=== PATIENT | female | born 1960 | race Caucasian/White ===

== ENCOUNTER 2016-11-05 08:02 | Day surgery (SDC) | payer SELFPAY ==
[~2016-11-05] VITALS: Ht 162.6 cm; Wt 73.5 kg
[2016-11-05] VITALS (13 sets, daily range): BP systolic 112–146; BP diastolic 62–107
[~2016-11-05 08:02] MED LIST: ACID MED; ACYC200C PO; ACYCLOVIR 200 MG PO; ACYSUS PO; ASP81TEC PO; ATOR20TA66 PO; ATOR80TA PO; CALC-760 PO; CALC-787 PO; CALC-794 PO; CANA100T PO; CLOP75TA PO; CLOP75TA28 PO; CLPD75T PO; CYCL-97 PO; DEXL60CA5 PO; DULO60CA6 PO; GBPN600T PO; GLIM4TAB PO; HYDR-3454 PO; HYDR1TAB PO; LEVO125T6 PO; LVT.1T PO; MAGN400C PO; MAGN400T6 PO; MELO-198 PO; METF-380 PO; MULT-963 PO; NITR100C3 PO; OMEG-109 PO; OMEP20CA12 PO; OMG1KC PO; PIOG30TA38 PO; POTA10TA36 PO; POTA99TA7 PO; QNPR20T PO; SITA1TAB6 PO; VARE1TAB17 PO; [UNRECOGNIZED DRUG - OTHER] PO
[2016-11-05] MEDS ORDERED: NS IV 1000 ML 1,000 ML ONE (08:03)
[2016-11-05] MEDS ORDERED: LIDOCAINE 1% INJ 20 ML (XYLOCAINE) VIAL ONE (08:03)
[2016-11-05] MEDS ORDERED: HEParin (CATH LAB) 2,000 ML IV ONE (08:03)
--- OUTSIDE RECORDS SUMMARY | 2016-11-05 08:05 | XMS REPORT ---
Author Author NADYA DOUGHERTY [facility] Address [address] [place] [address] Care Team Providers Care Format Proofreader Name Role Phone NADYA DOUGHERTY Unavailable PROBLEMS Type Condition ICD9-CM Code AQH43-GT Code Onset Dates Condition Status SNOMED Code Problem Pain in joint, ankle and foot 719.47 Active 025275979 Problem Need for prophylactic vaccination and inoculation, Influenza V04.81 Active 052527320 Problem Unspecified hypertrophic and atrophic condition of skin 701.9 Active 607114447 Problem Depressive disorder, not elsewhere classified 311 Active 41399036 Problem Personal history of tobacco use, presenting hazards to health V15.82 Active 7710647131841 Problem Pain in joint, pelvic region and thigh 719.45 Active 765261826 Problem Neoplasm of uncertain behavior, site unspecified 238.9 Active 785824123 Problem Esophageal reflux 530.81 Active 413753394 Problem Hallux valgus (acquired) 735.0 Active 65050583 Problem Type 2 diabetes mellitus with other diabetic neurological complication E11.49 Active 357302045 Problem Cough 786.2 Active 41173003 Problem Neuritis due to diabetes mellitus E11.41 Active 570821999 Problem Unspecified disorders of bursae and tendons in shoulder region 726.10 Active 52449785 Problem Hyperlipidemia, unspecified hyperlipidemia E78.5 Active 79897891 Problem Type 2 diabetes mellitus with complication E11.8 Active 77010243 Problem Postoperative hypothyroidism E89.0 Active 86682007 Problem Type I diabetes mellitus with peripheral circulatory disorder E10.51 Active 69646614 Problem DM neuro manif type II E11.49 Active 17507565 Problem ZOSTAVAX DX V05.8 Active 20266485 Problem Nontoxic uninodular goiter 241.0 Active 396212236 Problem Coronary atherosclerosis of unspecified type of vessel, [place] or graft 414.00 Active 00748432 Problem 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 881396071 Problem Diabetes E11.9 Active 43445077 Problem 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 Active 8829538 Problem Cervicalgia M54.2 Active 53265437 Problem Retinopathy H35.00 Active 748120987 Problem Lesion of ulnar nerve 354.2 Active 335513142 Problem Lesion of plantar nerve 355.6 Active 385295598 Problem 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 Active 06544024 Problem Nontoxic multinodular goiter 241.1 Active 57593442 Problem Pain in soft tissues of limb 729.5 Active 30027745 Problem Atherosclerosis of [place] arteries of the extremities, unspecified 440.20 Active 620574670360640 Problem Nausea with vomiting 787.01 Active 15398718 Problem Unspecified hereditary and idiopathic peripheral neuropathy 356.9 Active 546918737 Problem Arthralgia of temporomandibular joint 524.62 Active 02598480 Problem Diabetes 250.00 Active 54985855 Problem Postsurgical hypothyroidism 244.0 Active 72456820 Problem 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 Active 324245501 Problem Chronic cholecystitis 575.11 Active 25560887 Problem History of stress test Z92.89 Active 829522150 ALLERGIES Unknown Allergies SOCIAL HISTORY No smoking Hx information available PLAN OF CARE VITAL SIGNS MEDICATIONS Medication Instructions Dosage Frequency Start Date End Date Duration Status Actos 30 MG Orally Once a day 1 tablet 24h Oct, Active Invokana 100 MG Orally Once a day 1 tablet 24h December, 90 days Active RESULTS No Results PROCEDURES No Known procedures IMMUNIZATIONS No Known Immunizations
[2016-11-05] MEDS ORDERED: NS IV 1000 ML 1,000 ML IV SCH (08:30)
[2016-11-05 08:43] LABS: MEAN PLATELET VOLUME 8.6 FL (7.4-10.4); RED BLOOD COUNT 4.08 10^6/uL (4.35-5.85); RED CELL DISTRIBUTION WIDTH 14.8 % (10.0-14.5); WHITE BLOOD COUNT 9.6 10^3/uL (4.3-11.0)
[2016-11-05 08:44] LABS: BILIRUBIN,URINE NEGATIVE (NEGATIVE); KETONES,URINE NEGATIVE (NEGATIVE); LEUKOCYTE ESTERASE ,URINE 2+ (NEGATIVE); NITRITE,URINE POSITIVE (NEGATIVE); PH,URINE 6.5 (5-9); PROTEIN,URINE 2+ (NEGATIVE); UROBILINOGEN,URINE NORMAL (NORMAL)
[2016-11-05 08:51] LABS: PROTHROMBIN TIME PATIENT 12.6 SEC (12.2-14.7)
[2016-11-05 09:00] LABS: SQUAMOUS EPITHELIAL CELL,UR 0-2 /HPF; WBC,URINE 25-50 /HPF
[2016-11-05] MEDS ORDERED: MIDAZOLAM 5 MG/5 ML (VERSED) VIAL ONE (09:01)
[2016-11-05] MEDS ORDERED: fentaNYL INJECTION 100 MCG/2 ML AMP ONE (09:01)
[2016-11-05 09:02] LABS: ALBUMIN 4.1 G/DL (3.2-4.5); BILIRUBIN,TOTAL 0.3 MG/DL (0.1-1.0); CALCIUM 9.6 MG/DL (8.5-10.1); CREATININE SERUM 1.01 MG/DL (0.60-1.30); TOTAL PROTEIN 7.8 G/DL (6.4-8.2)
[2016-11-05] MEDS ORDERED: TICA90TA PO (09:18)
[2016-11-05] MEDS ORDERED: METF500T4 PO (09:18)
[2016-11-05] MEDS ORDERED: CETI10TA17 PO (09:18)
--- NOTE | 2016-11-05 09:22 | Diagnostic Imaging Report ---
EXAMINATION: Portable upright radiograph of the chest. INDICATION: Peripheral arterial disease. FINDINGS: The heart size is normal. The lungs are hyperinflated. No focal consolidation. No effusion nor pneumothorax. The mediastinum and zeke appear unremarkable. IMPRESSION: Hyperinflated clear lungs. Dictated by: Dictated on workstation # [id number]
[2016-11-05] MEDS ORDERED: NITROGLYCERIN DRIP 25 MG/D5W 250 ML IV ONE (09:27)
[2016-11-05] MEDS ORDERED: HEParin 1000 UNIT/ML (10ML VIAL) FOR BOLUS ONE (09:27)
--- NOTE | 2016-11-05 09:42 | Cardiac Procedure Note-CS/ASA ---
Pre-Procedure Note Pre-Op Procedure Note H&P Reviewed The H&P was reviewed, patient examined and no changes noted. Date H&P Reviewed: Nov 05, 2016 Time H&P Reviewed: 09:42 Conscious Sedation Pre-Proced Time Reviewed: 09:42 ASA Class: 3 Airway Mallampati Classification: ([place] appropriate class) I. II. III, IV Lungs Heart ASA score ASA 1: a normal healthy patient ASA 2: a patient with a mild systemic disease (mid diabetes, controlled hypertension, obesity x ASA 3: a patient with a severe systemic disease that limits activity (angina , COPD, prior Myocardial infarction) ASA 4: a patient with an incapacitating disease that is a constant threat to life (CHF, renal failure) ASA 5: a moribund patient not expected to survive 24 hrs. (ruptured aneurysm) ASA 6: a declared brain patient whose organs are being harvested. For emergent operations, add the letter E after the classification Grade 3 Sedation Plan: Analgesia, Amnesia, Plan communicated to team members, Discussed options with patient/fam, Discussed risks with patient/fam Note The patient is an appropriate candidate to undergo the planned procedure, sedation, and anesthesia. The patient immediately re-assessed prior to indication. JESSIE ESPINAL MD Nov 05, 2016 09:42
[2016-11-05] MEDS ORDERED: TICAGRELOR 90 MG TABLET (BRILINTA) PO ONE (10:58)
[2016-11-05] MEDS ORDERED: ASPIRIN 325 MG (5 GR) TABLET ONE (10:58)
[2016-11-05] MEDS ORDERED: PATIENT MAY USE OWN MEDS, ALL PO SCH (11:15)
[2016-11-05] MEDS: NS IV 1000 ML 1,000 ML IV SCH (11:30)
[2016-11-05] MEDS ORDERED: PANTOPRAZOLE 20 MG TABLET (PROTONIX) PO SCH (18:00)
[2016-11-05] MEDS ORDERED: ACYCLOVIR 200 MG CAP (ZOVIRAX) PO SCH (18:00)
[2016-11-05] MEDS: GLIMEPIRIDE 4 MG (AMARYL) TAB PO SCH (19:19)
[2016-11-05] MEDS: MAGNESIUM OXIDE (MAG-OX)400 MG TAB PO SCH (19:19)
[2016-11-05] MEDS: POTASSIUM 99 MG TAB PO SCH (19:20)
[2016-11-05] MEDS: GABAPENTIN 600 MG (NEURONTIN) TAB PO SCH ×2 (19:23→21:11)
[2016-11-05] MEDS: ACYCLOVIR 200 MG CAP (ZOVIRAX) PO SCH (19:23)
[2016-11-05] MEDS ORDERED: LORATADINE (CLARITIN) 10 MG TAB PO SCH (21:00)
[2016-11-05] MEDS ORDERED: GABAPENTIN 600 MG (NEURONTIN) TAB PO SCH (21:00)
[2016-11-05] MEDS ORDERED: ATORVASTATIN 20 MG (LIPITOR) TABLET PO SCH (21:00)
[2016-11-05] MEDS: TICAGRELOR 90 MG TABLET (BRILINTA) PO SCH (21:09)
[2016-11-05] MEDS: ceTIRizine 10 MG (ZyrTEC) TAB NON-FORMULARY PO SCH (21:09)
[2016-11-05] MEDS: DULOXETINE 60 MG CAPSULE PO SCH (21:10)
[2016-11-05] MEDS: OMEPRAZOLE 20 MG (PriLOSEC) CAP NON-FORMULARY PO SCH (21:10)
[2016-11-05] MEDS: ATORVASTATIN 20 MG (LIPITOR) TABLET PO SCH (21:12)
[2016-11-06] VITALS: BP 118/71
[2016-11-06] MEDS: NS IV 1000 ML 1,000 ML IV SCH ×5 (00:34→16:57)
[2016-11-06 04:00] VITALS: BP 108/86
[2016-11-06 04:26] LABS: MEAN PLATELET VOLUME 8.8 FL (7.4-10.4); RED BLOOD COUNT 3.88 10^6/uL (4.35-5.85); RED CELL DISTRIBUTION WIDTH 14.9 % (10.0-14.5); WHITE BLOOD COUNT 11.3 10^3/uL (4.3-11.0)
[2016-11-06 04:47] LABS: ANION GAP 11 MMOL/L (5-14); BLOOD UREA NITROGEN 25 MG/DL (7-18); BUN/CREATININE RATIO 27; CALCIUM 9.2 MG/DL (8.5-10.1); CARBON DIOXIDE 20 MMOL/L (21-32); CHLORIDE 108 MMOL/L (98-107); CREATININE SERUM 0.93 MG/DL (0.60-1.30); GFR ESTIMATED > 60; GLUCOSE 164 MG/DL (70-105); POTASSIUM 4.1 MMOL/L (3.6-5.0); SODIUM 139 MMOL/L (135-145)
[2016-11-06] MEDS: LEVOTHYROXINE 125 MCG (LEVOTHROID) TABLET PO SCH (06:40)
[2016-11-06] MEDS: GLIMEPIRIDE 4 MG (AMARYL) TAB PO SCH ×2 (06:40→18:19)
[2016-11-06] MEDS: OMEPRAZOLE 20 MG (PriLOSEC) CAP NON-FORMULARY PO SCH ×2 (06:41→18:21)
[2016-11-06] MEDS: PIOGLITAZONE 30MG (ACTOS) TAB PO SCH (06:42)
[2016-11-06] MEDS: POTASSIUM 99 MG TAB PO SCH ×2 (06:42→18:18)
[2016-11-06] MEDS: GABAPENTIN 600 MG (NEURONTIN) TAB PO SCH ×3 (06:43→21:01)
[2016-11-06] MEDS: ASPIRIN E.C. 81 MG (ECOTRIN) TAB PO SCH (08:02)
[2016-11-06] MEDS: TICAGRELOR 90 MG TABLET (BRILINTA) PO SCH ×2 (08:02→21:01)
--- NOTE | 2016-11-06 08:03 | Cardiology Progress Note ---
Subjective Subjective/Events-last exam patient is feeling well, no complaint. Review of Systems General: No Chills, No Night Sweats, No Fatigue, No Malaise, No Appetite, No Other HEENT: No Head Aches, No Visual Changes, No Eye Pain, No Ear Pain, No Dysphasia , No Sinus Congestion, No Post Nasal Drip, No Sore Throat, No Other Pulmonary: No Dyspnea, No Cough, No Pleuritic Chest Pain, No Other Cardiovascular: No: Chest Pain, Edema, Lt Headedness, Orthopnea, Other, Palpitations, Paroxysmal Noc. Dyspnea Objective-Cardiology Exam Last Set of Vital Signs Vital Signs 11/06/16 04:00 Temp 97.2 Pulse 101 B/P 108/86 Pulse Ox 94 O2 Delivery Room Air Capillary Refill : Less Than 3 Seconds I&O Bad tableGeneral: Alert, Oriented X3, Cooperative HEENT: Atraumatic, PERRLA Neck: Supple, No JVD, No Thyromegaly Lungs: Clear to Auscultation, Normal Air Movement Heart: Regular Rate, Normal S1, Normal S2, No Murmurs Abdomen: Normal Bowel Sounds, Soft, No Tenderness, No Hepatosplenomegaly, No Masses Extremities: No Clubbing, No Cyanosis, No Edema, Normal Pulses, No Tenderness/ Swelling Skin: No Rashes, No Breakdown, No Significant Lesion Neuro: Normal Gait, Normal Speech, Strength at 5/5 X4 Ext, Normal Tone, Sensation Intact Psych/Mental Status: Mental Status NL, Mood NL Results Lab Laboratory Tests 11/05/16 08:36 11/06/16 03:52 A/P-Cardiology Admission Diagnosis Peripheral arterial disease Hypertension Hyperlipidemia Tobaccoism Assessment/Plan Extensive peripheral arterial disease status post balloon angioplasty and stent to the left SFA, planning for intervention on the right. Coronary artery disease, clinically stable Hypertension, controlled Hyperlipidemia, controlled Tobaccoism educated on smoking cessatio Diabetes mellitus, controlled Clinical Quality Measures DVT/VTE Risk/Contraindication: Risk Factor Score Per Nursin RFS Level Per Nursing on Admit: 4+=Very High JESSIE ESPINAL MD Nov 06, 2016 08:03
[2016-11-06] MEDS: FISH OIL 1200 MG CAPSULE PO SCH (08:04)
--- NOTE | 2016-11-06 08:04 | Cardiac Procedure Note-CS/ASA ---
Pre-Procedure Note Pre-Op Procedure Note H&P Reviewed The H&P was reviewed, patient examined and no changes noted. Date H&P Reviewed: Nov 06, 2016 Time H&P Reviewed: 08:04 Conscious Sedation Pre-Proced Time Reviewed: 08:04 ASA Class: 3 Airway Mallampati Classification: ([place] appropriate class) I. II. III, IV Lungs Heart ASA score ASA 1: a normal healthy patient ASA 2: a patient with a mild systemic disease (mid diabetes, controlled hypertension, obesity x ASA 3: a patient with a severe systemic disease that limits activity (angina , COPD, prior Myocardial infarction) ASA 4: a patient with an incapacitating disease that is a constant threat to life (CHF, renal failure) ASA 5: a moribund patient not expected to survive 24 hrs. (ruptured aneurysm) ASA 6: a declared brain patient whose organs are being harvested. For emergent operations, add the letter E after the classification Grade 3 Sedation Plan: Analgesia, Amnesia, Plan communicated to team members, Discussed options with patient/fam, Discussed risks with patient/fam Note The patient is an appropriate candidate to undergo the planned procedure, sedation, and anesthesia. The patient immediately re-assessed prior to indication. JESSIE ESPINAL MD Nov 06, 2016 08:04
[2016-11-06] MEDS: INVOKANA 100 MG TAB PO SCH (08:05)
[2016-11-06] MEDS: QUINAPRIL 20 MG (ACCUPRIL) TAB PO SCH (08:05)
[2016-11-06 08:13] VITALS: BP 123/70
--- NOTE | 2016-11-06 10:59 | PROCEDURE REPORT ---
PROCEDURE PHYSICIAN: JESSIE ESPINAL PERIPHERAL ANGIOGRAM WITH BILATERAL RUNOFF DATE OF PROCEDURE: 11/05/2016 REFERRING PHYSICIAN: [facility]. BRIEF HISTORY: Mrs. Odonnell is a 56-year-old lady with peripheral arterial disease, coronary artery disease. She is still an active smoker, had worsening of her leg pain and abnormal SERGIO. She had an interventions done in April 2016. PROCEDURE NOTE: After explaining the procedure to the patient, all pros and cons were explained. All questions were answered. The patient signed a consent, then she was placed on the cardiac catheterization laboratory. The right groin was prepped in a sterile fashion. Local anesthesia applied to the right groin. 6-Argentine sheath was placed in the right femoral artery. Runoff of the right lower extremity was done, then a pigtail catheter was advanced to the abdominal aorta. Abdominal aortogram was done. I crossed over using the pigtail with a Storq wire, then exchanged the pigtail into a straight catheter placed in the common iliac artery and runoff of the left lower extremity was done. Then I proceeded with advancement of the wire and placement of the straight catheter down to the popliteal artery. Angiogram of the left lower extremity was done. Then, I evaluated the trifurcation, then I did another view with evaluation using DSA to the calf area and foot area. At that time I reconnected the pressure to the straight catheter, flushed the catheter and evaluate the pressure gradient and there was about 40 mmHg gradient between the popliteal artery and the common femoral artery. There was significant step-off at the proximal SFA and mid and distal SFA. I reintroduced the Storq wire. It dilated the distal portion with a drug coated balloon Lutonix 5.0 x 150 mm. I used the same balloon to dilate the proximal portion and then I used a second Lutonix 6.0 x 150 mm to the proximal SFA. Angiogram showed excellent results. Proximal to that area there was an area of dissection with sluggish flow, dilated with Ashby balloon 6.0 x 80 mm then deployment of a Supera stent 5.5 x 60 mm with excellent results. Post dilated with a 5.0 Lutonix balloon. Angiogram showed excellent results with excellent flow down to the foot. No residual stenosis was noted. The sheath was exchanged into short 6-Argentine sheath. Mynx device deployed. Hemostasis achieved. No complication noted. FINDINGS: 1. Right lower extremity: The patient has two Supera stents 5.5, which were patent. Proximal to the stent there is an area of severe stenosis about 80 to 90% stenosis. 2. Abdominal aortogram: Abdominal aortogram showed mild atherosclerotic disease, nonobstructive disease at the bifurcation. 3. Left lower extremity: The left lower extremity runoff showed multiple segments of severe stenosis with significant gradient during pullback pressure by catheter. Successful drug coated balloon using in the popliteal artery and distal SFA Lutonix 5.0 x 150 mm and the proximal and mid SFA using Lutonix 6.0 x 150 mm with excellent results. At the proximal portion of the SFA there was a small dissection with 70% stenosis. Successful deployment of Supera stent 5.5 x 60 mm with excellent results. No residual stenosis. DISCUSSION AND RECOMMENDATION: The patient was bolused with aspirin and Brilinta. I will continue monitoring her and planning to intervene on the right lower extremity tomorrow. I did not want to discharge her and bring her back due to the fact that she uses metformin and require holding the metformin for 2 days prior and 2 days after the procedure in addition to the readmission labs and work-up. Job ID: [id number] Dictated Date: 11/05/2016 11:16:40 Boiler Operator Date: 11/06/2016 10:46:36 / amita
[2016-11-06 12:00] VITALS: BP 102/56
[2016-11-06] MEDS ORDERED: MIDAZOLAM 5 MG/5 ML (VERSED) VIAL ONE (14:35)
[2016-11-06] MEDS ORDERED: NS IV 1000 ML 1,000 ML ONE (14:35)
[2016-11-06] MEDS ORDERED: fentaNYL INJECTION 100 MCG/2 ML AMP ONE (14:35)
[2016-11-06] MEDS ORDERED: HEParin 1000 UNIT/ML (10ML VIAL) FOR BOLUS ONE (14:35)
[2016-11-06] MEDS ORDERED: NITROGLYCERIN DRIP 25 MG/D5W 250 ML IV ONE (14:35)
[2016-11-06] MEDS ORDERED: HEParin (CATH LAB) 2,000 ML IV ONE (14:35)
[2016-11-06] MEDS ORDERED: LIDOCAINE 1% INJ 20 ML (XYLOCAINE) VIAL ONE (14:35)
[2016-11-06 16:00] VITALS: BP 111/56
[2016-11-06] MEDS ORDERED: PATIENT MAY USE OWN MEDS, ALL PO SCH (16:00)
[2016-11-06] MEDS: MAGNESIUM OXIDE (MAG-OX)400 MG TAB PO SCH (18:20)
[2016-11-06] MEDS: ACYCLOVIR 200 MG CAP (ZOVIRAX) PO SCH (18:21)
[2016-11-06 20:00] VITALS: BP 93/73
[2016-11-06] MEDS: ceTIRizine 10 MG (ZyrTEC) TAB NON-FORMULARY PO SCH (21:00)
[2016-11-06] MEDS: ATORVASTATIN 20 MG (LIPITOR) TABLET PO SCH (21:01)
[2016-11-06] MEDS: DULOXETINE 60 MG CAPSULE PO SCH (21:02)
[2016-11-07] VITALS: BP 125/69
[2016-11-07] MEDS: NS IV 1000 ML 1,000 ML IV SCH (01:57)
[2016-11-07 03:58] LABS: RED BLOOD COUNT 3.72 10^6/uL (4.35-5.85); RED CELL DISTRIBUTION WIDTH 15.1 % (10.0-14.5); WHITE BLOOD COUNT 9.7 10^3/uL (4.3-11.0)
[2016-11-07 04:00] VITALS: BP 116/62
[2016-11-07 04:07] LABS: ANION GAP 11 MMOL/L (5-14); BLOOD UREA NITROGEN 18 MG/DL (7-18); CARBON DIOXIDE 18 MMOL/L (21-32); CHLORIDE 109 MMOL/L (98-107); CREATININE SERUM 0.86 MG/DL (0.60-1.30); POTASSIUM 4.2 MMOL/L (3.6-5.0); SODIUM 138 MMOL/L (135-145)
[2016-11-07 04:08] LABS: BUN/CREATININE RATIO 21; CALCIUM 9.1 MG/DL (8.5-10.1); GFR ESTIMATED > 60; GLUCOSE 179 MG/DL (70-105)
[2016-11-07] MEDS: LEVOTHYROXINE 125 MCG (LEVOTHROID) TABLET PO SCH (05:39)
[2016-11-07] MEDS: OMEPRAZOLE 20 MG (PriLOSEC) CAP NON-FORMULARY PO SCH (06:40)
[2016-11-07] MEDS: POTASSIUM 99 MG TAB PO SCH (07:47)
[2016-11-07] MEDS: FISH OIL 1200 MG CAPSULE PO SCH (07:47)
[2016-11-07] MEDS: GLIMEPIRIDE 4 MG (AMARYL) TAB PO SCH (07:47)
[2016-11-07] MEDS: PIOGLITAZONE 30MG (ACTOS) TAB PO SCH (07:48)
[2016-11-07] MEDS: GABAPENTIN 600 MG (NEURONTIN) TAB PO SCH (07:49)
--- NOTE | 2016-11-07 08:03 | Cardiology Discharge Summary ---
Diagnosis/Chief Complaint Date of Admission November 05, 2016 Date of Discharge November 07, 2016 Admission Diagnosis Peripheral arterial disease Hypertension Hyperlipidemia Tobaccoism Discharge Diagnosis peripheral arterial disease Hypertension Hyperlipidemia Diabetes mellitus Tobaccoism Chief Complaint/HPI Chief Complaint/HPI 56-year-old lady with extensive peripheral arterial disease, has been having cramps and pain, underwent competent intervention to the right SFA in April 2016, having more symptoms, SERGIO was abnormal bilaterally. I proceeded with angiogram and complex intervention to the left lower extremity using the right groin access. Excellent results. She was monitored overnight and then I brought her back and evaluated the right leg using the left groin access and patient had drug-coated balloon angioplasty then a stent deployment due to dissection. Excellent results. This morning she is feeling well, groins are healing well. Pedal pulses palpable bilaterally. Educated in length about smoking cessation Discharge Summary Hospital Course Hospital Course Extensive peripheral arterial disease status post balloon angioplasty and stent to the left SFA, then angioplasty and stent to the right SFA with excellent results. Coronary artery disease, clinically stable Hypertension, controlled Hyperlipidemia, controlled Tobaccoism educated on smoking cessation Diabetes mellitus, controlled, planning for discharge today. Patient was educated in length about condition, educated on smoking cessation. We will discharge her today Labs Laboratory Tests 11/05/16 08:36: Blood Urea Nitrogen 29H, Glucose Level 255H, Red Blood Count 4.08L, Red Cell Distribution Width 14.8H, Urine Bacteria FEWH, Urine Glucose (UA) 4+H, Urine Leukocyte Esterase 2+H, Urine Nitrite POSITIVEH, Urine Protein 2+H, Urine RBC ( Auto) 2+H, Urine Specific [place] 1.015L, Urine WBC 25-50H 11/06/16 03:52: Blood Urea Nitrogen 25H, Glucose Level 164H, Red Blood Count 3.88L, Red Cell Distribution Width 14.9H, Carbon Dioxide Level 20L, Chloride Level 108H, White Blood Count 11.3H 11/07/16 03:15: Glucose Level 179H, Red Blood Count 3.72L, Red Cell Distribution Width 15.1H, Carbon Dioxide Level 18L, Chloride Level 109H, Hematocrit 34L, Hemoglobin 11.4L Procedures None. Discharge Physical Examination Allergies: Coded Allergies: lovastatin (Unverified Allergy, Unknown, 09/03/11) Vitals & I&Os Vital Signs Date Time Temp Pulse Resp B/P Pulse Ox O2 Delivery O2 Flow Rate FiO2 11/07/16 07:00 84 11/07/16 04:00 98.2 18 116/62 94 Room Air General Appearance: Alert, Oriented X3, Cooperative, No Acute Distress HEENT: Atraumatic, PERRLA Respiratory: Clear to Auscultation, Normal Air Movement Cardiovascular: Regular Rate, Normal S1, Normal S2, No Murmurs Abdominal: Normal Bowel Sounds, Soft, No Tenderness, No Hepatosplenomegaly, No Masses Extremities: No Clubbing, No Cyanosis, No Edema, Normal Pulses, No Tenderness/ Swelling Skin: No Rashes, No Breakdown, No Significant Lesion Neuro: Normal Gait, Normal Speech, Strength at 5/5 X4 Ext, Normal Tone, Sensation Intact, Cranial Nerves 3-12 NL, Reflexes 2+ Psych/Mental Status: Mental Status NL, Mood NL Discharge Home Medications Reviewed and agree with Discharge Medication list on patient's Discharge Instruction sheet Instructions to Patient/Family Please see electonic discharge instructions given to patient. Clinical Quality Measures DVT/VTE Risk/Contraindication: Risk Factor Score Per Nursin RFS Level Per Nursing on Admit: 4+=Very High JESSIE ESPINAL MD Nov 07, 2016 08:03
--- NOTE | 2016-11-07 08:04 | Discharge Inst-Post CATH ---
Discharge Inst-CATH Post Cardiac Cath D/C Inst Follow Up/Plan Hold metformin for [address] Vallejo's office in 2-4 weeks CARDIAC CATH DISCHARGE INSTRUCTIONS *Hold Metformin for 48 hours post heart cath. ACTIVITY * Go Home directly and rest. * Limit activity of the leg (or wrist if it was used) for 7 days including aerobics, swimming, jogging, bicycling, etc. * Restrict stair-climbing for 7 days if possible, if not, climb up with your non -cath leg, then bring together on the same step. * Avoid lifting, pushing, pulling or excessive movement of the affected extremity for 7 days. * Customary sexual activity may be resumed after 2 days-use caution not to use a position that strains or causes pain to the affected extremity. * No driving for 24 hours. * NO SMOKING. * Avoid straining for bowel movements for 7 days. * Gentle walking on level ground is allowed. * Returning to work will depend on the type of procedure and the results. Your doctor will discuss this with you. CALL YOUR DOCTOR FOR ANY OF THE FOLLOWING: *If bleeding from the puncture site occurs- Apply gentle pressure to site with clean cloth and call your doctor or EMS. * If a knot or lump forms under the skin, increases in size, or causes pain. * If bruising appears to be worsening or moving further down your leg instead of disappearing. * Temperature above 101 F. CARE OF YOUR GROIN INCISION; * Bruising or purple discoloration of the skin near the puncture site is common. * You may shower only, no bathtub bathing for 5 days. Be careful to avoid slipping as your leg may feel stiff. * If a closure device was used on your femoral artery, please see the attached guide regarding care of the device and your leg. * REMOVE the dressing from your groin the next day after your procedure in the shower. CARE OF YOUR WRIST INCISION; * Bruising or purple discoloration of the skin near the puncture site is common. * You may shower. * DO NOT submerge wrist. * Remove dressing in 24 hours. JESSIE VALLEJO MD Nov 07, 2016 08:04
[2016-11-07 08:07] VITALS: BP 124/60
[2016-11-07] MEDS: TICAGRELOR 90 MG TABLET (BRILINTA) PO SCH (09:30)
[2016-11-07] MEDS: INVOKANA 100 MG TAB PO SCH (09:31)
[2016-11-07] MEDS: QUINAPRIL 20 MG (ACCUPRIL) TAB PO SCH (09:31)
[2016-11-07] MEDS: ASPIRIN E.C. 81 MG (ECOTRIN) TAB PO SCH (09:31)
--- NOTE | 2016-11-07 10:02 | PROCEDURE REPORT ---
PROCEDURE PHYSICIAN: JESSIE ESPINAL PERIPHERAL ANGIOGRAM DATE OF PROCEDURE: 11/06/2016 BRIEF HISTORY: Mrs. Odonnell underwent complex intervention yesterday for the left lower extremity. She was noted to have severe stenosis in the right lower extremity. I decided to stage her due to the fact that she will need different access. PROCEDURE NOTE: After explaining the procedure to the patient she was brought to the cardiac catheterization laboratory. Left groin was prepped. Swedish sheath was placed in the left femoral artery. A crossover catheter was used and advanced a Storq wire then a long 6-Swedish sheath was placed, advanced to the right femoral artery. Angiogram was done. Then I used V 18 wire, advanced distally, then proceeded with a Lutonix 5 x 100 mm for severe stenosis in the proximal SFA. Then there was in-stent restenosis. I ballooned the in-stent restenosis and angiogram showed some dissection in the proximal SFA limiting with questionable flow limitation. I decided to proceed with another Supera stent deployment using Supera 5.5 x 100 to the proximal SFA. The 5.0 balloon was reintroduced and a balloon overlap area in the proximal area of the stent. Angiogram showed excellent results with good flow down to the foot. Then I exchanged the sheath into a short 6-Swedish sheath. Pigtail catheter advanced. Abdominal aorta: Abdominal aortogram was done and showed no complication. Then runoff to the left lower extremity also was done through the short 6-Swedish sheath, which showed patent stent with good flow. CONCLUSION: 1. A patent stent in the left lower extremity with small vessel disease. 2. Severe in-stent restenosis in the right lower extremity. Successful Lutonix drug coated balloon deployment and then the deployment of Supera stent in the proximal SFA 5.5 x 100 mm overlapping with the old stent with excellent results with excellent flow distally. DISCUSSION AND RECOMMENDATION: I will continue maximizing medical therapy. Job ID: [id number] Dictated Date: 11/06/2016 16:08:43 Psychiatry Resident Date: 11/07/2016 09:51:47 / amita
[2016-11-07 10:05] VITALS: BP 124/60
== END 2016-11-07 10:05 | disposition home or self-care (01) ==
LOC: CATH 08:02 → ICU 11:20 → CATH 11-07 10:05
PROVIDERS: ATTEND Internal Medicine Cardiovascular Disease
DX: I70.203 Unspecified atherosclerosis of native arteries of extremities, bilateral legs (principal); T82.856A Stenosis of peripheral vascular stent, initial encounter; I10 Essential (primary) hypertension; E78.5 Hyperlipidemia, unspecified; E11.9 Type 2 diabetes mellitus without complications; I25.10 Atherosclerotic heart disease of native coronary artery without angina pectoris; Z95.5 Presence of coronary angioplasty implant and graft; E89.0 Postprocedural hypothyroidism; K21.9 Gastro-esophageal reflux disease without esophagitis; Z72.0 Tobacco use; Z79.84 Long term (current) use of oral hypoglycemic drugs; Z79.899 Other long term (current) drug therapy; Z95.820 Peripheral vascular angioplasty status with implants and grafts
CPT/HCPCS: 36247; 36415; 37226; 71010; 75625; 75716; 75774; 80048; 80053; 80061; 81000; 85027; 85347; 85610; 85730; 87081; 87088; 93005

== ENCOUNTER 2017-04-02 09:57 | Outpatient (RCR) | payer OTHER ==
[~2017-04-02 09:57] MED LIST changes: +CETI10TA17 PO; +METF500T4 PO; +TICA90TA PO
== END 2017-04-02 10:33 | disposition home or self-care (01) ==
PROVIDERS: ATTEND Nurse Practitioner Community Health
DX: M54.2 Cervicalgia (principal)

== ENCOUNTER 2017-05-06 20:43 | Emergency (ER) | payer SELFPAY ==
[~2017-05-06] VITALS: Ht 162.6 cm; Wt 73.5 kg
--- OUTSIDE RECORDS SUMMARY | 2017-05-06 20:49 | XMS REPORT ---
Author Author EMANI MARIA [facility] eClinical[employer] Address Unknown Phone Unavailable Care Team Providers Care Staining Machine Operator Name Role Phone EMANI MARIA CP Unavailable Allergies No Known Allergies Problems Problem Type Condition Code Onset Dates Condition Status Problem Need for prophylactic vaccination and inoculation, Influenza V04.81 Active Problem 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 Active Problem Depressive disorder, not elsewhere classified 311 Active Problem Pain in joint, ankle and foot 719.47 Active Problem Unspecified hypertrophic and atrophic condition of skin 701.9 Active Problem Personal history of tobacco use, presenting hazards to health V15.82 Active Problem Pain in joint, pelvic region and thigh 719.45 Active Problem Neoplasm of uncertain behavior, site unspecified 238.9 Active Problem Esophageal reflux 530.81 Active Problem 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 Active Problem Hallux valgus (acquired) 735.0 Active Problem Type 2 diabetes mellitus with other diabetic neurological complication E11.49 Active Problem Cough 786.2 Active Problem Neuritis due to diabetes mellitus E11.41 Active Problem Postoperative hypothyroidism E89.0 Active Problem Hyperlipidemia, unspecified hyperlipidemia E78.5 Active Problem DM neuro manif type II E11.49 Active Problem Cervicalgia M54.2 Active Problem Nontoxic uninodular goiter 241.0 Active Problem 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 Assessment Type I diabetes mellitus with peripheral circulatory disorder E10.51 Active Problem Type I diabetes mellitus with peripheral circulatory disorder E10.51 Active Problem Unspecified disorders of bursae and tendons in shoulder region 726.10 Active Assessment Type 2 diabetes mellitus with other diabetic neurological complication E11.49 Active Problem 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 Active Problem Type 2 diabetes mellitus with complication E11.8 Active Problem Retinopathy H35.00 Active Problem Diabetes E11.9 Active Problem Nausea with vomiting 787.01 Active Problem Unspecified hereditary and idiopathic peripheral neuropathy 356.9 Active Problem Lesion of ulnar nerve 354.2 Active Problem Lesion of plantar nerve 355.6 Active Problem Postsurgical hypothyroidism 244.0 Active Problem ZOSTAVAX DX V05.8 Active Problem Pain in soft tissues of limb 729.5 Active Problem Atherosclerosis of [place] arteries of the extremities, unspecified 440.20 Active Problem Coronary atherosclerosis of unspecified type of vessel, [place] or graft 414.00 Active Problem History of stress test Z92.89 Active Problem Arthralgia of temporomandibular joint 524.62 Active Problem Diabetes 250.00 Active Problem Nontoxic multinodular goiter 241.1 Active Problem Chronic cholecystitis 575.11 Active Medications Medication Code System Code Instructions Start Date End Date Status Dosage Hydrochlorothiazide [facility] [address]-20 Jun 27, 2016 not defined Procedures Procedure Coding System Code Date Office Visit, Est Pt., Level 3 CPT-4 64405 Jun 27, 2016 DEBRIDE NAIL, 6 OR MORE CPT-4 06496 Jun 27, 2016 Results Name Result Date Reference Range Unit Abnormality Flag DEBRIDE NAIL >6 Summary Purpose eClinicalWorks Submission
--- OUTSIDE RECORDS SUMMARY | 2017-05-06 20:49 | XMS REPORT ---
Author Author EMANI MARIA [facility] eClinicalWorks Address Unknown Phone Unavailable Care Team Providers Care Coater Brake Linings Name Role Phone EMANI MARIA CP Unavailable Allergies No Known Allergies Problems Problem Type Condition Code Onset Dates Condition Status Problem Lesion of ulnar nerve 354.2 Active Problem Nausea with vomiting 787.01 Active Problem Need for prophylactic vaccination and inoculation, Influenza V04.81 Active Problem 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 Active Problem Pain in joint, ankle and foot 719.47 Active Problem Depressive disorder, not elsewhere classified 311 Active Problem Unspecified hypertrophic and atrophic condition of skin 701.9 Active Problem Personal history of tobacco use, presenting hazards to health V15.82 Active Problem Pain in joint, pelvic region and thigh 719.45 Active Problem Diabetes 250.00 Active Problem Neoplasm of uncertain behavior, site unspecified 238.9 Active Problem 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 Active Problem Esophageal reflux 530.81 Active Problem Type 2 diabetes mellitus with other diabetic neurological complication E11.49 Active Problem Hyperlipidemia, unspecified hyperlipidemia E78.5 Active Problem Neuritis due to diabetes mellitus E11.41 Active Problem Cervicalgia M54.2 Active Problem Retinopathy H35.00 Active Problem Unspecified disorders of bursae and tendons in shoulder region 726.10 Active Problem Cough 786.2 Active Assessment DM neuro manif type II E11.49 Active Problem DM neuro manif type II E11.49 Active Problem Hallux valgus (acquired) 735.0 Active Problem Type 2 diabetes mellitus with complication E11.8 Active Problem Postoperative hypothyroidism E89.0 Active Problem Diabetes E11.9 Active Problem 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 Active Problem Postsurgical hypothyroidism 244.0 Active Problem ZOSTAVAX DX V05.8 Active Problem Pain in soft tissues of limb 729.5 Active Problem Atherosclerosis of [place] arteries of the extremities, unspecified 440.20 Active Problem Coronary atherosclerosis of unspecified type of vessel, [place] or graft 414.00 Active Problem 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 Problem Arthralgia of temporomandibular joint 524.62 Active Problem Nontoxic uninodular goiter 241.0 Active Assessment Onychomycosis B35.1 Active Problem Nontoxic multinodular goiter 241.1 Active Assessment Hammer toe, unspecified laterality M20.40 Active Problem Chronic cholecystitis 575.11 Active Problem Unspecified hereditary and idiopathic peripheral neuropathy 356.9 Active Problem Lesion of plantar nerve 355.6 Active Medications No Known Medications Procedures Procedure Coding System Code Date Office Visit, Est Pt., Level 3 CPT-4 33061 Mar 28, 2016 DEBRIDE NAIL, 6 OR MORE CPT-4 24672 Mar 28, 2016 Vital Signs Date/Time: Mar 28, 2016 Blood Pressure Diastolic 56 mmHg Blood Pressure Systolic 112 mmHg Height 64 in Results No Known Results Summary Purpose eClinicalWorks Submission
--- OUTSIDE RECORDS SUMMARY | 2017-05-06 20:49 | XMS REPORT ---
Author Author NADYA DOUGHERTY [facility] Address [address] [place] [address] Care Team Providers Care Social Contact Worker Name Role Phone NADYA DOUGHERTY Unavailable PROBLEMS Type Condition ICD9-CM Code [id number] Code Onset Dates Condition Status SNOMED Code Problem Pain in joint, ankle and foot 719.47 Active 846439586 Problem Need for prophylactic vaccination and inoculation, Influenza V04.81 Active 508902203 Problem Unspecified hypertrophic and atrophic condition of skin 701.9 Active 224340499 Problem Depressive disorder, not elsewhere classified 311 Active 08686910 Problem Personal history of tobacco use, presenting hazards to health V15.82 Active 0494404830209 Problem Pain in joint, pelvic region and thigh 719.45 Active 754914291 Problem Neoplasm of uncertain behavior, site unspecified 238.9 Active 629892205 Problem Esophageal reflux 530.81 Active 664205439 Problem Hallux valgus (acquired) 735.0 Active 42594082 Problem Type 2 diabetes mellitus with other diabetic neurological complication E11.49 Active 871522177 Problem Cough 786.2 Active 38926284 Problem Neuritis due to diabetes mellitus E11.41 Active 812297548 Problem Unspecified disorders of bursae and tendons in shoulder region 726.10 Active 78253912 Problem Hyperlipidemia, unspecified hyperlipidemia E78.5 Active 57175199 Problem Type 2 diabetes mellitus with complication E11.8 Active 94731973 Problem Postoperative hypothyroidism E89.0 Active 19162165 Problem Type I diabetes mellitus with peripheral circulatory disorder E10.51 Active 79927557 Problem DM neuro manif type II E11.49 Active 83861077 Problem ZOSTAVAX DX V05.8 Active 76877685 Problem Nontoxic uninodular goiter 241.0 Active 927750099 Problem Coronary atherosclerosis of unspecified type of vessel, [place] or graft 414.00 Active 80557643 Problem 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 452187980 Problem Diabetes E11.9 Active 40097709 Problem 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 Active 5404006 Problem Cervicalgia M54.2 Active 65570686 Problem Retinopathy H35.00 Active 770072870 Problem Lesion of ulnar nerve 354.2 Active 436220161 Problem Lesion of plantar nerve 355.6 Active 690406707 Problem 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 Active 58886466 Problem Nontoxic multinodular goiter 241.1 Active 50085065 Problem Pain in soft tissues of limb 729.5 Active 67995327 Problem Atherosclerosis of [place] arteries of the extremities, unspecified 440.20 Active 988092353714029 Problem Nausea with vomiting 787.01 Active 72485882 Problem Unspecified hereditary and idiopathic peripheral neuropathy 356.9 Active 708243693 Problem Arthralgia of temporomandibular joint 524.62 Active 62997967 Problem Diabetes 250.00 Active 25922726 Problem Postsurgical hypothyroidism 244.0 Active 42699804 Problem 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
--- OUTSIDE RECORDS SUMMARY | 2017-05-06 20:49 | XMS REPORT ---
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 Active Problem Need for prophylactic vaccination and inoculation, Influenza V04.81 Active Problem Pain in joint, ankle and foot 719.47 Active Problem Depressive disorder, not elsewhere classified 311 Active Problem Lesion of plantar nerve 355.6 Active Problem Unspecified hypertrophic and atrophic condition of skin 701.9 Active Problem Nontoxic multinodular goiter 241.1 Active Problem Personal history of tobacco use, presenting hazards to health V15.82 Active Problem Chronic cholecystitis 575.11 Active Problem 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 Active Problem Diabetes 250.00 Active Problem 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 Active Problem Type 2 diabetes mellitus with complication E11.8 Active Problem Esophageal reflux 530.81 Active Problem Neoplasm of uncertain behavior, site unspecified 238.9 Active Problem Diabetes E11.9 Active Problem Pain in joint, pelvic region and thigh 719.45 Active Problem Neuritis due to diabetes mellitus E11.41 Active Problem Type 2 diabetes mellitus with other diabetic neurological complication E11.49 Active Problem Postoperative hypothyroidism E89.0 Active Problem Hyperlipidemia, unspecified hyperlipidemia E78.5 Active Problem Unspecified disorders of bursae and tendons in shoulder region 726.10 Active Problem Coronary atherosclerosis of unspecified type of vessel, [place] or graft 414.00 Active Problem 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 Problem Hallux valgus (acquired) 735.0 Active Problem Cough 786.2 Active Problem Atherosclerosis of [place] arteries of the extremities, unspecified 440.20 Active Problem Unspecified hereditary and idiopathic peripheral neuropathy 356.9 Active Problem Nontoxic uninodular goiter 241.0 Active Problem ZOSTAVAX DX V05.8 Active Medications Medication Code System Code Instructions Start Date End Date Status Dosage Trulicity [facility] [address]-08 0.75 MG/0.5ML Subcutaneous once a week Aug 15, 2015 0.5 ml Xigduo XR [facility] [address]-71 5-1000 MG Orally 2 times a day Jul 23, 2015 1 tablet Results No Known Results Summary Purpose eClinicalWorks Submission
--- OUTSIDE RECORDS SUMMARY | 2017-05-06 20:49 | XMS REPORT ---
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 Active 017277513 Problem Type I diabetes mellitus with peripheral circulatory disorder E10.51 Active 22970449 Problem Cervicalgia M54.2 Active 38499089 Problem Vaginal burning N94.9 Active 638144947 Problem Dysuria R30.0 Active 47743805 Problem Type 2 diabetes mellitus with other diabetic neurological complication E11.49 Active 695572591 Problem Hyperlipidemia, unspecified hyperlipidemia E78.5 Active 97231959 Problem History of stress test Z92.89 Active 279079385 Problem Postoperative hypothyroidism E89.0 Active 70094486 Problem 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
--- OUTSIDE RECORDS SUMMARY | 2017-05-06 20:50 | XMS REPORT ---
Author Author NADYA DOUGHERTY Organization eClinicalWorks Address Unknown Phone Unavailable Care Team Providers Care Wick Tender Name Role Phone NADYA DOUGHERTY CP Unavailable Allergies No Known Allergies Problems Problem Type Condition ICD-9 Code Onset Dates Condition Status Problem Coronary atherosclerosis of unspecified type of vessel, [place] or graft 414.00 Active Problem Arthralgia of temporomandibular joint 524.62 Active Problem Hallux valgus (acquired) 735.0 Active Problem Postsurgical hypothyroidism 244.0 Active Problem Cough 786.2 Active Problem Pain in soft tissues of limb 729.5 Active Problem Unspecified disorders of bursae and tendons in shoulder region 726.10 Active Problem Nontoxic uninodular goiter 241.0 Active Problem 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 Problem Chronic cholecystitis 575.11 Active Problem Nontoxic multinodular goiter 241.1 Active Problem 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 Active Problem Lesion of ulnar nerve 354.2 Active Problem Diabetes 250.00 Active Problem Nausea with vomiting 787.01 Active Problem Atherosclerosis of [place] arteries of the extremities, unspecified 440.20 Active Problem ZOSTAVAX DX V05.8 Active Problem Lesion of plantar nerve 355.6 Active Problem Unspecified hereditary and idiopathic peripheral neuropathy 356.9 Active Problem Depressive disorder, not elsewhere classified 311 Active Problem Unspecified hypertrophic and atrophic condition of skin 701.9 Active Problem Need for prophylactic vaccination and inoculation, Influenza V04.81 Active Problem Pain in joint, ankle and foot 719.47 Active Problem Neoplasm of uncertain behavior, site unspecified 238.9 Active Problem Esophageal reflux 530.81 Active Problem Personal history of tobacco use, presenting hazards to health V15.82 Active Problem Pain in joint, pelvic region and thigh 719.45 Active Medications Medication Code System Code Instructions Start Date End Date Status Dosage Test strips NDC 0 1 Apr 20, 2015 as directed Results No Known Results Summary Purpose eClinicalWorks Submission
--- OUTSIDE RECORDS SUMMARY | 2017-05-06 20:50 | XMS REPORT ---
Author Author NADYA DOUGHERTY Organization eClinicalWorks Address Unknown Phone Unavailable Care Team Providers Care Photo Manager Name Role Phone NADYA DOUGHERTY CP Unavailable Allergies No Known Allergies Problems Problem Type Condition Code Onset Dates Condition Status Problem Nausea with vomiting 787.01 Active Problem Pain in soft tissues of limb 729.5 Active Problem 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 Active Problem Lesion of ulnar nerve 354.2 Active Problem Need for prophylactic vaccination and inoculation, Influenza V04.81 Active Problem Pain in joint, ankle and foot 719.47 Active Problem Depressive disorder, not elsewhere classified 311 Active Problem Unspecified hypertrophic and atrophic condition of skin 701.9 Active Problem Personal history of tobacco use, presenting hazards to health V15.82 Active Problem Chronic cholecystitis 575.11 Active Problem Pain in joint, pelvic region and thigh 719.45 Active Problem Diabetes 250.00 Active Problem Neoplasm of uncertain behavior, site unspecified 238.9 Active Problem 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 Active Problem Neuritis due to diabetes mellitus E11.41 Active Problem Type 2 diabetes mellitus with other diabetic neurological complication E11.49 Active Problem Retinopathy H35.00 Active Problem Diabetes E11.9 Active Problem Cough 786.2 Active Problem Hallux valgus (acquired) 735.0 Active Problem Cervicalgia M54.2 Active Problem Esophageal reflux 530.81 Active Problem Postoperative hypothyroidism E89.0 Active Problem Hyperlipidemia, unspecified hyperlipidemia E78.5 Active Problem 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 Active Problem Type 2 diabetes mellitus with complication E11.8 Active Problem Arthralgia of temporomandibular joint 524.62 Active Problem Nontoxic uninodular goiter 241.0 Active Problem Postsurgical hypothyroidism 244.0 Active Problem ZOSTAVAX DX V05.8 Active Assessment Type 2 diabetes mellitus with other diabetic neurological complication E11.49 Active Problem Unspecified disorders of bursae and tendons in shoulder region 726.10 Active Problem Coronary atherosclerosis of unspecified type of vessel, [place] or graft 414.00 Active Problem 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
--- OUTSIDE RECORDS SUMMARY | 2017-05-06 20:50 | XMS REPORT ---
Author Author NADYA DOUGHERTY [facility] Address [address] [place] [address] Care Team Providers Care Bilingual Operator Name Role Phone NADYA DOUGHERTY Unavailable PROBLEMS Type Condition ICD9-CM Code FNH20-EV Code Onset Dates Condition Status SNOMED Code Problem Pain in joint, ankle and foot 719.47 Active 001954314 Problem Need for prophylactic vaccination and inoculation, Influenza V04.81 Active 153883164 Problem Unspecified hypertrophic and atrophic condition of skin 701.9 Active 383094511 Problem Depressive disorder, not elsewhere classified 311 Active 98211798 Problem Personal history of tobacco use, presenting hazards to health V15.82 Active 6064247076450 Problem Pain in joint, pelvic region and thigh 719.45 Active 684265965 Problem Neoplasm of uncertain behavior, site unspecified 238.9 Active 033807227 Problem Esophageal reflux 530.81 Active 926259623 Problem Hallux valgus (acquired) 735.0 Active 39273804 Problem Type 2 diabetes mellitus with other diabetic neurological complication E11.49 Active 381294270 Problem Cough 786.2 Active 50123214 Problem Neuritis due to diabetes mellitus E11.41 Active 503949222 Problem Unspecified disorders of bursae and tendons in shoulder region 726.10 Active 58052861 Problem Hyperlipidemia, unspecified hyperlipidemia E78.5 Active 31668173 Problem Type 2 diabetes mellitus with complication E11.8 Active 62134589 Problem Postoperative hypothyroidism E89.0 Active 45606492 Problem Type I diabetes mellitus with peripheral circulatory disorder E10.51 Active 24508441 Problem DM neuro manif type II E11.49 Active 27067625 Problem ZOSTAVAX DX V05.8 Active 39403084 Problem Nontoxic uninodular goiter 241.0 Active 520587998 Problem Coronary atherosclerosis of unspecified type of vessel, [place] or graft 414.00 Active 20267875 Problem 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 176335960 Assessment 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 Jun, Active 763943345 Problem Diabetes E11.9 Active 12034132 Assessment Tobacco abuse Z72.0 Jun, Active 337730819 Problem 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 Active 2614675 Assessment Pain of left foot M79.672 Jun, Active 07318265 Problem Cervicalgia M54.2 Active 80070701 Assessment Pain in right foot M79.671 Jun, Active 31888777 Problem Retinopathy H35.00 Active 564578087 Problem Lesion of ulnar nerve 354.2 Active 836428978 Problem Lesion of plantar nerve 355.6 Active 679456832 Problem 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 Active 84174443 Problem Nontoxic multinodular goiter 241.1 Active 36232333 Problem Pain in soft tissues of limb 729.5 Active 20199114 Problem Atherosclerosis of [place] arteries of the extremities, unspecified 440.20 Active 461903468011512 Problem Nausea with vomiting 787.01 Active 06872936 Problem Unspecified hereditary and idiopathic peripheral neuropathy 356.9 Active 536663048 Problem Arthralgia of temporomandibular joint 524.62 Active 80586836 Problem Diabetes 250.00 Active 21481923 Problem Postsurgical hypothyroidism 244.0 Active 72646173 Problem 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 Unknown Non Drug Allergy Jun, Unknown SOCIAL HISTORY No smoking Hx information available PLAN OF CARE VITAL SIGNS Height 64 in 2016-07-21 Weight 174.3 lbs 2016-07-21 Heart Rate 88 bpm 2016-07-21 Respiratory Rate 16 2016-07-21 BMI 29.92 kg/m2 2016-07-21 Blood pressure systolic 128 mmHg 2016-07-21 Blood pressure diastolic 64 mmHg 2016-07-21 MEDICATIONS Medication Instructions Dosage Frequency Start Date End Date Duration Status Lipitor 20 mg take 1 tablet by Oral route 1 time per day per Dr [place] Active Angelia Contour Test ... In Vitro 2 times a day test blood sugar 12h Active Fish Oil 500 mg 2 Tablet by Oral route 1 time per day Active Potassium 99 MG Orally three times a day with meals 2 tablet Active Neurontin 600 MG 1-2 tablet by Oral route 3 times per day Take 1 tab in AM , 1 tab in afternoon, and 2 tabs at HS. Active Plavix 75 MG Orally Once a day 1 tablet 24h Active Chantix Starting Month P[place]o 0.5 MG X 11 & 1 MG X 42 as directed Jun, Active Acyclovir 200 MG TAKE ONE CAPSULE BY MOUTH DAILY 90 Active Magnesium 400 MG Orally Twice a day 1 capsule with a meal 12h Active Invokana 100 MG Orally Once a day 1 tablet 24h 30 day(s) Active Actos 30 MG Orally Once a day 1 tablet 24h Active Cymbalta 60 MG TAKE ONE TABLET BY MOUTH DAILY 90 Active Omeprazole 20 MG TAKE ONE CAPSULE BY MOUTH TWICE DAILY BEFORE A MEAL 30 Active Lancet Devices Lancets test blood sugar 12h 30 days Active Quinapril HCl 20 MG TAKE ONE TABLET BY MOUTH DAILY 90 Active MetFORMIN HCl ER 500 MG Orally 2 times a day 2 tablet with evening meal 12h 30 Active Levothyroxine Sodium 125 MCG TAKE ONE TABLET BY MOUTH ONCE DAILY (WILL NEED LABS BEFORE FURTHER REFILLS) 90 Active Glimepiride 4 MG Orally 2 times a day 1 tablets 12h 30 Active RESULTS Name Result Date Reference Range A1C (IN HOUSE) 2016-07-21 A1C IN HOUSE 7.3 4.3 - 5.6 % Previous A1c 7.9 Lot 0642 Exp date TSH W/ FREE T4 2016-07-21 TSH 1.210 0.450-4.500 T4,Free(Direct) 1.65 0.82-1.77 PROCEDURES Procedure Date Ordered Related Diagnosis Body Site GLYCATED HEMOGLOBIN TEST Jul 21, 2016 ASSAY THYROID STIM HORMONE Jul 21, 2016 Office Visit, Est Pt., Level 3 Jul 21, 2016 ASSAY OF FREE THYROXINE Jul 21, 2016 VENIPUNCT, ROUTINE* Jul 21, 2016 IMMUNIZATIONS No Known Immunizations
--- OUTSIDE RECORDS SUMMARY | 2017-05-06 20:51 | XMS REPORT ---
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
--- OUTSIDE RECORDS SUMMARY | 2017-05-06 20:51 | XMS REPORT ---
Author Author EMANI MARIA [facility] eClinicalWorks Address Unknown Phone Unavailable Care Team Providers Care Mobile Heavy Equipment Mechanic Name Role Phone EMANI MARIA CP Unavailable Allergies No Known Allergies Problems Problem Type Condition Code Onset Dates Condition Status Assessment 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 Active Assessment Onychomycosis B35.1 Active Problem Coronary atherosclerosis of unspecified type of vessel, [place] or graft 414.00 Active Problem Arthralgia of temporomandibular joint 524.62 Active Problem Postsurgical hypothyroidism 244.0 Active Problem Cough 786.2 Active Problem Pain in soft tissues of limb 729.5 Active Problem Unspecified disorders of bursae and tendons in shoulder region 726.10 Active Problem Nausea with vomiting 787.01 Active Problem 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 Problem ZOSTAVAX DX V05.8 Active Problem Nontoxic uninodular goiter 241.0 Active Problem Diabetes 250.00 Active Problem Chronic cholecystitis 575.11 Active Problem Need for prophylactic vaccination and inoculation, Influenza V04.81 Active Problem 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 Active Problem 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 Active Problem Lesion of ulnar nerve 354.2 Active Problem Unspecified hereditary and idiopathic peripheral neuropathy 356.9 Active Problem Atherosclerosis of [place] arteries of the extremities, unspecified 440.20 Active Problem Nontoxic multinodular goiter 241.1 Active Problem Lesion of plantar nerve 355.6 Active Problem Unspecified hypertrophic and atrophic condition of skin 701.9 Active Problem Personal history of tobacco use, presenting hazards to health V15.82 Active Problem Pain in joint, ankle and foot 719.47 Active Problem Depressive disorder, not elsewhere classified 311 Active Problem Esophageal reflux 530.81 Active Problem Hallux valgus (acquired) 735.0 Active Problem Pain in joint, pelvic region and thigh 719.45 Active Problem Neoplasm of uncertain behavior, site unspecified 238.9 Active Medications No Known Medications Procedures Procedure Coding System Code Date Office Visit, Est Pt., Level 3 CPT-4 57180 Jun 01, 2015 DEBRIDE NAIL, 1-5 CPT-4 48574 Jun 01, 2015 Vital Signs Date/Time: Jun 01, 2015 Blood Pressure Diastolic 64 mmHg Blood Pressure Systolic 112 mmHg Height 64 in Results Name Result Date Reference Range Unit Abnormality Flag DEBRIDE NAIL 1-5 Summary Purpose eClinicalWorks Submission
--- OUTSIDE RECORDS SUMMARY | 2017-05-06 20:51 | XMS REPORT ---
Author Author NADYA DOUGHERTY Organization eClinicalWorks Address Unknown Phone Unavailable Care Team Providers Care Commercial Installer Name Role Phone NADYA DOUGHERTY CP Unavailable Allergies No Known Allergies Problems Problem Type Condition Code Onset Dates Condition Status Problem Coronary atherosclerosis of unspecified type of vessel, [place] or graft 414.00 Active Problem Postsurgical hypothyroidism 244.0 Active Problem Arthralgia of temporomandibular joint 524.62 Active Problem Pain in soft tissues of limb 729.5 Active Problem Nausea with vomiting 787.01 Active Problem Lesion of ulnar nerve 354.2 Active Problem 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 Active Problem Need for prophylactic vaccination and inoculation, Influenza V04.81 Active Problem Atherosclerosis of [place] arteries of the extremities, unspecified 440.20 Active Problem Pain in joint, ankle and foot 719.47 Active Problem Unspecified hereditary and idiopathic peripheral neuropathy 356.9 Active Problem Depressive disorder, not elsewhere classified 311 Active Problem Lesion of plantar nerve 355.6 Active Problem Chronic cholecystitis 575.11 Active Problem Nontoxic multinodular goiter 241.1 Active Problem 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 Active Problem Type 2 diabetes mellitus with complication E11.8 Active Problem Pain in joint, pelvic region and thigh 719.45 Active Problem Personal history of tobacco use, presenting hazards to health V15.82 Active Problem Diabetes E11.9 Active Problem Unspecified hypertrophic and atrophic condition of skin 701.9 Active Problem 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 Active Problem Diabetes 250.00 Active Problem Postoperative hypothyroidism E89.0 Active Problem Hyperlipidemia, unspecified hyperlipidemia E78.5 Active Problem Hallux valgus (acquired) 735.0 Active Problem Cough 786.2 Active Problem Neoplasm of uncertain behavior, site unspecified 238.9 Active Problem Esophageal reflux 530.81 Active Problem Nontoxic uninodular goiter 241.0 Active Problem ZOSTAVAX DX V05.8 Active Problem Unspecified disorders of bursae and tendons in shoulder region 726.10 Active Problem 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
--- OUTSIDE RECORDS SUMMARY | 2017-05-06 20:51 | XMS REPORT ---
Author Author NADYA DOUGHERTY Organization eClinicalWorks Address Unknown Phone Unavailable Care Team Providers Care Logging Rafter Laborer Name Role Phone NADYA DOUGHERTY CP Unavailable Allergies No Known Allergies Problems Problem Type Condition ICD-9 Code Onset Dates Condition Status Problem Coronary atherosclerosis of unspecified type of vessel, [place] or graft 414.00 Active Problem Arthralgia of [...] with vomiting 787.01 Active Problem Atherosclerosis of [place] arteries of the extremities, unspecified 440.20 Active [...] Instructions Start Date End Date Status Dosage Actos [facility] [address]-01 30 MG Orally Once a day Apr 10, 2015 1 tablet Results No Known Results Summary Purpose eClinicalWorks Submission
--- OUTSIDE RECORDS SUMMARY | 2017-05-06 20:51 | XMS REPORT ---
Author Author NADYA DOUGHERTY Organization eClinicalWorks Address Unknown Phone Unavailable Care Team Providers Care Insurance Healthcare Representative Name Role Phone NADYA DOUGHERTY CP Unavailable Allergies, Adverse Reactions, Alerts Substance Reaction Event Type N.K.D.A. 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 Active Problem Need for prophylactic vaccination and inoculation, Influenza V04.81 Active Problem Atherosclerosis of [place] arteries of the extremities, unspecified 440.20 Active [...] use, presenting hazards to health V15.82 Active Assessment Alopecia L65.9 Active Problem Diabetes E11.9 Active Problem Unspecified hypertrophic and atrophic condition of skin 701.9 Active Problem 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 Active Problem Diabetes 250.00 Active Problem Postoperative hypothyroidism E89.0 Active Problem Hyperlipidemia, unspecified hyperlipidemia E78.5 Active Assessment Hyperlipidemia, unspecified hyperlipidemia E78.5 Active Problem Hallux valgus (acquired) 735.0 Active Assessment Encounter for immunization Z23 Active Problem Cough 786.2 Active Assessment Type 2 diabetes mellitus with complication E11.8 Active Problem Neoplasm of uncertain behavior, site unspecified 238.9 Active Assessment Postoperative hypothyroidism E89.0 Active Problem Esophageal reflux 530.81 Active Assessment Beau's lines L60.4 Active Problem Nontoxic uninodular goiter 241.0 Active Assessment Arthralgia of right hip M25.551 Active Problem ZOSTAVAX DX V05.8 Active Problem Unspecified disorders of bursae and tendons in shoulder region 726.10 Active Problem 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 Medications Medication Code System Code Instructions Start Date End Date Status Dosage Test strips [facility] 0 1 Contour Apr 20, 2015 as directed Lipitor [facility] [address]-50 20 mg Sep 11, 2014 take 1 tablet by Oral route 1 time per day per Dr Vallejo Omeprazole [facility] 15886106677 20 MG TAKE ONE CAPSULE BY MOUTH TWICE DAILY BEFORE A MEAL Levothyroxine Sodium [facility] 80359468573 125 MCG TAKE ONE TABLET BY MOUTH ONCE DAILY (WILL NEED LABS BEFORE FURTHER REFILLS) Cymbalta [facility] 89297723381 60 MG TAKE ONE TABLET BY MOUTH DAILY Quinapril HCl [facility] 54346778626 20 MG TAKE ONE TABLET BY MOUTH DAILY Neurontin [facility] [address]-92 600 mg 1 TAB orally 3 times a day November 01, 2014 1-2 tablet by Oral route 3 times per day Take 1 tab in AM, 1 tab in afternoon, and 2 tabs at HS. Fish Oil [facility] [address]-66 500 mg Sep 11, 2014 2 Tablet by Oral route 1 time per day Meloxicam [facility] 01841770287 7.5 MG TAKE ONE TABLET BY MOUTH TWICE DAILY Acyclovir [facility] 31735940308 200 MG TAKE ONE CAPSULE BY MOUTH DAILY Magnesium [facility] 96693-[address]51 400 MG Orally Twice a day 1 capsule with a meal Xigduo XR [facility] [address]-44 5-1000 MG Orally 2 times a day Jul 23, 2015 1 tablet MetFORMIN HCl ER [facility] [address]-02 500 MG Orally 2 times a day March 08, 2015 2 tablet with evening meal Glimepiride [facility] [address]-23 4 MG Orally 2 times a day February 20, 2015 1 tablets Potassium [facility] [address]-09 99 MG Orally three times a day with meals 2 tablet Procedures Procedure Coding System Code Date MICROALBUMIN, SEMIQUANT CPT-4 28412 Jul 23, 2015 Office Visit, Est Pt., Level 3 CPT-4 51198 Jul 23, 2015 LIPID PANEL CPT-4 17305 Jul 23, 2015 ASSAY THYROID STIM HORMONE CPT-4 45858 Jul 23, 2015 GLYCATED HEMOGLOBIN TEST CPT-4 35208 Jul 23, 2015 SINGLE IMMUNIZATION ADMIN CPT-4 06070 Jul 23, 2015 PCV 13 CPT-4 93875 Jul 23, 2015 IMMUNIZATION ADMIN, EACH ADD (please include units) CPT-4 52339 Jul 23, 2015 ASSAY OF MAGNESIUM CPT-4 07054 Jul 23, 2015 COMPREHEN METABOLIC PANEL CPT-4 66894 Jul 23, 2015 FLUARIX QUAD (3 & UP)-MT DIGITAL MEDIA-2014 CPT-4 61350 Jul 23, 2015 VENIPUNCT, ROUTINE* CPT-4 49349 Jul 23, 2015 Vital Signs Date/Time: Jul 23, 2015 Temperature 98.0 F Weight 177 lbs Height 64 in BMI 30.38 Index Blood Pressure Diastolic 62 mmHg Blood Pressure Systolic 120 mmHg Cardiac Monitoring Heart Rate 78 bpm Results Name Result Date Reference Range Unit Abnormality Flag ROUTINE VENIPUNCTURE A1C (IN HOUSE) ----A1C IN HOUSE 7.1 20150723 4.30 - 5.6 % ----Previous A1c 9.3 [id number] ----Lot # [id number] ----Exp date 20150723 MICROALBUMIN, URINE (IN HOUSE) ----CRE 100mg/dL 20150723 ----ALB 80mg/L [id number] ----Control Normal [id number] ----Control Abnormal [id number] ----A:C (IN HOUSE) 30-300mg/g [id number] ----Clarity clear 20150723 ----Color yellow 20150723 ----Lot # [id number] ----Exp date [id number] ----MICROALBUMIN Abnormal 20150723 Immunizations Vaccine Administration Date PCV 13 Jul 23, 2015 FLUARIX QUAD (3 & UP)-GSK-2014Jul 23, 2015 Summary Purpose eClinicalWorks Submission
--- OUTSIDE RECORDS SUMMARY | 2017-05-06 20:51 | XMS REPORT ---
Author Author NADYA DOUGHERTY Organization eClinicalWorks Address Unknown Phone Unavailable Care Team Providers Care Well Tender Name Role Phone NADYA DOUGHERTY CP Unavailable Allergies, Adverse Reactions, Alerts Substance Reaction Event Type N.K.D.A. Info Not Available Non Drug Allergy Problems Problem Type Condition ICD-9 Code Onset Dates Condition Status Assessment Neuropathy 355.9 Active Assessment Snoring 786.09 Active Assessment Diabetes 250.00 Active Problem Coronary atherosclerosis of unspecified type of vessel, [place] or graft 414.00 Active Problem Arthralgia of [...] with vomiting 787.01 Active Problem Atherosclerosis of [place] arteries of the extremities, unspecified 440.20 Active [...] Start Date End Date Status Dosage Actos [facility] [address]-07 30 MG Orally Once a day #30 samples given Apr 10, 2015 1 tablet Cymbalta [facility] 90912711793 60 MG TAKE ONE TABLET BY MOUTH DAILY Potassium [facility] [address]-89 99 MG Orally three times a day with meals 2 tablet Fish Oil [facility] [address]-27 500 mg Sep 11, 2014 2 Tablet by Oral route 1 time per day Magnesium [facility] [address]23 400 MG Orally Twice a day 1 capsule with a meal Acyclovir [facility] 40247727376 200 MG TAKE ONE CAPSULE BY MOUTH DAILY Neurontin [facility] [address]-31 600 mg 1 TAB orally 3 times a day November 01, 2014 1-2 tablet by Oral route 3 times per day Take 1 tab in AM, 1 tab in afternoon, and 2 tabs at HS. Omeprazole [facility] [address]-05 20 mg Aug 28, 2014 take 1 capsule by Oral route before a meal 2 times per day levothyroxine [facility] 0 125 mcg Sep 18, 2014 1 tablet by Oral route 1 time per day Will need labs before further refills Lipitor [facility] [address]-46 20 mg Sep 11, 2014 take 1 tablet by Oral route 1 time per day per Dr Valljeo MetFORMIN HCl ER [facility] [address]-22 500 MG Orally 2 times a day March 08, 2015 2 tablet with evening meal Glimepiride [facility] [address]-80 4 MG Orally 2 times a day February 20, 2015 1 tablets Quinapril HCl [facility] 77366596278 20 MG TAKE ONE TABLET BY MOUTH DAILY Procedures Procedure Coding System Code Date Office Visit, Est Pt., Level 3 CPT-4 65880 Apr 10, 2015 GLYCATED HEMOGLOBIN TEST CPT-4 41257 Apr 10, 2015 Vital Signs Date/Time: Apr 10, 2015 Temperature 97.6 F Weight 164.3 lbs Height 64 in BMI 28.20 Index Blood Pressure Diastolic 58 mmHg Blood Pressure Systolic 106 mmHg Cardiac Monitoring Heart Rate 84 bpm Results Name Result Date Reference Range Unit Abnormality Flag A1C (IN HOUSE) Summary Purpose eClinicalWorks Submission
--- OUTSIDE RECORDS SUMMARY | 2017-05-06 20:52 | XMS REPORT ---
Author Author NADYA DOUGHERTY Organization eClinicalWorks Address Unknown Phone Unavailable Care Team Providers Care Teletypesetter Monitor Name Role Phone NADYA DOUGHERTY CP Unavailable Allergies No Known Allergies Problems Problem Type Condition ICD-9 Code Onset Dates Condition Status Problem Coronary atherosclerosis of unspecified type of vessel, [place] or graft 414.00 Active Problem Arthralgia of [...] with vomiting 787.01 Active Problem Atherosclerosis of [place] arteries of the extremities, unspecified 440.20 Active [...]
--- OUTSIDE RECORDS SUMMARY | 2017-05-06 20:52 | XMS REPORT ---
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 Problem Hallux valgus (acquired) 735.0 Active Problem Cough 786.2 Active Problem Atherosclerosis of [place] arteries of the extremities, unspecified 440.20 Active Problem Unspecified hereditary and idiopathic peripheral neuropathy 356.9 Active Problem Nontoxic uninodular goiter 241.0 Active Problem ZOSTAVAX DX V05.8 Active Medications Medication Code System Code Instructions Start Date End Date Status Dosage Trulicity [facility] [address]-24 0.75 MG/0.5ML Subcutaneous 6 sample pens given Aug 15, 2015 0.5 ml Meloxicam [facility] 94805170225 7.5 MG TAKE ONE TABLET BY MOUTH TWICE DAILY Lipitor [facility] [address]-13 20 mg Sep 11, 2014 take 1 tablet by Oral route 1 time per day per Dr Vallejo Omeprazole [facility] 82015701869 20 MG TAKE ONE CAPSULE BY MOUTH TWICE DAILY BEFORE A MEAL Fish Oil [facility] [address]-48 500 mg Sep 11, 2014 2 Tablet by Oral route 1 time per day Acyclovir [facility] 91053625082 200 MG TAKE ONE CAPSULE BY MOUTH DAILY Neurontin [facility] [address]-53 600 mg 1 TAB orally 3 times a day November 01, 2014 1-2 tablet by Oral route 3 times per day Take 1 tab in AM, 1 tab in afternoon, and 2 tabs at HS. Potassium [facility] [address]-40 99 MG Orally three times a day with meals 2 tablet Cymbalta [facility] 48018436549 60 MG TAKE ONE TABLET BY MOUTH DAILY Levothyroxine Sodium [facility] 05070736185 125 MCG TAKE ONE TABLET BY MOUTH ONCE DAILY (WILL NEED LABS BEFORE FURTHER REFILLS) Test strips [facility] 0 1 Contour Apr 20, 2015 as directed MetFORMIN HCl ER [facility] [address]-36 500 MG Orally 2 times a day March 08, 2015 2 tablet with evening meal Magnesium [facility] [address]774 400 MG Orally Twice a day 1 capsule with a meal Quinapril HCl [facility] 76041436241 20 MG TAKE ONE TABLET BY MOUTH DAILY Glimepiride [facility] [address]-29 4 MG Orally 2 times a day February 20, 2015 1 tablets Procedures Procedure Coding System Code Date Office Visit, Est Pt., Level 3 CPT-4 53787 Aug 15, 2015 Vital Signs Date/Time: Aug 15, 2015 Temperature 98.7 F Weight 178.4 lbs Height 64 in BMI 30.62 Index Blood Pressure Diastolic 56 mmHg Blood Pressure Systolic 112 mmHg Cardiac Monitoring Heart Rate 84 bpm Results No Known Results Summary Purpose eClinicalWorks Submission
--- OUTSIDE RECORDS SUMMARY | 2017-05-06 20:52 | XMS REPORT ---
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 Active 074994016 Problem Type I diabetes mellitus with peripheral circulatory disorder E10.51 Active 49557232 Problem Retinopathy H35.00 Active 673438439 Problem Vaginal burning N94.9 Active 456476997 Problem Dysuria R30.0 Active 99886990 Problem Type 2 diabetes mellitus with other diabetic neurological complication E11.49 Active 831899294 Problem Postoperative hypothyroidism E89.0 Active 95145305 Problem History of stress test Z92.89 Active 542362331 Problem Type 2 diabetes mellitus with complication E11.8 Active 34754408 Problem 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 Active 179674013 Problem Hyperlipidemia, unspecified hyperlipidemia E78.5 Active 04921206 ALLERGIES Substance Reaction Event Type Date Status N.K.D.A. Unknown Non Drug Allergy Aug, Unknown SOCIAL HISTORY No smoking Hx information available PLAN OF CARE Activity Details Follow Up prn Reason: VITAL SIGNS Height 64 in 2016-08-26 Weight 177.1 lbs 2016-08-26 Temperature 97.7 degrees Fahrenheit 2016-08-26 Heart Rate 84 bpm 2016-08-26 Respiratory Rate 18 2016-08-26 BMI 30.40 kg/m2 2016-08-26 Blood pressure systolic 130 mmHg 2016-08-26 Blood pressure diastolic 62 mmHg 2016-08-26 MEDICATIONS Medication Instructions Dosage Frequency Start Date End Date Duration Status Lancet Devices Lancets test blood sugar 12h 30 days Active Neurontin 600 MG 1 tab in AM, 1 tab in afternoon, and 2 tabs at HS. Active Potassium 99 MG Orally 2 times a day 2 tablet 12h Active Magnesium 400 MG Orally Twice a day 1 capsule with a meal 12h Active Actos 30 MG Orally Once a day 1 tablet 24h Active Acyclovir 200 MG TAKE ONE CAPSULE BY MOUTH DAILY 90 Active Cymbalta 60 MG TAKE ONE TABLET BY MOUTH DAILY 90 Active Lipitor 20 mg take 1 tablet by Oral route 1 time per day per Dr Vallejo Active MetFORMIN HCl ER 500 MG Orally 2 times a day 2 tablet with evening meal 12h 30 Active Angelia Contour Test ... In Vitro 2 times a day test blood sugar 12h Active Plavix 75 MG Orally Once a day 1 tablet 24h Active Omeprazole 20 MG TAKE ONE CAPSULE BY MOUTH TWICE DAILY BEFORE A MEAL 30 Active Fish Oil 500 mg 2 Tablet by Oral route 1 time per day Active Levothyroxine Sodium 125 MCG TAKE ONE TABLET BY MOUTH ONCE DAILY (WILL NEED LABS BEFORE FURTHER REFILLS) 90 Active Invokana 100 MG Orally Once a day 1 tablet 24h 30 day(s) Active Quinapril HCl 20 MG TAKE ONE TABLET BY MOUTH DAILY 90 Active Glimepiride 4 MG Orally 2 times a day 1 tablets 12h 30 Active RESULTS No Results PROCEDURES Procedure Date Ordered Related Diagnosis Body Site Office Visit, Est Pt., Level 3 Aug 26, 2016 FLUARIX QUAD P-FREE 3 AND UP .50 2015Aug 26, 2016 SINGLE IMMUNIZATION ADMIN Aug 26, 2016 IMMUNIZATIONS Vaccine Route Administration Date Status FLUARIX QUAD P-FREE 3 AND UP .50 2015 IM Intramuscular Aug 26, 2016 Administered
--- OUTSIDE RECORDS SUMMARY | 2017-05-06 20:52 | XMS REPORT ---
Author Author NADYA DOUGHERTY Organization [employer] Address Unknown Phone Unavailable Care Team Providers Care Die Set Up Worker Name Role Phone NADYA DOUGHERTY CP Unavailable [...] Coronary atherosclerosis of unspecified type of vessel, quinault or graft 414.00 Active Problem 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 Problem Lesion of plantar nerve 355.6 Active Problem Nontoxic multinodular goiter 241.1 Active Problem Atherosclerosis of quinault arteries of the extremities, unspecified 440.20 Active Problem Unspecified hereditary and idiopathic peripheral neuropathy 356.9 Active Medications Medication Code System Code Instructions Start Date End Date Status Dosage Lipitor [facility] [address]-20 20 mg Sep 11, 2014 take 1 tablet by Oral route 1 time per day per Dr Vallejo Fish Oil [facility] [address]-28 500 mg Sep 11, 2014 2 Tablet by Oral route 1 time per day Magnesium [facility] [address]93-[address]498 400 MG Orally Twice a day 1 capsule with a meal Acyclovir [facility] 74658504188 200 MG TAKE ONE CAPSULE BY MOUTH DAILY Actos [facility] [address]-35 30 MG Orally Once a day November 21, 2015 1 tablet Levothyroxine Sodium [facility] 11683211571 125 MCG TAKE ONE TABLET BY MOUTH ONCE DAILY (WILL NEED LABS BEFORE FURTHER REFILLS) Omeprazole [facility] 42601398812 20 MG TAKE ONE CAPSULE BY MOUTH TWICE DAILY BEFORE A MEAL Lancet Devices ND 0 Lancets 2 times a day November 20, 2015 test blood sugar Glimepiride [facility] 59818691648 4 MG Orally 2 times a day 1 tablets Invokana [facility] [address]-02 100 MG Orally Once a day December 26, 2015 1 tablet MetFORMIN HCl ER [facility] 47118282894 500 MG Orally 2 times a day 2 tablet with evening meal Quinapril HCl [facility] 89781586188 20 MG TAKE ONE TABLET BY MOUTH DAILY Cymbalta [facility] 58389384139 60 MG TAKE ONE TABLET BY MOUTH DAILY Meloxicam [facility] 88758067902 7.5 MG TAKE ONE TABLET BY MOUTH TWICE DAILY Potassium [facility] [address]-73 99 MG Orally three times a day with meals 2 tablet Angelia Contour Test ND 0 ... In Vitro 2 times a day November 30, 2015 test blood sugar Neurontin [facility] [address]-60 600 MG 1 TAB orally 3 times a day November 01, 2014 1-2 tablet by Oral route 3 times per day Take 1 tab in AM, 1 tab in afternoon, and 2 tabs at HS. Procedures Procedure Coding System Code Date MICROALBUMIN, SEMIQUANT CPT-4 83979 March 04, 2016 Office Visit, Est Pt., Level 3 CPT-4 01057 March 04, 2016 GLYCATED HEMOGLOBIN TEST CPT-4 72073 March 04, 2016 Vital Signs Date/Time: March 04, 2016 Cardiac Monitoring Heart Rate 76 bpm Weight 173.6 lbs Height 64 in BMI 29.80 Index Blood Pressure Diastolic 58 mmHg Blood Pressure Systolic 110 mmHg Results No Known Results Summary Purpose [employer] Submission
--- OUTSIDE RECORDS SUMMARY | 2017-05-06 20:52 | XMS REPORT ---
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 Active Problem Arthralgia of temporomandibular joint 524.62 Active Problem Pain in soft tissues of limb 729.5 Active Problem Nausea with vomiting 787.01 Active Problem Lesion of ulnar nerve 354.2 Active Problem 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
--- NOTE | 2017-05-06 20:53 | ED Lower Extremity ---
General Stated Complaint: RT FOOT INJ Source: patient Exam Limitations: no limitations History of Present Illness Time seen by provider: 20:51 Initial Comments To ER with reports of right foot pain after dropping a DVD player on the dorsum of the right first metatarsal distally about one hour prior to arrival. Onset: just prior to arrival Severity: moderate Pain/Injury Location: right foot Method of Injury: direct blow Modifying Factors: Worse With Movement Allergies and Home Medications Allergies Coded Allergies: lovastatin (Unverified Allergy, Unknown, 09/03/11) Home Medications Acyclovir 200 Mg Capsule, 200 MG PO DAILY@1800, (Reported) Atorvastatin Calcium 20 Mg Tablet, 20 MG PO HS, (Reported) Calcium Carb & Citrate/Vit D3 1 Each Tablet.er, 1 TAB PO DAILY@1800, (Reported) Canagliflozin 100 Mg Tablet, 100 MG PO DAILY, (Reported) Cetirizine HCl 10 Mg Tablet, 10 MG PO HS, (Reported) Duloxetine Hcl 60 Mg Capsule.dr, 60 MG PO HS, (Reported) Gabapentin 600 Mg Tab, 600 MG PO DAILY@0700,1800, (Reported) Gabapentin 600 Mg Tab, 1,200 MG PO HS, (Reported) TAKES 2 (600 MG) TABLETS Glimepiride 4 Mg Tablet, 4 MG PO DAILY@0700,1800, (Reported) Levothyroxine Sodium 125 Mcg Tablet, 125 MCG PO DAILY, (Reported) Magnesium Oxide 400 Mg Tablet, 400 MG PO DAILY@1800, (Reported) Multivitamin 1 Each Tablet, 1 TAB PO DAILY, (Reported) [place]-3 Fatty Acids/Fish Oil 1 Each Capsule, 1,200 MG PO DAILY, (Reported) Omeprazole 20 Mg Capsule.dr, 20 MG PO DAILY@0700,1800, (Reported) Pioglitazone HCl 30 Mg Tablet, 30 MG PO DAILY, (Reported) Potassium 99 Mg Tablet, 99 MG PO DAILY@0700,1800, (Reported) Quinapril Hcl 20 Mg Tab, 20 MG PO DAILY, (Reported) Ticagrelor 90 Mg Tablet, 90 MG PO BID, (Reported) Constitutional: see HPI EENTM: see HPI Respiratory: no symptoms reported Cardiovascular: no symptoms reported Genitourinary: no symptoms reported Musculoskeletal: see HPI Skin: no symptoms reported Psychiatric/Neurological: No Symptoms Reported Past Vbdzdlz-Zsypgw-Xpjrvz Hx Patient Social History Type Used: Cigarettes Recent Foreign Travel: No Contact w/Someone Who Travel: No Recent Hopitalizations: No Immunizations Up To Date Tetanus Booster (TDap): Less than 5yrs PED Vaccines UTD: Yes Date of Pneumonia Vaccine: May 01, 2015 Date of Influenza Vaccine: Sep 01, 2016 Seasonal Allergies Seasonal Allergies: Yes Surgeries History of Surgeries: Yes (thyroidectomy 09/30/12,GB out, heart stent) Surgeries: Appendectomy, Gallbladder Respiratory History of Respiratory Disorde: Yes (NEVER DIAGNOSED) Respiratory Disorders: Chronic Bronchitis, COPD Cardiovascular History of Cardiac Disorders: Yes Neurological History of Neurological Disord: Yes Reproductive System Hx Reproductive Disorders: Yes Sexually Transmitted Disease: Yes (UNSURE OF NAME/HERPES) HIV/AIDS: No Female Reproductive Disorders: Denies SURVEYING [employer] History: Menopausal Genitourinary History of Genitourinary Disor: No Gastrointestinal History of Gastrointestinal Di: Yes Gastrointestinal Disorders: Gastroesophageal Reflux, Chronic Constipation Musculoskeletal History of Musculoskeletal Dis: Yes (DDD IN NECK/APPIAH'S NEUROMA-RIGHT FOOT) Musculoskeletal Disorders: Degenerate Disk Disease, Arthritis Endocrine History of Endocrine Disorders: Yes (thyroidectomy) Endocrine Disorders: Diabetes, Non-Insulin dep HEENT History of HEENT Disorders: Yes HEENT Disorders: Cataract Loss of Vision: Denies Hearing Impairment: Denies Cancer History of Cancer: No Psychosocial History of Psychiatric Problem: Yes Behavioral Health Disorders: Depression Integumentary History of Skin or Integumenta: No Blood Transfusions History of Blood Disorders: No Adverse Reaction to a Blood Tr: No Family Medical History Family Medial History: Diabetes mellitus 19 MOTHER G8 BROTHER FH: lung cancer 19 MOTHER Hypertension G8 BROTHER Myocardial infarction 19 FATHER Physical Exam Vital Signs Capillary Refill : General Appearance: WD/WN, no apparent distress HEENT: PERRL/EOMI, normal ENT inspection Neck: non-tender, full range of motion Respiratory: normal breath sounds, no respiratory distress, no accessory muscle use Gastrointestinal: normal bowel sounds, non tender Hips: bilateral hip non-tender, bilateral hip normal inspection, bilateral hip normal range of motion Legs: bilateral leg non-tender, bilateral leg normal inspection, bilateral leg normal range of motion Knees: bilateral knee non-tender, bilateral knee normal inspection, bilateral knee normal range of motion Ankles: bilateral ankle non-tender, bilateral ankle normal inspection, bilateral ankle normal range of motion Feet: right foot pain, right foot other (no swelling or ecchymosis or erythema. There is a very superficial abrasion over the area of pain. This is over the dorsal aspect of the right first metatarsal distally.) Neurologic/Psychiatric: alert, normal mood/affect, oriented x 3 Skin: normal color, warm/dry Progress/Results/Core Measures Results/Orders My Orders Orders - BELEN RAYMOND APRN Foot, Right, 3 View (05/06/17 20:50) Departure Impression Impression: Primary Impression: Contusion Disposition: HOME, SELF-CARE Condition: Stable Departure-Patient Inst. Decision time for Depature: 20:52 Referrals: NICOLAS IRENE DO (PCP) Primary Care Physician NADYA DOUGHERTY (Family) Primary Care Physician Patient Instructions: Contusion (DC) Add. Discharge Instructions: 1. Ice to the foot 2. Tylenol and Motrin 3. Return to ER for any concerns BELEN RAYMOND APRN May 06, 2017 20:52
--- NOTE | 2017-05-06 21:19 | Diagnostic Imaging Report ---
INDICATION: Injury to right foot. AP, oblique, and lateral views of the right foot are obtained. FINDINGS: There is plantar calcaneal spurring. There is no acute fracture or acute bony abnormality. There are diffuse degenerative changes throughout the interphalangeal joints. There is degenerative change of the first MTP joint. Radiopaque density overlying the first toe on the frontal and oblique views is presumably due to the patient's overlying nail, correlate with physical exam. IMPRESSION: Degenerative findings. No definite fracture or acute bony abnormality. Radiopaque density overlying the first toe is probably related to the patient's toenail, correlate with clinical exam. Dictated by: Dictated on workstation # [id number]
[2017-05-06 21:26] VITALS: BP 113/70
== END 2017-05-06 21:26 | disposition home or self-care (01) ==
LOC: EDUNIT# 20:43 → ER 20:45
DX: S90.31XA Contusion of right foot, initial encounter (principal); J44.9 Chronic obstructive pulmonary disease, unspecified; K21.9 Gastro-esophageal reflux disease without esophagitis; E11.9 Type 2 diabetes mellitus without complications; Z82.49 Family history of ischemic heart disease and other diseases of the circulatory system; Z80.1 Family history of malignant neoplasm of trachea, bronchus and lung; Z87.19 Personal history of other diseases of the digestive system; Z79.84 Long term (current) use of oral hypoglycemic drugs; Z90.49 Acquired absence of other specified parts of digestive tract; Z95.5 Presence of coronary angioplasty implant and graft; W20.8XXA Other cause of strike by thrown, projected or falling object, initial encounter
CPT/HCPCS: 73630; 99283

== ENCOUNTER → 2017-11-02 | Outpatient (CLI) | payer OTHER ==
--- NOTE | 2017-11-03 14:24 | Diagnostic Imaging Report ---
EXAMINATION: Digital mammogram bilateral screening with CAD. INDICATION: Screening. COMPARISON: 06/13/2014 and 01/06/2011. PERSONAL HISTORY: At this time, there are no current complaints. FINDINGS: The fibroglandular tissue in both breasts is heterogeneously dense. This does limit the sensitivity of this exam. Overall, there does not appear to have been any significant change when compared to the prior study. No primary or secondary sign of malignancy is noted. IMPRESSION: 1. There is no evidence for malignancy. 2. The patient should have her annual bilateral screening mammogram on schedule in October 2018. ACR BI-RADS Category 1: Negative. Result letter will be mailed to the patient. Note: At least 10% of breast cancer is not imaged by mammography. Dictated by: Dictated on workstation # [id number]
== END ==
LOC: RAD 15:04
PROVIDERS: ATTEND Nurse Practitioner Community Health
DX: Z12.31 Encounter for screening mammogram for malignant neoplasm of breast (principal)
CPT/HCPCS: 77067

== ENCOUNTER → 2018-05-28 | Outpatient (CLI) | payer OTHER ==
[~2018-05-28] MED LIST changes: +METF-397 PO; -METF500T4 PO
== END ==
LOC: CARD 09:31
PROVIDERS: ATTEND Internal Medicine Cardiovascular Disease
DX: I25.10 Atherosclerotic heart disease of native coronary artery without angina pectoris (principal); E11.9 Type 2 diabetes mellitus without complications; I10 Essential (primary) hypertension; E78.2 Mixed hyperlipidemia; I34.0 Nonrheumatic mitral (valve) insufficiency; Z72.0 Tobacco use; Z86.39 Personal history of other endocrine, nutritional and metabolic disease
CPT/HCPCS: 93306

== ENCOUNTER → 2018-11-22 | Outpatient (CLI) | payer OTHER ==
[~2018-11-22] VITALS: Ht 162.6 cm; Wt 80.3 kg
[~2018-11-22] MED LIST changes: +ASPI-586 PO; +CATHETER FLUSH 10 ML SYR IV PRN; +LISI-556 PO; +METF-478 PO; +REGADENOSON 0.4 MG/5 ML SYR (LEXISCAN) IV ONE; +RIVA10TA PO
[2018-11-22 09:33] VITALS: BP 121/49
[2018-11-22 09:35] VITALS: BP 132/52
--- NOTE | 2018-11-22 14:48 | STRESS TEST ---
DATE OF SERVICE: 11/22/2018 LEXISCAN MYOVIEW STRESS TEST REPORT REFERRING PHYSICIAN: [facility]. Baseline heart rate is 76. Baseline blood pressure 118/60. Baseline EKG is sinus rhythm with no ischemic changes. In summary, the patient was injected with 10.78 mCi of technetium-99 Myoview and the resting images were obtained. Then, the patient received 0.4 mg of Lexiscan followed by 29.4 mCi of technetium-99 Myoview. Throughout the test, there were no EKG changes. The resting and stress images were reviewed and compared in the short axis, horizontal long axis, and vertical long axis views. Review of the images showed decreased uptake involving the mid to apical inferior wall and inferoseptum with no significant reversibility. SSS is 9, SDS 2, TID value 1.05. On the gated images, the left ventricle appeared to be in normal size with normal contractility. Calculated ejection fraction 69%. CONCLUSION: 1. The patient tolerated Lexiscan well. 2. Fixed defect involving the mid to apical inferior wall and inferoseptum with no significant ischemia or infarction. 3. Normal left ventricular size with normal contractility, inferior wall is enrique normally. Calculated ejection fraction 69%. Job ID: [id number] DocumentID: [id number] Dictated Date: 11/22/2018 12:13:53 Optical Model Maker And Tester Date: 11/22/2018 14:47:20 Dictated By: JESSIE ESPINAL MD
== END ==
LOC: CARD 07:46
PROVIDERS: ATTEND Internal Medicine Cardiovascular Disease
DX: I25.10 Atherosclerotic heart disease of native coronary artery without angina pectoris (principal); E11.9 Type 2 diabetes mellitus without complications; I10 Essential (primary) hypertension; K21.9 Gastro-esophageal reflux disease without esophagitis
CPT/HCPCS: 78452; 93017

== ENCOUNTER 2018-11-24 10:27 | Day surgery (SDC) | payer OTHER ==
[2018-11-24] VITALS (14 sets, daily range): BP systolic 76–127; BP diastolic 43–77
[~2018-11-24] VITALS: Ht 160 cm; Wt 78.1 kg
[~2018-11-24 10:27] MED LIST changes: -ASPI-586 PO; -CATHETER FLUSH 10 ML SYR IV PRN; -LISI-556 PO; -METF-478 PO; -REGADENOSON 0.4 MG/5 ML SYR (LEXISCAN) IV ONE; -RIVA10TA PO
[2018-11-24] MEDS ORDERED: LIDOCAINE 1% INJ 20 ML 20 ML VIAL ONE (10:41)
[2018-11-24] MEDS ORDERED: HEParin 1000 UNIT/ML (10ML VIAL) FOR BOLUS ONE (10:41)
[2018-11-24] MEDS ORDERED: NS IV 1000 ML 3,000 ML ONE (10:41)
[2018-11-24] MEDS: NS IV 1000 ML 1,000 ML IV SCH ×4 (10:50→23:31)
[2018-11-24 11:07] LABS: HEMOGLOBIN 13.2 G/DL (11.5-16.0); MEAN PLATELET VOLUME 8.6 FL (7.4-10.4); RED CELL DISTRIBUTION WIDTH 13.3 % (10.0-14.5); WHITE BLOOD COUNT 9.4 10^3/uL (4.3-11.0)
[2018-11-24 11:18] LABS: INR 0.9 (0.8-1.4); PROTHROMBIN TIME PATIENT 12.4 SEC (12.2-14.7)
[2018-11-24] MEDS ORDERED: LISI-556 PO (11:18)
[2018-11-24] MEDS ORDERED: ASPI-586 PO (11:18)
[2018-11-24] MEDS ORDERED: METF-478 PO (11:18)
--- NOTE | 2018-11-24 11:19 | NUR ---
PATIENT BROUGHT ALL HER MEDICATION BOTTLES IN. SHE STATED HOW SHE TOOK HER OTC AND WHEN SHE LAST TOOK ALL OF HER MEDICATIONS.
[2018-11-24 11:25] LABS: ALBUMIN 4.2 GM/DL (3.2-4.5); BILIRUBIN,TOTAL 0.2 MG/DL (0.1-1.0); CALCIUM 10.2 MG/DL (8.5-10.1); CREATININE SERUM 1.14 MG/DL (0.60-1.30); POTASSIUM 4.1 MMOL/L (3.6-5.0); TOTAL PROTEIN 7.7 GM/DL (6.4-8.2)
--- NOTE | 2018-11-24 11:33 | Diagnostic Imaging Report ---
INDICATION: Coronary artery disease and tobaccoism. TIME OF EXAM: 11:13 a.m. Comparison is made with prior chest from 11/05/2016. Heart size is normal. Lungs do appear to be hyperinflated consistent with COPD. No infiltrate, effusion or pneumothorax is detected. IMPRESSION: COPD. No acute cardiopulmonary process is detected. Dictated by: Dictated on workstation # [id number]
[2018-11-24 11:40] LABS: BILIRUBIN,URINE NEGATIVE (NEGATIVE); CLARITY,URINE SLIGHTLY CLOUDY; COLOR,URINE YELLOW; GLUCOSE, URINE (UA) 3+ (NEGATIVE); KETONES,URINE NEGATIVE (NEGATIVE); LEUKOCYTE ESTERASE ,URINE 2+ (NEGATIVE); NITRITE,URINE NEGATIVE (NEGATIVE); PH,URINE 5 (5-9); PROTEIN,URINE 2+ (NEGATIVE); UROBILINOGEN,URINE NORMAL (NORMAL)
--- NOTE | 2018-11-24 11:53 | Cardiac Procedure Note-CS/ASA ---
Pre-Procedure Note Pre-Op Procedure Note H&P Reviewed The H&P was reviewed, patient examined and no changes noted. Date H&P Reviewed: Nov 24, 2018 Time H&P Reviewed: 11:53 Conscious Sedation Pre-Proced Time 11:53 ASA Score 3 For ASA 3 and 4: Consider anesthesia and medical clearance. Also, for patients with a history of failed moderate sedation consider anesthesia. Airway Lungs Heart ASA score ASA 1: a normal healthy patient ASA 2: a patient with a mild systemic disease (mid diabetes, controlled hypertension, obesity x ASA 3: a patient with a severe systemic disease that limits activity (angina , COPD, prior Myocardial infarction) ASA 4: a patient with an incapacitating disease that is a constant threat to life (CHF, renal failure) ASA 5: a moribund patient not expected to survive 24 hrs. (ruptured aneurysm) ASA 6: a declared brain- patient whose organs are being harvested. For emergent operations, add the letter E after the classification Mallampati Classification Grade 3 Sedation Plan Analgesia, Amnesia, Plan communicated to team members, Discussed options with patient/fam, Discussed risks with patient/fam The patient is an appropriate candidate to undergo the planned procedure, sedation, and anesthesia. The patient immediately re-assessed prior to indication. JESSIE ESPINAL MD Nov 24, 2018 11:53
[2018-11-24] MEDS ORDERED: fentaNYL INJECTION 100 MCG/2 ML AMP ONE (11:58)
[2018-11-24] MEDS ORDERED: MIDAZOLAM 5 MG/5 ML (VERSED) VIAL ONE (11:58)
[2018-11-24 12:02] LABS: BACTERIA,URINE FEW /HPF
[2018-11-24] MEDS ORDERED: NITRO DRIP 25000 MCG/D5W 250 ML IV ONE (12:33)
[2018-11-24] MEDS ORDERED: ASPIRIN 325 MG (5 GR) TABLET ONE (13:25)
[2018-11-24] MEDS ORDERED: CLOPIDOGREL 300 MG (PLAVIX) TABLET PO ONE (13:25)
[2018-11-24] MEDS ORDERED: PATIENT MAY USE OWN MEDS, ALL PO SCH (13:30)
--- NOTE | 2018-11-24 13:31 | Peripheral Report ---
Peripheral Report Physician (s)/Radio Officer (s) Physician JESSIE ESPINAL MD Pre-Procedure Diagnosis Pre-Procedure Diagnosis: Peripheral arterial disease Post-Procedure Note Procedure Start Date: Nov 24, 2018 Name of Procedure: Abdominal aortogram Bilateral runoff Balloon angioplasty to the right SFA Findings/Procedure Note PROCEDURE NOTE: 58 years old lady with history of peripheral arterial disease, hypertension hyperlipidemia, had multiple interventions in the past, has been having increasing claudication, had an abnormal SERGIO, she was scheduled for peripheral angiogram with left groin access due to the significant deterioration of the right leg. After explaining the procedure to the patient, all pros and cons were explained , all questions were answered. The patient signed the consent and then she was placed on the cardiac catheterization laboratory. The patient was placed on the cardiac catheterization laboratory. Groin was prepped SL fashion local anesthesia was used. Sheath placed in the left femoral , runoff to the left lower extremity was done then removed catheter was used to cross over and torque wire was advanced then a straight catheter was placed in the right common femoral artery and angiogram was done to the right leg at that point patient was given 5000 units of heparin, the straight catheter was removed and 6 Swazi, 45 centimeter sheath was placed then I advanced the Storq wire across the total occlusion of the right SFA and advanced distally to the popliteal artery angiograms confirm the wire to be in a true lumen. I proceeded with balloon angioplasty using [place] 5200 with multiple inflation, significant improvement, there was one resistant lesion and I used [place] 5 x 120 mm , didn't angioplasty to the popliteal artery that has severe stenosis with significant improvement, at the overlap area in the mid SFA there was some residual stenosis and I did high pressure balloon angioplasty up to 30 ananth, results showed significant improvement still have some residual stenosis that does not respond fully to the high pressure. At the end of the procedure the sheath was exchanged again in 2 short 6 Swazi sheath and a pigtail catheter was advanced abdominal aortogram abdominal aortogram was done. Sheath was sutured in place FINDINGS: Abdominal aortogram showed hypertensive changes in the abdominal aorta, no dissection or aneurysm, origin of the renal arteries appeared normal, SMA and LITZY are normal, the aortic bifurcation and the iliac arteries are normal. Left lower extremity: Severe stenosis at the left SFA at multiple segment, there is a stent in the proximal portion. Right lower extremity: Total occlusion of the right SFA, successful balloon angioplasty using [place] 5205 time 120 with high pressure inflation up to 30 ananth for in-stent restenosis with improvement of the severe stenosis down to moderate. Did not resolve fully. There was a lesion in the popliteal artery that appeared severe stenosis and balloon angioplasty so significant improvement. CONCLUSIONS: 1. Total occlusion of the right SFA with convex intervention using balloon angioplasty with [place] 5200 and 5 x 120 with high pressure up to 30 ananth for in -stent restenosis. The distal portion of the artery/popliteal artery has severe stenosis with successful balloon angioplasty using local pressure. 2. Severe stenosis at multiple segment at the left SFA with old stent in the SFA. Will require intervention at a later point 3. Hypertensive changes in the abdominal aorta DISCUSSION AND RECOMMENDATIONS: Patient was continued on aspirin and I added Xarelto 2.5 mg twice daily. Educated on smoking cessation Anesthesia Type: Conscious Sedation Estimated blood loss (mL): 25 ml Contrast Amount: 55 ml Total Radiation Dose: 133 mGy Post-Procedure Diagnosis Post-operative diagnosis: Peripheral arterial disease Claudication Hypertension Hyperlipidemia JESSIE ESPINAL MD Nov 24, 2018 13:30
[2018-11-24] MEDS ORDERED: NON-FORMULARY MEDICATION 1 EA EA (Glimepiride 4 MG) PO SCH (18:00)
[2018-11-24] MEDS ORDERED: GABAPENTIN 600 MG (NEURONTIN) TAB PO SCH ×2 (18:00→21:00)
[2018-11-24] MEDS ORDERED: MAGNESIUM OXIDE (MAG-OX)400 MG TAB PO SCH (18:00)
[2018-11-24] MEDS ORDERED: OMEPRAZOLE 20 MG (PriLOSEC) CAP NON-FORMULARY PO SCH (18:00)
[2018-11-24] MEDS ORDERED: ACYCLOVIR 400 MG TABLET (ZOVIRAX) PO SCH (18:00)
[2018-11-24] MEDS ORDERED: ACYCLOVIR 200 MG PO SCH (18:00)
[2018-11-24] MEDS: PANTOPRAZOLE 20 MG TABLET (PROTONIX) PO SCH (18:15)
[2018-11-24] MEDS: GABAPENTIN 600 MG (NEURONTIN) TAB PO SCH (18:15)
[2018-11-24] MEDS: GLIMEPIRIDE 4 MG (AMARYL) TAB PO SCH (18:15)
[2018-11-24] MEDS ORDERED: ATORVASTATIN 20 MG (LIPITOR) TABLET PO SCH (21:00)
[2018-11-24] MEDS ORDERED: DULoxetine 30 MG (CYMBALTA) CAP PO SCH (21:00)
[2018-11-24] MEDS ORDERED: lisINopril 5 MG (PRINIVIL) TABLET PO SCH (21:00)
[2018-11-24] MEDS: RIVAROXABAN 2.5 MG TABLET (XARELTO) PO SCH (21:08)
[2018-11-25 03:05] VITALS: BP 114/81
[2018-11-25 04:06] LABS: HEMOGLOBIN 11.5 G/DL (11.5-16.0); MEAN PLATELET VOLUME 8.7 FL (7.4-10.4); RED CELL DISTRIBUTION WIDTH 13.1 % (10.0-14.5); WHITE BLOOD COUNT 7.9 10^3/uL (4.3-11.0)
[2018-11-25 04:35] LABS: BUN/CREATININE RATIO 27; CALCIUM 8.5 MG/DL (8.5-10.1); CARBON DIOXIDE 22 MMOL/L (21-32); CHLORIDE 111 MMOL/L (98-107); CREATININE SERUM 0.88 MG/DL (0.60-1.30); GFR ESTIMATED > 60; GLUCOSE 158 MG/DL (70-105); POTASSIUM 4.1 MMOL/L (3.6-5.0); SODIUM 140 MMOL/L (135-145)
[2018-11-25] MEDS: NS IV 1000 ML 1,000 ML IV SCH ×2 (06:05→09:37)
[2018-11-25] MEDS: PANTOPRAZOLE 20 MG TABLET (PROTONIX) PO SCH (06:05)
[2018-11-25] MEDS: GABAPENTIN 600 MG (NEURONTIN) TAB PO SCH (06:06)
[2018-11-25] MEDS: GLIMEPIRIDE 4 MG (AMARYL) TAB PO SCH (06:06)
[2018-11-25] MEDS ORDERED: OMEGA 3 (FISH OIL) 1000 MG CAP PO SCH (07:00)
[2018-11-25] MEDS ORDERED: PIOGLITAZONE 30MG (ACTOS) TAB PO SCH (07:00)
[2018-11-25] MEDS ORDERED: MULTIVIT W/MINERALS TAB (THERAGRAN M) PO SCH (07:00)
--- NOTE | 2018-11-25 07:33 | Cardiology Progress Note ---
Subjective Date Seen by Provider: Nov 25, 2018 Time Seen by Provider: 07:32 Subjective/Events-last exam patient is laying down in bed, feeling better, her leg is feeling better Review of Systems General: No Chills, No Night Sweats, No Fatigue, No Malaise, No Appetite, No Other HEENT: No Head Aches, No Visual Changes, No Eye Pain, No Ear Pain, No Dysphasia , No Sinus Congestion, No Post Nasal Drip, No Sore Throat, No Other Pulmonary: No Dyspnea, No Cough, No Pleuritic Chest Pain, No Other Cardiovascular: No: Chest Pain, Palpitations, Orthopnea, Paroxysmal Noc. Dyspnea, Edema, Lt Headedness, Other Objective-Cardiology Exam Last Set of Vital Signs Vital Signs 11/24/18 11/25/18 11/25/18 23:12 03:05 04:05 Temp 97.7 Pulse 70 Resp 18 B/P (MAP) 114/81 (92) Pulse Ox 95 O2 Delivery Room Air O2 Flow Rate 2.00 Capillary Refill : Less Than 3 Seconds I&O Intake and Output 11/25/18 00:00 Intake Total 1200 ml Output Total 700 ml Balance 500 ml Intake Oral 200 ml IV Total 1000 ml Output Urine Total 700 ml # Voids 1 General: Alert, Oriented X3, Cooperative HEENT: Atraumatic, PERRLA Neck: Supple, No JVD, No Thyromegaly Lungs: Clear to Auscultation, Normal Air Movement Heart: Regular Rate, Normal S1, Normal S2, No Murmurs Abdomen: Normal Bowel Sounds, Soft, No Tenderness, No Hepatosplenomegaly, No Masses Extremities: No Clubbing, No Cyanosis, No Edema, Normal Pulses, No Tenderness/ Swelling Skin: No Rashes, No Breakdown, No Significant Lesion Neuro: Normal Gait, Normal Speech, Strength at 5/5 X4 Ext, Normal Tone, Sensation Intact Psych/Mental Status: Mental Status NL, Mood NL Results Lab Laboratory Tests 11/24/18 11:00 11/25/18 03:55 A/P-Cardiology Admission Diagnosis Claudication Peripheral arterial disease Hypertension Hyperlipidemia Assessment/Plan Claudication, status post angiogram, results discussed below, planning to schedule intervention on the left lower extremity in 10 days 1. Total occlusion of the right SFA with convex intervention using balloon angioplasty with [place] 5200 and 5 x 120 with high pressure up to 30 ananth for in -stent restenosis. The distal portion of the artery/popliteal artery has severe stenosis with successful balloon angioplasty using local pressure. 2. Severe stenosis at multiple segment at the left SFA with old stent in the SFA. Will require intervention at a later point 3. Hypertensive changes in the abdominal aorta Peripheral arterial disease as described above Hypertension, restart home medication, monitor blood pressure Hyperlipidemia, Rizwan*Lipitor, monitor next Coronary artery dise Clinical Quality Measures DVT/VTE Risk/Contraindication: Risk Factor Score Per Nursin RFS Level Per Nursing on Admit: 2=Moderate JESSIE ESPINAL MD Nov 25, 2018 07:33
[2018-11-25] MEDS ORDERED: ATOR20TA66 PO (07:35)
[2018-11-25] MEDS ORDERED: RIVA10T PO (07:35)
--- NOTE | 2018-11-25 07:36 | Discharge Inst-Post CATH ---
Discharge Inst-CATH/EP Post Cardiac Cath/EP D/C Inst Follow Up/Plan Appointment with Dr. Vallejo's office next week Hold metformin for 48 hours Cut down lisinopril to half tablet daily CARDIAC CATH DISCHARGE INSTRUCTIONS *Hold Metformin for 48 hours post heart cath. ACTIVITY * Go Home directly and rest. * Limit activity of the leg (or wrist if it was used) for 7 days including aerobics, swimming, jogging, bicycling, etc. * Restrict stair-climbing for 7 days if possible, if not, climb up with your non -cath leg, then bring together on the same step. * Avoid lifting, pushing, pulling or excessive movement of the affected extremity for 7 days. * Customary sexual activity may be resumed after 2 days-use caution not to use a position that strains or causes pain to the affected extremity. * No driving for 24 hours. * NO SMOKING. * Avoid straining for bowel movements for 7 days. * Gentle walking on level ground is allowed. * Returning to work will depend on the type of procedure and the results. Your doctor will discuss this with you. CALL YOUR DOCTOR FOR ANY OF THE FOLLOWING: *If bleeding from the puncture site occurs- Apply gentle pressure to site with clean cloth and call your doctor or EMS. * If a knot or lump forms under the skin, increases in size, or causes pain. * If bruising appears to be worsening or moving further down your leg instead of disappearing. * Temperature above 101 F. CARE OF YOUR GROIN INCISION; * Bruising or purple discoloration of the skin near the puncture site is common. * You may shower only, no bathtub bathing for 5 days. Be careful to avoid slipping as your leg may feel stiff. * If a closure device was used on your femoral artery, please see the attached guide regarding care of the device and your leg. * Leave the dressing on, until removed by office staff. CARE OF YOUR WRIST INCISION; * Bruising or purple discoloration of the skin near the puncture site is common. * You may shower. * DO NOT submerge wrist. * Leave dressing on, until removed by office staff.. JESSIE VALLEJO MD Nov 25, 2018 07:36
[2018-11-25 08:00] VITALS: BP 111/46
[2018-11-25] MEDS: RIVAROXABAN 2.5 MG TABLET (XARELTO) PO SCH (08:42)
[2018-11-25] MEDS ORDERED: NON-FORMULARY MEDICATION 1 EA EA (Multivitamin (Multi-Vitamin Daily) 1 TAB) PO SCH (09:00)
[2018-11-25] MEDS ORDERED: NON-FORMULARY MEDICATION 1 EA EA (Omega-3 Fatty Acids/Fish Oil (Fish Oil 1,200 mg Softgel) PO SCH (09:00)
[2018-11-25] MEDS ORDERED: NON-FORMULARY MEDICATION 1 EA EA (Canagliflozin (Invokana) 100 MG) PO SCH (09:00)
[2018-11-25] MEDS ORDERED: PIOGLITAZONE HCL 30 MG PO SCH (09:00)
[2018-11-25] MEDS ORDERED: CLOPIDOGREL 75 MG (PLAVIX) TABLET PO SCH (09:00)
[2018-11-25] MEDS ORDERED: ASPIRIN E.C. 81 MG (ECOTRIN) TAB PO SCH (09:00)
[2018-11-25 10:44] VITALS: BP 111/46
== END 2018-11-25 10:40 | disposition home or self-care (01) ==
LOC: CATH 10:27 → ICU 13:42 → CATH 11-25 10:40
PROVIDERS: ATTEND Internal Medicine Cardiovascular Disease
DX: I73.9 Peripheral vascular disease, unspecified (principal); I10 Essential (primary) hypertension; E78.5 Hyperlipidemia, unspecified; I25.10 Atherosclerotic heart disease of native coronary artery without angina pectoris; E11.40 Type 2 diabetes mellitus with diabetic neuropathy, unspecified; K21.9 Gastro-esophageal reflux disease without esophagitis; J44.9 Chronic obstructive pulmonary disease, unspecified; E03.9 Hypothyroidism, unspecified; F17.210 Nicotine dependence, cigarettes, uncomplicated; I65.23 Occlusion and stenosis of bilateral carotid arteries
CPT/HCPCS: 36415; 71045; 75630; 80048; 80053; 80061; 81000; 85027; 85610; 85730; 87081; 87088; 93005

== ENCOUNTER 2018-12-15 08:02 | Day surgery (SDC) | payer OTHER ==
[~2018-12-15] VITALS: Ht 162.6 cm; Wt 80.3 kg
[2018-12-15] VITALS (18 sets, daily range): BP systolic 90–133; BP diastolic 44–71
[~2018-12-15 08:02] MED LIST changes: +ASPI-586 PO; +LISI-556 PO; +METF-478 PO; +RIVA10T PO
[2018-12-15] MEDS ORDERED: HEParin 1000 UNIT/ML (10ML VIAL) FOR BOLUS ONE (08:07)
[2018-12-15] MEDS ORDERED: LIDOCAINE 1% INJ 20 ML 20 ML VIAL ONE (08:07)
[2018-12-15] MEDS ORDERED: NS IV 1000 ML 3,000 ML ONE (08:07)
[2018-12-15 08:45] LABS: HEMOGLOBIN 12.7 G/DL (11.5-16.0); MEAN PLATELET VOLUME 8.4 FL (7.4-10.4); RED CELL DISTRIBUTION WIDTH 13.1 % (10.0-14.5); WHITE BLOOD COUNT 8.2 10^3/uL (4.3-11.0)
--- NOTE | 2018-12-15 08:45 | Diagnostic Imaging Report ---
INDICATION: Preop for peripheral angiography. TIME OF EXAM: 08:33 a.m. Correlation is made with prior study from 11/24/2018. The heart size is normal. The pulmonary vascularity is unremarkable. The lungs are clear. No infiltrate, effusion or pneumothorax is detected. IMPRESSION: No acute cardiopulmonary process is detected. Dictated by: Dictated on workstation # [id number]
[2018-12-15 08:55] LABS: INR 0.9 (0.8-1.4); PROTHROMBIN TIME PATIENT 12.3 SEC (12.2-14.7)
[2018-12-15 08:56] LABS: BILIRUBIN,URINE NEGATIVE (NEGATIVE); CLARITY,URINE CLEAR; COLOR,URINE YELLOW; GLUCOSE, URINE (UA) 4+ (NEGATIVE); KETONES,URINE NEGATIVE (NEGATIVE); LEUKOCYTE ESTERASE ,URINE NEGATIVE (NEGATIVE); NITRITE,URINE NEGATIVE (NEGATIVE); PH,URINE 7 (5-9); PROTEIN,URINE 1+ (NEGATIVE); UROBILINOGEN,URINE NORMAL (NORMAL)
[2018-12-15 09:02] LABS: BACTERIA,URINE NEGATIVE /HPF
[2018-12-15 09:02] LABS: ALANINE AMINOTRANSFERASE 17 U/L (0-55); ALBUMIN 4.1 GM/DL (3.2-4.5); ALKALINE PHOSPHATASE 79 U/L (40-136); BILIRUBIN,TOTAL 0.3 MG/DL (0.1-1.0); BUN/CREATININE RATIO 20; CALCIUM 9.8 MG/DL (8.5-10.1); CARBON DIOXIDE 26 MMOL/L (21-32); CHLORIDE 105 MMOL/L (98-107); CREATININE SERUM 0.92 MG/DL (0.60-1.30); GFR ESTIMATED > 60; GLUCOSE 218 MG/DL (70-105); POTASSIUM 4.3 MMOL/L (3.6-5.0); SODIUM 140 MMOL/L (135-145); TOTAL PROTEIN 7.4 GM/DL (6.4-8.2)
[2018-12-15] MEDS ORDERED: NS IV 1000 ML 1,000 ML IV SCH (09:15)
[2018-12-15] MEDS ORDERED: MULT-178 PO (09:17)
[2018-12-15] MEDS ORDERED: MAGN500C15 PO (09:17)
[2018-12-15] MEDS ORDERED: RIVA2.5T5 PO (09:29)
[2018-12-15] MEDS ORDERED: METF500T8 PO (09:29)
[2018-12-15] MEDS ORDERED: QUIN20TA16 PO (09:29)
[2018-12-15] MEDS ORDERED: DULO60CA58 PO (09:29)
[2018-12-15] MEDS ORDERED: GBPN600T PO ×2 (09:29)
[2018-12-15] MEDS ORDERED: LEVO125T6 PO (09:29)
[2018-12-15] MEDS ORDERED: ATOR20TA49 PO (09:29)
--- NOTE | 2018-12-15 09:30 | NUR ---
WENT OVER THE PATIENTS MEDICATION BOTTLES WITH HER AND SHE VERIFIED HOW SHE TAKES THEM. SHE TAKES THE FOLLOWING DIFFERENTLY THAN PRESCRIBED: 11-02-18 GABAPENTIN 600MG #120 1 AM, 1 AFTERNOON, 2 HS (TAKES 1 AM AND 2 HS ONLY) 11-01-18 OMEPRAZOLE 20MG BID #60 (TAKES HS ONLY) XARELTO 2.5MG BID SAMPLES CYMBALTA 60MG PALS ACYCLOVIR 200MG DAILY (REPOSITORY, BOTTLE SHE HAS IS FROM 08-12-18 BUT STATES SHE HAS A NEW BOTTLE AT HOME) SHE IS PAST DUE FOR REFILL ON: 11-01-18 METFORMIN ER 500MG 2 BID #120 (GOT A SUPPLY FROM A FRIEND SHE TAKES WELL) PATIENT TAKES QUINAPRIL 20MG DAILY SHE STATES SHE HAD BEEN TAKING IT AND THE LISINOPRIL 5MG DAILY TOGETHER FOR AWHILE, SHE DID NOT REALIZE DR. ESPINAL'S OFFICE DID NOT HAVE THE QUINAPRIL ON THEIR LIST. FOR THE PAST WEEK OR SO SHE HAS STOPPED TAKING THE LISINOPRIL SO I DID NOT INCLUDE IT ON THE MED REC AT THIS TIME. SHE HAS ONLY BEEN TAKING THE QUINAPRIL BUT INTENDS TO DISCUSS WITH DR. ESPINAL TODAY. OTC MEDS: FISH OIL DAILY MTC DAILY CALCIUM + D DAILY ASPIRIN 81MG DAILY POTASSIUM BID MAG 500MG DAILY
[2018-12-15] MEDS ORDERED: fentaNYL INJECTION 100 MCG/2 ML AMP ONE ×2 (10:33→11:54)
[2018-12-15] MEDS ORDERED: MIDAZOLAM 5 MG/5 ML (VERSED) VIAL ONE (10:33)
--- NOTE | 2018-12-15 11:09 | Cardiac Procedure Note-CS/ASA ---
Pre-Procedure Note Pre-Op Procedure Note H&P Reviewed The H&P was reviewed, patient examined and no changes noted. Date H&P Reviewed: Dec 15, 2018 Time H&P Reviewed: 11:08 Conscious Sedation Pre-Proced Time 11:08 ASA Score 3 For ASA 3 and 4: Consider anesthesia and medical clearance. Also, for patients with a history of failed moderate sedation consider anesthesia. Airway Lungs Heart ASA score ASA 1: a normal healthy patient ASA 2: a patient with a mild systemic disease (mid diabetes, controlled hypertension, obesity x ASA 3: a patient with a severe systemic disease that limits activity (angina , COPD, prior Myocardial infarction) ASA 4: a patient with an incapacitating disease that is a constant threat to life (CHF, renal failure) ASA 5: a moribund patient not expected to survive 24 hrs. (ruptured aneurysm) ASA 6: a declared brain- patient whose organs are being harvested. For emergent operations, add the letter E after the classification Mallampati Classification Grade 3 Sedation Plan Analgesia, Amnesia, Plan communicated to team members, Discussed options with patient/fam, Discussed risks with patient/fam The patient is an appropriate candidate to undergo the planned procedure, sedation, and anesthesia. The patient immediately re-assessed prior to indication. JESSIE ESPINAL MD Dec 15, 2018 11:09
[2018-12-15] MEDS ORDERED: NITRO DRIP 25000 MCG/D5W 250 ML IV ONE (11:40)
[2018-12-15] MEDS ORDERED: ASPIRIN 325 MG (5 GR) TABLET ONE (12:14)
--- NOTE | 2018-12-15 12:24 | Peripheral Report ---
Peripheral Report Physician (s)/Feed In Worker (s) Physician JESSIE ESPINAL MD Pre-Procedure Diagnosis Pre-Procedure Diagnosis: Peripheral arterial disease Post-Procedure Note Procedure Start Date: Dec 15, 2018 Name of Procedure: Bilateral lower extremity runoff Second order Stent to the left SFA Findings/Procedure Note PROCEDURE NOTE: 58 years old lady with extensive peripheral arterial disease multiple intervention the past, had intervention of the right SFA after total occlusion with multiple balloon, still had residual disease, she has significant disease in the left lower extremity which was scheduled to be staged and reevaluation of the right leg. After explaining the procedure to the patient, all pros and cons were explained , all questions were answered. The patient signed the consent and then she was placed on the cardiac catheterization laboratory. The patient was placed on the cardiac catheterization laboratory. Groin was prepped SL fashion local anesthesia was used. Sheath placed in the right femoral artery, runoff to the right leg was done then I was able to cross over an exchange of sheaths into 6 Syrian long sheath advanced to the left SFA, angiogram was done then I advanced a stork wire and proceeded with balloon and 2 + after giving bolus of heparin, I used [place] 5 x 100 with multiple inflation through followed the artery, there was a small dissection with significant disease at the distal SFA, I proceeded with deployment of self expanding stent Innova 5 x 80 postdilated with 120 balloon with excellent results. The sheath was exchanged into short 6 Syrian sheath then a pigtail catheter was advanced up the aorta and abdominal aortogram with runoff to both legs was done showing excellent results. At the end of the procedure sheath was removed and Mynx deployed FINDINGS: 1. Right lower extremity: patent stent through followed the right SFA down to the popliteal with mild to moderate in-stent restenosis, good flow down to the foot. 2. Left lower extremity: Patent stent in the proximal left SFA with severe disease at multiple segment at the mid and distal SFA successful balloon angioplasty using 5 time 100 with multiple inflation through followed the SFA down to the popliteal then deployment of a distal stent with a self-expanding Innova 5 x 80 with excellent results 3. Abdominal aortogram: Mild atherosclerotic disease, good flow down to the trifurcation both legs post intervention CONCLUSIONS: 1. Successful balloon and to plasty and stent deployment to the distal left SFA with self-expanding Innova 5 x 80 stent with good results 2. Patent stent in the right SFA extending from the proximal SFA to the popliteal artery with mild to moderate in-stent restenosis 3. Mild atherosclerotic disease in the abdominal aorta DISCUSSION AND RECOMMENDATIONS: Continue to maximize medical therapy Anesthesia Type: Conscious Sedation Estimated blood loss (mL): 30 ml Contrast Amount: 90 ml Total Radiation Dose: 296 mGy Post-Procedure Diagnosis Post-operative diagnosis: Peripheral arterial disease Hypertension Hyperlipidemia Claudication JESSIE ESPINAL MD Dec 15, 2018 12:24
[2018-12-15] MEDS ORDERED: PATIENT MAY USE OWN MEDS, ALL PO SCH (14:30)
[2018-12-15] MEDS ORDERED: GLIMEPIRIDE 4 MG (AMARYL) TAB PO SCH (17:30)
[2018-12-15] MEDS ORDERED: OMEPRAZOLE 20 MG (PriLOSEC) CAP NON-FORMULARY PO SCH (18:00)
[2018-12-15] MEDS ORDERED: PANTOPRAZOLE 20 MG TABLET (PROTONIX) PO SCH (18:00)
[2018-12-15] MEDS: NS IV 1000 ML 1,000 ML IV SCH (18:28)
[2018-12-15] MEDS ORDERED: ACYCLOVIR 200 MG PO SCH (21:00)
[2018-12-15] MEDS ORDERED: NON-FORMULARY MEDICATION 1 EA EA (Aspirin (Aspir 81) 81 MG) PO SCH (21:00)
[2018-12-15] MEDS ORDERED: NON-FORMULARY MEDICATION 1 EA EA (Glimepiride 4 MG) PO SCH (21:00)
[2018-12-15] MEDS ORDERED: GABAPENTIN 600 MG (NEURONTIN) TAB PO SCH (21:00)
[2018-12-15] MEDS ORDERED: ATORVASTATIN 20 MG (LIPITOR) TABLET PO SCH (21:00)
[2018-12-15] MEDS ORDERED: ASPIRIN E.C. 81 MG (ECOTRIN) TAB PO SCH (21:00)
[2018-12-15] MEDS ORDERED: CYMBALTA 60 MG PO SCH (21:00)
[2018-12-15] MEDS ORDERED: ACYCLOVIR 200 MG CAPSULE PO SCH (21:00)
[2018-12-15] MEDS ORDERED: NON-FORMULARY MEDICATION 1 EA EA (Potassium 99 MG) PO SCH (21:00)
[2018-12-15] MEDS ORDERED: NON-FORMULARY MEDICATION 1 EA EA (Atorvastatin Calcium (Lipitor) 20 MG) PO SCH (21:00)
[2018-12-15] MEDS ORDERED: NON-FORMULARY MEDICATION 1 EA EA (Rivaroxaban (Xarelto) 2.5 MG) PO SCH (21:00)
[2018-12-15] MEDS ORDERED: RIVAROXABAN 2.5 MG TABLET (XARELTO) PO SCH (21:00)
[2018-12-15] MEDS ORDERED: NON-FORMULARY MEDICATION 1 EA EA (Duloxetine HCl 60 MG) PO SCH (21:00)
[2018-12-16] VITALS: BP 101/57
[2018-12-16 03:52] LABS: HEMOGLOBIN 11.7 G/DL (11.5-16.0); MEAN PLATELET VOLUME 8.8 FL (7.4-10.4); RED CELL DISTRIBUTION WIDTH 13.3 % (10.0-14.5); WHITE BLOOD COUNT 10.1 10^3/uL (4.3-11.0)
[2018-12-16 04:00] VITALS: BP 113/66
[2018-12-16 04:15] LABS: BUN/CREATININE RATIO 20; CALCIUM 9.3 MG/DL (8.5-10.1); CARBON DIOXIDE 22 MMOL/L (21-32); CHLORIDE 107 MMOL/L (98-107); CREATININE SERUM 0.88 MG/DL (0.60-1.30); GFR ESTIMATED > 60; GLUCOSE 167 MG/DL (70-105); POTASSIUM 4.3 MMOL/L (3.6-5.0); SODIUM 138 MMOL/L (135-145)
[2018-12-16] MEDS: NS IV 1000 ML 1,000 ML IV SCH (05:47)
[2018-12-16] MEDS ORDERED: LEVOTHYROXINE 125 MCG (LEVOTHROID) TABLET PO SCH (06:30)
[2018-12-16] MEDS ORDERED: GLIMEPIRIDE 4 MG (AMARYL) TAB PO SCH (07:00)
[2018-12-16] MEDS ORDERED: PIOGLITAZONE 30MG (ACTOS) TAB PO SCH (07:00)
[2018-12-16] MEDS ORDERED: MULTIVIT W/MINERALS TAB (THERAGRAN M) PO SCH (07:00)
[2018-12-16] MEDS ORDERED: INVOKANA 100 MG PO SCH (07:00)
[2018-12-16] MEDS ORDERED: METF500T8 PO (07:13)
--- NOTE | 2018-12-16 07:14 | Discharge Inst-Post CATH ---
Discharge Inst-CATH/EP Post Cardiac Cath/EP D/C Inst Follow Up/Plan Hold metformin for [address] Vallejo's office in 2-4 weeks <b>CARDIAC CATH/EP PROCEDURE DISCHARGE INSTRUCTIONS</b> Cardiac Rehab Please be expecting a follow up call from Cardiac Rehab within in one week. ACTIVITY * Go Home directly and rest. * Limit activity of the leg (or wrist if it was used) for 7 days including aerobics, swimming, jogging, bicycling, etc. * Restrict stair-climbing for 7 days if possible, if not, climb up with your non -cath leg, then bring together on the same step. * Avoid lifting, pushing, pulling or excessive movement of the affected extremity for 7 days. * Customary sexual activity may be resumed after 2 days-use caution not to use a position that strains or causes pain to the affected extremity. * No driving for 24 hours. * NO SMOKING. * Avoid straining for bowel movements for 7 days. * Gentle walking on level ground is allowed. * Returning to work will depend on the type of procedure and the results. Your doctor will discuss this with you. CALL YOUR DOCTOR FOR ANY OF THE FOLLOWING: *If bleeding from the puncture site occurs- Apply gentle pressure to site with clean cloth and call your doctor or EMS. * If a knot or lump forms under the skin, increases in size, or causes pain. * If bruising appears to be worsening or moving further down your leg instead of disappearing. * Temperature above 101 F. CARE OF YOUR GROIN INCISION; * Bruising or purple discoloration of the skin near the puncture site is common. * You may shower only, no bathtub bathing for 5 days. Be careful to avoid slipping as your leg may feel stiff. * If a closure device was used on your femoral artery, please see the attached guide regarding care of the device and your leg. * Leave dressing on FOR 24 hours. CARE OF YOUR WRIST INCISION; * Bruising or purple discoloration of the skin near the puncture site is common. * You may shower. * DO NOT submerge wrist. * Leave dressing on FOR 24 hours. JESSIE VALLEJO MD Dec 16, 2018 07:14
--- NOTE | 2018-12-16 07:17 | Cardiology Progress Note ---
Subjective Date Seen by Provider: Dec 16, 2018 Time Seen by Provider: 07:16 Subjective/Events-last exam patient is laying down in bed, feeling better. No complaint. Palpable pulse, groin is healing well Review of Systems General: No Chills, No Night Sweats, No Fatigue, No Malaise, No Appetite, No Other HEENT: No Head Aches, No Visual Changes, No Eye Pain, No Ear Pain, No Dysphasia , No Sinus Congestion, No Post Nasal Drip, No Sore Throat, No Other Pulmonary: No Dyspnea, No Cough, No Pleuritic Chest Pain, No Other Cardiovascular: No: Chest Pain, Palpitations, Orthopnea, Paroxysmal Noc. Dyspnea, Edema, Lt Headedness, Other Objective-Cardiology Exam Last Set of Vital Signs Vital Signs 12/16/18 04:00 Temp 97.5 Pulse 75 Resp 20 B/P (MAP) 113/66 (82) Pulse Ox 93 O2 Delivery Nasal Cannula O2 Flow Rate 2.00 Capillary Refill : Less Than 3 Seconds General: Alert, Oriented X3, Cooperative HEENT: Atraumatic, PERRLA Neck: Supple, No JVD, No Thyromegaly Lungs: Clear to Auscultation, Normal Air Movement Heart: Regular Rate, Normal S1, Normal S2, No Murmurs Abdomen: Normal Bowel Sounds, Soft, No Tenderness, No Hepatosplenomegaly, No Masses Extremities: No Clubbing, No Cyanosis, No Edema, Normal Pulses, No Tenderness/ Swelling Skin: No Rashes, No Breakdown, No Significant Lesion Neuro: Normal Gait, Normal Speech, Strength at 5/5 X4 Ext, Normal Tone, Sensation Intact Psych/Mental Status: Mental Status NL, Mood NL Results Lab Laboratory Tests 12/15/18 08:39 12/16/18 03:30 A/P-Cardiology Admission Diagnosis Peripheral arterial disease Claudication Hypertension Hyperlipidemia Diabetes mellitus Assessment/Plan Peripheral arterial disease status post balloon angioplasty and stenting to the left SFA Claudication, reporting improvement Hypertension, continue current medication Hyperlipidemia, continue current medication Diabetes mellitus, hold metformin JESSIE ESPINAL MD Dec 16, 2018 07:17
[2018-12-16 08:00] VITALS: BP 123/57
[2018-12-16] MEDS ORDERED: MAGNESIUM OXIDE (MAG-OX)400 MG TAB PO SCH (08:00)
[2018-12-16] MEDS ORDERED: OMEGA PO SCH (09:00)
[2018-12-16] MEDS ORDERED: PIOGLITAZONE HCL 30 MG PO SCH (09:00)
[2018-12-16] MEDS ORDERED: QUINAPRIL 20 MG (ACCUPRIL) TAB PO SCH (09:00)
[2018-12-16] MEDS ORDERED: MULTIVITAMIN PO SCH (09:00)
[2018-12-16] MEDS ORDERED: GABAPENTIN 600 MG (NEURONTIN) TAB PO SCH (09:00)
[2018-12-16] MEDS ORDERED: NON-FORMULARY MEDICATION 1 EA EA (Magnesium Oxide (Magnesium) 500 MG) PO SCH (09:00)
[2018-12-16] MEDS ORDERED: QUINAPRIL HCL 20 MG PO SCH (09:00)
[2018-12-16] MEDS ORDERED: OMEPRAZOLE 20 MG (PriLOSEC) CAP NON-FORMULARY PO SCH (18:00)
== END 2018-12-16 09:30 | disposition home or self-care (01) ==
LOC: CATH 08:02 → ICU 12:31 → CATH 12-16 09:30
PROVIDERS: ATTEND Internal Medicine Cardiovascular Disease
DX: I70.203 Unspecified atherosclerosis of native arteries of extremities, bilateral legs (principal); I10 Essential (primary) hypertension; E78.2 Mixed hyperlipidemia; I25.10 Atherosclerotic heart disease of native coronary artery without angina pectoris; E11.40 Type 2 diabetes mellitus with diabetic neuropathy, unspecified; K21.9 Gastro-esophageal reflux disease without esophagitis; F17.210 Nicotine dependence, cigarettes, uncomplicated; Z79.899 Other long term (current) drug therapy; Z79.82 Long term (current) use of aspirin; J44.9 Chronic obstructive pulmonary disease, unspecified; I65.23 Occlusion and stenosis of bilateral carotid arteries; E89.0 Postprocedural hypothyroidism; M19.91 Primary osteoarthritis, unspecified site
CPT/HCPCS: 36246; 36415; 37226; 71045; 75716; 80048; 80053; 81000; 85027; 85610; 85730; 87081

== ENCOUNTER → 2020-04-11 | Day surgery (SDC) | payer SELFPAY ==
[~2020-04-11] MED LIST changes: +ASPIRIN 325 MG (5 GR) TABLET ONE; +ATOR20TA49 PO; +CLOPIDOGREL 300 MG (PLAVIX) TABLET PO ONE; +DULO60CA59 PO; -GLIM4TAB PO; +GLIM4TAB5 PO; +HEParin (CATH LAB) 2,000 ML IV ONE; +HEParin 1000 UNIT/ML (10ML VIAL) FOR BOLUS ONE; +LIDOCAINE 1% INJ 20 ML 20 ML VIAL ONE; -MAGN400T6 PO; +MAGN400T8 PO; +MAGN500C15 PO; +METF-865 PO; +MIDAZOLAM 5 MG/5 ML (VERSED) VIAL ONE; +MULT-178 PO; +NS IV 1000 ML 1,000 ML ONE; +OMEP20CA18 PO; +QUIN20TA16 PO; +RIVA2.5T5 PO; +fentaNYL INJECTION 100 MCG/2 ML AMP ONE
--- NOTE | 2020-04-11 20:49 | OPERATIVE REPORT ---
DATE OF SERVICE: PERIPHERAL ANGIOGRAM REPORT BRIEF HISTORY: The patient has extensive peripheral arterial disease, multiple interventions in the past, has been having severe claudication, had an abnormal SERGIO and she was scheduled for peripheral angiogram and possible angioplasty. PROCEDURE NOTE: After explaining the procedure in length to the patient, all pros and cons were explained, all benefits and risks were explained, the patient signed a consent, then she was placed on the cardiac catheterization laboratory. Left groin was prepped in a sterile fashion. A 5-[place] sheath was placed in the left groin with difficulty, I exchanged it into 6-[place] sheath, then proceed with runoff of the left leg using the sheath. Then I advanced the rim catheter and crossed over using a long Storq wire. Over the Storq wire, I advanced a straight catheter to the proximal right SFA and did runoff to the right leg. The patient has severe aortic stenosis. She was given 4000 units of heparin. The catheter was removed, and the sheath was removed and exchanged into a 6-[place] 45 cm sheath, advanced across from the left groin to the right SFA. I advanced the Storq wire again; then proceeded with balloon angioplasty for severe in-stent restenosis at the mid and proximal right SFA with excellent results. After that, the sheath and the balloon were removed, and I advanced a pigtail catheter to the abdominal aorta, did abdominal aortogram on 2 stages up in the upper abdominal aorta, then at the bifurcation. Then, the left sheath was exchanged into short 6-[place] sheath and then it was removed and a Mynx device was placed. FINDINGS: 1. Anatomy: Abdominal aortogram showed mild atherosclerotic plaque in the abdominal aorta. Normal right and left renal arteries, normal SMA and LITZY, mild disease at the bifurcation in the right common iliac nonobstructive disease. 2. Right lower extremity runoff: The patient has severe stenosis within the stent in the mid SFA and proximal SFA. The distal portion has excellent flow. Successful balloon angioplasty using [place] 5 x 120 with multiple inflations at 8 atmospheres and 9 atmospheres pressures showing excellent results. 3. Left lower extremity runoff was done through the sheath showing a severe stenosis at multiple segment at the proximal and mid left SFA, good runoff below the trifurcation. CONCLUSION: 1. Severe stenosis at the right SFA in the mid and proximal most successful balloon angioplasty using [place] 5 x 100 with excellent results. Good flow down to the foot. 2. Severe stenosis at the left SFA at multiple segment, which will be planned for intervention using right groin access. 3. Normal abdominal aorta and renal artery, mild disease at the bifurcation. DISCUSSION AND RECOMMENDATION: The patient has been maintained on Xarelto. She was started on aspirin and Plavix, which will be continued for now in addition to the Xarelto, hold metformin for 48 hours. Planning to bring the patient back for right groin access with intervention on the left SFA. The patient was educated in length about smoking cessation. PROCEDURE TYPE: 1. Abdominal aortogram. 2. Bilateral runoff. 3. Second order. 4. Balloon angioplasty to the right SFA. FINAL DIAGNOSES: 1. Claudication. 2. Peripheral arterial disease. 3. Hypertension. 4. Hyperlipidemia. 5. Diabetes mellitus. Job ID: [id number] DocumentID: [id number] Dictated Date: 04/11/2020 10:05:37 [employer]pper Date: 04/11/2020 10:56:49 Dictated By: JESSIE ESPINAL MD
[2020-04-12 07:54] LABS: POTASSIUM 4.3 MMOL/L (3.6-5.0)
[2020-04-12 07:55] LABS: ALBUMIN 4.2 GM/DL (3.2-4.5); BILIRUBIN,TOTAL 0.3 MG/DL (0.1-1.0); CALCIUM 9.8 MG/DL (8.5-10.1); CREATININE SERUM 1.06 MG/DL (0.60-1.30); TOTAL PROTEIN 7.7 GM/DL (6.4-8.2)
[2020-04-12 07:56] LABS: HEMOGLOBIN 13.2 G/DL (11.5-16.0); WHITE BLOOD COUNT 9.3 10^3/uL (4.3-11.0)
[2020-04-12 07:57] LABS: RED CELL DISTRIBUTION WIDTH 13.4 % (10.0-14.5)
[2020-04-12 07:58] LABS: MEAN PLATELET VOLUME 8.8 FL (7.4-10.4)
[2020-04-12 08:00] LABS: PROTHROMBIN TIME PATIENT 13.3 SEC (12.2-14.7)
--- NOTE | 2020-04-12 10:43 | Diagnostic Imaging Report ---
EXAMINATION: Portable chest on 04/11 at 7:39 AM. IMPRESSION: Preop for peripheral angiography. No prior studies are available for comparison. The heart size is normal. The pulmonary vascularity is unremarkable. The lungs are clear. No infiltrate, effusion or pneumothorax is detected. Impression: No acute cardiopulmonary process is detected. Dictated by: Dictated on workstation # [id number]
--- NOTE | 2020-04-12 14:22 | NUR ---
I INTERVIEWED THE PT IN [facility] (DURING [email or web address] DOWN TIME) I COULD NOT COMPLETE THE MED REC AT THIS TIME DUE TO PT BEING DISCHARGED BUT HERE ARE THE FILL DATES FOR MEDICATIONS SHE IS NOW TAKIN08-26-2019 ACYCLOVIR 200MG #180/180DS 11-30-2019 LEVOTHYROXINE 125MCG #180/180DS 01-02-2020 CYMBALTA 60MG #90/90DS 01-26-2020 LISINOPRIL 5MG #90/180DS 01-26-2020 GABAPENTIN 600MG #120/60DS 02-06-2020 ACTOS 30MG #90/90DS 02-06-2020 METFORMIN ER 500MG #360/90DS 04-04-2020 INVOKANA 100MG #60/30DS- PT ALSO HAD A BOTTLE DATED 02-29-2020 #60 AND BOTH BOTH HAD AT LEAST THE TABLETS STILL IN THEM. PT IS ADAMANT SHE DOESNT MISS A DOSE 03-06-2020 ATORVASTATIN 20MG #90/90DS 03-10-2020 OMEPRAZOLE 20MG #60/30DS 04-04-2020 GLIMEPIRIDE 4MG #60/30DS 04-04-2020 XARELTO 2.5MG #60/30DS GABAPENTIN 600MG HAS DIRECTIONS OF 1 TAB BID AND 2 HS HOWEVER PT IS TAKING 1 TAB BID INVOKANA 100MG HAS DIRECTIONS OF 1 TAB BID (THERE IS EVEN A STICKER FROM THE PHARMACY THAT TALKS ABOUT SPLITTING THE DOSE AND NOT TAKING AT THE SAME TIME) HOWEVER PT IS TAKES 2 TABS AM LISINOPRIL 5MG THE DIRECTIONS SHOW 1 TAB DAILY HOWEVER PT IS TAKING OF A 5MG (2.5MG) DAILY THERE WAS A MED LIST FROM THE DR'S OFFICE ON THE CHART BUT THERE WERE SOME MEDS THAT THE STRENGTH THAT IS LISTED IS DIFFERENT THEN WHAT THE PT IS TAKING NOW: ACTOS SHOWS 15MG ON THE MED LIST HOWEVER THE PT IS TAKING 30MG METFORMIN 1000MG IS SHOWN ON THE MED LIST HOWEVER PT IS NOW TAKING 500MG ER LEVOTHYROXINE 100MCG IS LISTED BUT THE PT IS NOW ON 125MCG OTC MEDS" MAGNESIUM POTASSIUM FISH OIL MTV CALCIUM W/ VIT D ASPIRIN 81 MUCINEX
== END | disposition home or self-care (01) ==
LOC: CATH 06:56
PROVIDERS: ATTEND Internal Medicine Cardiovascular Disease
DX: E11.51 Type 2 diabetes mellitus with diabetic peripheral angiopathy without gangrene (principal); I70.203 Unspecified atherosclerosis of native arteries of extremities, bilateral legs; Z79.84 Long term (current) use of oral hypoglycemic drugs; I10 Essential (primary) hypertension; E78.2 Mixed hyperlipidemia; I25.10 Atherosclerotic heart disease of native coronary artery without angina pectoris; E89.0 Postprocedural hypothyroidism; E11.40 Type 2 diabetes mellitus with diabetic neuropathy, unspecified; K21.9 Gastro-esophageal reflux disease without esophagitis; I65.23 Occlusion and stenosis of bilateral carotid arteries; F17.210 Nicotine dependence, cigarettes, uncomplicated; M19.91 Primary osteoarthritis, unspecified site; Z79.899 Other long term (current) drug therapy; Z79.890 Hormone replacement therapy; Z88.8 Allergy status to other drugs, medicaments and biological substances
CPT/HCPCS: 36246; 37224; 71045; 75625; 75716; 80053; 80061; 85027; 85610; 85730; 87081; C1725; C1760; C1887 ×2; C1894 ×2; 36415

== ENCOUNTER 2020-04-18 06:54 | Day surgery (SDC) | payer SELFPAY ==
[2020-04-18] VITALS (13 sets, daily range): BP systolic 94–125; BP diastolic 54–74
[~2020-04-18] VITALS: Ht 162 cm; Wt 77.0 kg
[~2020-04-18 06:54] MED LIST changes: -ASPIRIN 325 MG (5 GR) TABLET ONE; -CLOPIDOGREL 300 MG (PLAVIX) TABLET PO ONE; -HEParin (CATH LAB) 2,000 ML IV ONE; -HEParin 1000 UNIT/ML (10ML VIAL) FOR BOLUS ONE; -LIDOCAINE 1% INJ 20 ML 20 ML VIAL ONE; -MIDAZOLAM 5 MG/5 ML (VERSED) VIAL ONE; -NS IV 1000 ML 1,000 ML ONE; -fentaNYL INJECTION 100 MCG/2 ML AMP ONE
[2020-04-18] MEDS ORDERED: HEParin (CATH LAB) 2,000 ML IV ONE (07:00)
[2020-04-18] MEDS ORDERED: NS IV 1000 ML 1,000 ML ONE ×2 (07:00→09:48)
[2020-04-18] MEDS ORDERED: LIDOCAINE 1% INJ 20 ML 20 ML VIAL ONE (07:00)
[2020-04-18] MEDS ORDERED: NS IV 1000 ML 1,000 ML IV SCH ×2 (07:15→09:44)
[2020-04-18 07:36] LABS: BILIRUBIN,URINE NEGATIVE (NEGATIVE); CLARITY,URINE CLEAR; COLOR,URINE YELLOW; GLUCOSE, URINE (UA) 3+ (NEGATIVE); KETONES,URINE NEGATIVE (NEGATIVE); LEUKOCYTE ESTERASE ,URINE NEGATIVE (NEGATIVE); NITRITE,URINE NEGATIVE (NEGATIVE); PROTEIN,URINE NEGATIVE (NEGATIVE)
[2020-04-18 07:39] LABS: HEMOGLOBIN 13.1 G/DL (11.5-16.0); RED CELL DISTRIBUTION WIDTH 13.1 % (10.0-14.5); WHITE BLOOD COUNT 9.7 10^3/uL (4.3-11.0)
[2020-04-18 07:48] LABS: BACTERIA,URINE TRACE /HPF; RBC,URINE RARE /HPF; WBC,URINE 0-2 /HPF
[2020-04-18 07:51] LABS: INR 0.9 (0.8-1.4); PROTHROMBIN TIME PATIENT 12.4 SEC (12.2-14.7)
[2020-04-18 07:56] LABS: ALBUMIN 4.2 GM/DL (3.2-4.5); BILIRUBIN,TOTAL 0.3 MG/DL (0.1-1.0); CALCIUM 10.2 MG/DL (8.5-10.1); CREATININE SERUM 1.31 MG/DL (0.60-1.30); POTASSIUM 4.2 MMOL/L (3.6-5.0); TOTAL PROTEIN 7.6 GM/DL (6.4-8.2)
--- NOTE | 2020-04-18 07:56 | Diagnostic Imaging Report ---
INDICATION: Preop. Coronary artery disease. Upright chest shows normal heart size and vascularity. The lungs are clear. There is no effusion or pneumothorax. There is no bony abnormality. IMPRESSION: No acute abnormality is seen with no change from 04/11/2020. Dictated by: Dictated on workstation # [id number]
[2020-04-18] MEDS ORDERED: MIDAZOLAM 5 MG/5 ML (VERSED) VIAL ONE (07:59)
[2020-04-18] MEDS ORDERED: fentaNYL INJECTION 100 MCG/2 ML AMP ONE (08:00)
--- NOTE | 2020-04-18 08:07 | Cardiac Procedure Note-CS/ASA ---
Pre-Procedure Note Pre-Op Procedure Note H&P Reviewed The H&P was reviewed, patient examined and no changes noted. Date H&P Reviewed: Apr 18, 2020 Time H&P Reviewed: 08:06 Conscious Sedation Pre-Proced Time 08:06 ASA Score 3 For ASA 3 and 4: Consider anesthesia and medical clearance. Also, for patients with a history of failed moderate sedation consider anesthesia. Airway Lungs Heart ASA score ASA 1: a normal healthy patient ASA 2: a patient with a mild systemic disease (mid diabetes, controlled hypertension, obesity x ASA 3: a patient with a severe systemic disease that limits activity (angina, COPD, prior Myocardial infarction) ASA 4: a patient with an incapacitating disease that is a constant threat to life (CHF, renal failure) ASA 5: a moribund patient not expected to survive 24 hrs. (ruptured aneurysm) ASA 6: a declared brain- patient whose organs are being harvested. For emergent operations, add the letter E after the classification Mallampati Classification Grade 3 Sedation Plan Analgesia, Amnesia, Plan communicated to team members, Discussed options with patient/fam, Discussed risks with patient/fam The patient is an appropriate candidate to undergo the planned procedure, sedation, and anesthesia. The patient immediately re-assessed prior to indication. JESSIE ESPINAL MD Apr 18, 2020 08:07
[2020-04-18] MEDS ORDERED: HEParin 1000 UNIT/ML (10ML VIAL) FOR BOLUS ONE (08:17)
[2020-04-18] MEDS ORDERED: NITRO DRIP 25000 MCG/D5W 250 ML IV ONE (09:10)
[2020-04-18] MEDS ORDERED: CLOPIDOGREL 300 MG (PLAVIX) TABLET PO ONE (09:44)
[2020-04-18] MEDS ORDERED: PATIENT MAY USE OWN MEDS, ALL PO SCH (09:45)
--- NOTE | 2020-04-18 10:12 | Peripheral Report ---
Peripheral Report Physician (s)/Housefellow (s) Physician JESSIE ESPINAL MD Pre-Procedure Diagnosis Pre-Procedure Diagnosis: Peripheral arterial disease Post-Procedure Note Procedure Start Date: Apr 18, 2020 Name of Procedure: Abdominal aortogram Bilateral runoff Third order Additional imaging Balloon angioplasty and stenting to the left SFA Findings/Procedure Note PROCEDURE NOTE: 59-year-old lady with history of peripheral arterial disease, multiple interventions were done in the past, had intervention on the right leg done last week and noted to have severe stenosis on the left SFA and popliteal artery. Scheduled for peripheral intervention. Still having pain in her left leg, reporting improvement in the right leg. After explaining the procedure to the patient, all pros and cons were explained, all questions were answered. The patient signed the consent and then she was placed on the cardiac catheterization laboratory. The patient was placed on the cardiac catheterization laboratory. Groin was prepped SL fashion local anesthesia was used. Sheath placed in the right femoral artery, runoff to the right leg was done, patient was given 5000 unit heparin, REM catheter was advanced to the abdominal bifurcation and runoff to the left leg was done then I was able to advanced along zeina jones, unable to cross the total occlusion in the mid SFA, exchanged the catheter into a straight catheter advanced to the mid SFA and did angiogram at that point then removed the catheter and exchange the sheath into 6 Kinyarwanda 45 sheath, I used command 18 to cross the lesion pocket in the distal tibial peroneal trunk then proceeded with balloon angioplasty using [place] 18 6 x 1 50 with multiple inflation then I used 5 x 60 [place]o 18 and it inflation the popliteal artery then higher pressure inflation in the mid SFA. There was heavy calcification. She had severe stenosis in the proximal stent moderate stenosis in the distal stent. I proceeded with deployment of SUPERA 5.5 x 150 postdilated with 5.5 balloon in between the proximal and distal stent in the mid SFA with excellent results, angiogram showed excellent results with excellent flow distally. Slow flow at the distal tibial arteries. Then the sheath was exchanged into short 6 Kinyarwanda sheath, pigtail catheter was advanced to the abdominal aorta and abdominal aortogram was done. At the end of the procedure sheath was removed, closure device was used FINDINGS: Abdominal aortogram: Mild atherosclerotic plaque, normal renal artery, bifurcation is normal. Right lower extremity runoff, done through the sheath, mild disease in the mid SFA, excellent flow down to the trifurcation. Left lower extremity, multiple segment of severe stenosis in the mid and distal SFA and popliteal artery, successful balloon angioplasty to the popliteal artery using 5 x 60 [place], multiple balloon inflation in the mid SFA then deployment of SUPERA 5.5 x 150 in the mid SFA, no overlap with the old proximal and distal stents, postdilated with 5.5 balloon with excellent results. Below the trifurcation there is slow flow in the posterior tibial artery. CONCLUSIONS: 1. Severe stenosis in the left mid SFA with successful the placement of SUPERA 5.5 x 150 with excellent results, balloon angioplasty for an old superior a stent in the proximal and distal SFA, balloon angioplasty for the left popliteal artery 2. Patent stent in the right SFA with mild in-stent restenosis, good flow down to the trifurcation 3. Normal abdominal aorta, no dissection or complication noted, normal renal arteries DISCUSSION AND RECOMMENDATIONS: Patient was educated on compliance with medication, avoiding smoking. Anesthesia Type: Conscious Sedation Estimated blood loss (mL): 25 ml Contrast Amount: 59 ml Total Radiation Dose: 183 mGy Post-Procedure Diagnosis Post-operative diagnosis: Peripheral arterial disease Claudication Hypertension Hyperlipidemia Diabetes mellitus Tobaccoism JESSIE ESPINAL MD Apr 18, 2020 10:12
--- NOTE | 2020-04-18 10:13 | Discharge Inst-Post CATH ---
Discharge Inst-CATH/EP Problems Reviewed?: Yes Post Cardiac Cath/EP D/C Inst Follow Up/Plan Hold metformin for [address] ESPINAL's office in 2-4 weeks <b>CARDIAC CATH/EP PROCEDURE DISCHARGE INSTRUCTIONS</b> ACTIVITY * Go Home directly and rest. * Limit activity of the leg (or wrist if it was used) for 7 days including aerobics, swimming, jogging, bicycling, etc. * Restrict stair-climbing for 7 days if possible, if not, climb up with your non-cath leg, then bring together on the same step. * Avoid lifting, pushing, pulling or excessive movement of the affected extremity for 7 days. * Customary sexual activity may be resumed after 2 days-use caution not to use a position that strains or causes pain to the affected extremity. * No driving for 24 hours. * NO SMOKING. * Avoid straining for bowel movements for 7 days. * Gentle walking on level ground is allowed. * Returning to work will depend on the type of procedure and the results. Your doctor will discuss this with you. CALL YOUR DOCTOR FOR ANY OF THE FOLLOWING: *If bleeding from the puncture site occurs- Apply gentle pressure to site with clean cloth and call your doctor or EMS. * If a knot or lump forms under the skin, increases in size, or causes pain. * If bruising appears to be worsening or moving further down your leg instead of disappearing. * Temperature above 101 F. CARE OF YOUR GROIN INCISION; * Bruising or purple discoloration of the skin near the puncture site is common. * You may shower only, no bathtub bathing for 5 days. Be careful to avoid slipping as your leg may feel stiff. * If a closure device was used on your femoral artery, please see the attached guide regarding care of the device and your leg. * Leave dressing on FOR 24 hours. CARE OF YOUR WRIST INCISION; * Bruising or purple discoloration of the skin near the puncture site is common. * You may shower. * DO NOT submerge wrist. * Leave dressing on FOR 24 hours. JESSIE ESPINAL MD Apr 18, 2020 10:13 am
[2020-04-18] MEDS ORDERED: CLOP75TA28 PO (10:15)
[2020-04-18] MEDS ORDERED: METF-865 PO (10:15)
[2020-04-18] MEDS ORDERED: OMEPRAZOLE 20 MG (PriLOSEC) CAP NON-FORMULARY PO SCH (18:00)
[2020-04-18] MEDS ORDERED: NON-FORMULARY MEDICATION 1 EA EA (Rivaroxaban (Xarelto) 2.5 MG) PO SCH (21:00)
[2020-04-18] MEDS ORDERED: NON-FORMULARY MEDICATION 1 EA EA (Duloxetine HCl 60 MG) PO SCH (21:00)
[2020-04-18] MEDS ORDERED: GABAPENTIN 600 MG (NEURONTIN) TAB PO SCH (21:00)
[2020-04-18] MEDS ORDERED: NON-FORMULARY MEDICATION 1 EA EA (Potassium 99 MG) PO SCH (21:00)
[2020-04-18] MEDS ORDERED: GLIMEPIRIDE 4 MG (AMARYL) TAB PO SCH (21:00)
[2020-04-18] MEDS ORDERED: ACYCLOVIR 200 MG PO SCH (21:00)
[2020-04-19] MEDS ORDERED: PIOGLITAZONE 30MG (ACTOS) TAB PO SCH (09:00)
[2020-04-19] MEDS ORDERED: NON-FORMULARY MEDICATION 1 EA EA (Canagliflozin (Invokana) 100 MG) PO SCH (09:00)
[2020-04-19] MEDS ORDERED: NON-FORMULARY MEDICATION 1 EA EA (Omega-3 Fatty Acids/Fish Oil (Fish Oil 1,200 mg Softgel) PO SCH (09:00)
[2020-04-19] MEDS ORDERED: MULTIVITAMIN PO SCH (09:00)
[2020-04-19] MEDS ORDERED: CLOPIDOGREL 75 MG (PLAVIX) TABLET PO SCH (09:00)
[2020-04-19] MEDS ORDERED: QUINAPRIL 20 MG (ACCUPRIL) TAB PO SCH (09:00)
[2020-04-19] MEDS ORDERED: GABAPENTIN 600 MG (NEURONTIN) TAB PO SCH (09:00)
[2020-04-19] MEDS ORDERED: LEVOTHYROXINE 125 MCG (LEVOTHROID) TABLET PO SCH (09:00)
[2020-04-19] MEDS ORDERED: NON-FORMULARY MEDICATION 1 EA EA (Magnesium Oxide (Magnesium) 500 MG) PO SCH (09:00)
== END 2020-04-18 16:50 | disposition home or self-care (01) ==
LOC: CATH 06:54 → CSD 15:04 → CATH 16:50
PROVIDERS: ATTEND Internal Medicine Cardiovascular Disease
DX: I70.203 Unspecified atherosclerosis of native arteries of extremities, bilateral legs (principal); I10 Essential (primary) hypertension; E78.2 Mixed hyperlipidemia; F17.210 Nicotine dependence, cigarettes, uncomplicated; E11.51 Type 2 diabetes mellitus with diabetic peripheral angiopathy without gangrene; J44.9 Chronic obstructive pulmonary disease, unspecified; J21.0 Acute bronchiolitis due to respiratory syncytial virus; K21.9 Gastro-esophageal reflux disease without esophagitis; E11.40 Type 2 diabetes mellitus with diabetic neuropathy, unspecified; Z79.890 Hormone replacement therapy; Z79.84 Long term (current) use of oral hypoglycemic drugs; Z79.899 Other long term (current) drug therapy; Z79.82 Long term (current) use of aspirin; Z79.01 Long term (current) use of anticoagulants
CPT/HCPCS: 36247; 36248; 37226; 71045; 75625; 75716; 80053; 81000; 85027; 85610; 85730; 87081; C1725 ×3; C1760; C1769 ×2; C1876; C1887 ×2; C1894 ×2; 36415

== ENCOUNTER 2022-02-14 06:59 | Day surgery (SDC) | payer OTHER ==
[2022-02-14] VITALS (19 sets, daily range): BP systolic 86–142; BP diastolic 35–97
[~2022-02-14] VITALS: Ht 162.6 cm; Wt 76.5 kg
[~2022-02-14 06:59] MED LIST changes: +ACYC-108 PO; -ACYC200C PO; -LISI-556 PO; +LISI5TAB20 PO; -MAGN400T8 PO; +MGX400T PO; -QUIN20TA16 PO; +QUIN20TA36 PO
[2022-02-14] MEDS ORDERED: NS IV 1000 ML 1,000 ML IV SCH (07:15)
[2022-02-14] MEDS ORDERED: HEParin (CATH LAB) 2,000 ML IV ONE (07:21)
[2022-02-14] MEDS ORDERED: NS IV 1000 ML 1,000 ML ONE (07:21)
[2022-02-14] MEDS ORDERED: LIDOCAINE 1% INJ 20 ML VIAL ONE (07:21)
--- NOTE | 2022-02-14 07:38 | Diagnostic Imaging Report ---
Indication: Chest pain Portable chest 7:22 AM Heart and mediastinum are normal. Lungs are clear. There are no effusions or pneumothoraces. IMPRESSION: No acute abnormalities in the chest Dictated by: Dictated on workstation # [id number]
[2022-02-14 07:49] LABS: BILIRUBIN,URINE NEGATIVE (NEGATIVE); CLARITY,URINE CLEAR; COLOR,URINE YELLOW; GLUCOSE, URINE (UA) 3+ (NEGATIVE); KETONES,URINE NEGATIVE (NEGATIVE); LEUKOCYTE ESTERASE ,URINE NEGATIVE (NEGATIVE); NITRITE,URINE POSITIVE (NEGATIVE); PH,URINE 5.5 (5-9); PROTEIN,URINE NEGATIVE (NEGATIVE)
[2022-02-14 07:51] LABS: HEMATOCRIT 41 % (35-52); HEMOGLOBIN 13.8 g/dL (11.5-16.0); MEAN CORPUSCULAR HEMOGLOBIN 33 pg (25-34); MEAN CORPUSCULAR HGB CONC 34 g/dL (32-36); MEAN CORPUSCULAR VOLUME 96 fL (80-99); MEAN PLATELET VOLUME 8.8 fL (9.0-12.2); PLATELET COUNT 304 10^3/uL (130-400); WHITE BLOOD COUNT 8.4 10^3/uL (4.3-11.0)
[2022-02-14 07:58] LABS: RBC,URINE RARE /HPF
[2022-02-14 07:59] LABS: BACTERIA,URINE MODERATE /HPF
[2022-02-14 08:00] LABS: INR 0.9 (0.8-1.4); PROTHROMBIN TIME PATIENT 12.5 SEC (12.2-14.7)
[2022-02-14 08:04] LABS: CALCIUM 9.5 MG/DL (8.5-10.1)
[2022-02-14 08:06] LABS: TOTAL PROTEIN 7.5 GM/DL (6.4-8.2)
[2022-02-14 08:08] LABS: BILIRUBIN,TOTAL 0.4 MG/DL (0.1-1.0)
[2022-02-14] MEDS ORDERED: LISI5TAB20 PO (08:15)
[2022-02-14] MEDS ORDERED: LEVO112C4 PO (08:15)
[2022-02-14] MEDS ORDERED: MAGN200T8 PO (08:15)
[2022-02-14] MEDS ORDERED: CANA1TAB3 PO (08:15)
[2022-02-14] MEDS ORDERED: FERR-84 PO (08:15)
[2022-02-14] MEDS ORDERED: fentaNYL INJ 100 MCG/2 ML AMP ONE ×2 (09:02→14:30)
[2022-02-14] MEDS ORDERED: MIDAZOLAM 5 MG/5 ML (VERSED) VIAL ONE (09:02)
--- NOTE | 2022-02-14 09:23 | Conscious Sedation/ASA ---
Conscious Sedation Pre-Proced Time 09:23 ASA Score 3 For ASA 3 and 4: Consider anesthesia and medical clearance. Also, for patients with a history of failed moderate sedation consider anesthesia. Airway Lungs Heart ASA score ASA 1: a normal healthy patient ASA 2: a patient with a mild systemic disease (mid diabetes, controlled hypertension, obesity x ASA 3: a patient with a severe systemic disease that limits activity (angina, COPD, prior Myocardial infarction) ASA 4: a patient with an incapacitating disease that is a constant threat to life (CHF, renal failure) ASA 5: a moribund patient not expected to survive 24 hrs. (ruptured aneurysm) ASA 6: a declared brain- patient whose organs are being harvested. For emergent operations, add the letter E after the classification Mallampati Classification Grade 3 Sedation Plan Analgesia, Amnesia, Plan communicated to team members, Discussed options with patient/fam, Discussed risks with patient/fam The patient is an appropriate candidate to undergo the planned procedure, sedation, and anesthesia. The patient immediately re-assessed prior to indication. JESSIE ESPINAL MD Feb 14, 2022 09:23
[2022-02-14] MEDS ORDERED: HEParin 1000 UNIT/ML (10ML VIAL) FOR BOLUS ONE (09:50)
[2022-02-14] MEDS ORDERED: PATIENT MAY USE OWN MEDS, ALL PO SCH (10:15)
--- NOTE | 2022-02-14 10:17 | Peripheral Report ---
Peripheral Report Physician (s)/Merchandise Appraiser (s) Physician JESSIE ESPINAL MD Pre-Procedure Diagnosis Pre-Procedure Diagnosis: Peripheral arterial disease Post-Procedure Note Procedure Start Date: Feb 14, 2022 Name of Procedure: Bilateral lower extremities runoff Third order Additional imaging Angioplasty to the right SFA Findings/Procedure Note PROCEDURE NOTE: 61-year-old lady with extensive peripheral arterial disease, multiple interventions in the past, has been having increasing claudication, has an abnormal bilateral SERGIO, scheduled for peripheral angiogram with possible intervention After explaining the procedure to the patient, all pros and cons were explained, all questions were answered. The patient signed the consent and then she was placed on the cardiac catheterization laboratory. The patient was placed on the cardiac catheterization laboratory. Groin was prepped SL fashion local anesthesia was used. Sheath placed in the left femoral artery, runoff was done to the left leg then a rim catheter was advanced and crossed over Storq wire was advanced then a straight catheter was placed at the right common femoral artery and runoff to the right leg was done then the straight catheter was advanced over Storq wire down to the tibioperoneal trunk and DSA imaging was done to the trifurcation. Then the Storq wire was placed again and the straight catheter was removed and the sheath was removed and a long 6 Portuguese sheath was placed. Patient was given 5000 units of heparin Balloon angioplasty for severe in-stent restenosis in the proximal and mid right SFA was done using [place] 5 x 100 with excellent results. Sheath was exchanged again to short 6 Portuguese sheath and it was sutured in place FINDINGS: Right lower extremity, multiple stents in the SFA with severe in-stent restenosis in the proximal and mid right SFA, successful balloon angioplasty using [place] 5 x 100 with excellent results. Distally there is mild disease, moderate disease at the tibial peroneal trunk, small vessel disease below the trifurcation no significant obstructive disease Left lower extremity, multiple stents at the left SFA with moderate to severe stenosis within the stent. Slow flow distally CONCLUSIONS: 1. Severe in-stent restenosis in the right SFA successful balloon angioplasty using [place] 5 x 100 with excellent results 2. Mild to moderate disease in the right tibioperoneal trunk, slow flow distally, mild disease nonobstructive disease 3. Severe in-stent restenosis at the left SFA, it will be staged to be done later DISCUSSION AND RECOMMENDATIONS: Continue to maximize medical therapy and educated on smoking cessation Anesthesia Type: Conscious Sedation Estimated blood loss (mL): 25 ml Contrast Amount: 23 ml Total Radiation Dose: 95 mGy Post-Procedure Diagnosis Post-operative diagnosis: Claudication Peripheral arterial disease Hypertension Hyperlipidemia JESSIE ESPINAL MD Feb 14, 2022 10:17
[2022-02-14] MEDS ORDERED: ASPIRIN 325 MG (5 GR) TABLET ONE (10:19)
[2022-02-14] MEDS ORDERED: CLOPIDOGREL 300 MG (PLAVIX) TABLET PO ONE (10:19)
--- NOTE | 2022-02-14 12:10 | Tele-ICU Progress Note ---
Progress Note Video assessment done , Hemodynamically stable Available charting reviewed NO TELE-ICU CONSULT REQUESTED CONTINUE TO MONITOR PER USUAL TELE-ICU PROTOCOL No need for Tele-ICU interventions Plans as delineated by bedside physicians / consultants Focused Exam Height, Weight, BMI Height: 5'4.00" Weight: 177lbs. 0.0oz. 80.563560lg; 29.08 BMI Method:Stated NILSON HURTADO MD Feb 14, 2022 12:10
[2022-02-14] MEDS: NS IV 1000 ML 1,000 ML IV SCH ×3 (12:21→23:10)
[2022-02-14] MEDS ORDERED: ATROPINE INJECTION 1 MG/10 ML SYR (ABBOTT) ONE (14:30)
[2022-02-14] MEDS: GLIMEPIRIDE 4 MG (AMARYL) TAB PO SCH (17:42)
[2022-02-14] MEDS ORDERED: PANTOPRAZOLE 20 MG TABLET (PROTONIX) PO SCH (18:00)
[2022-02-14] MEDS ORDERED: OMEPRAZOLE 20 MG (PriLOSEC) CAP NON-FORMULARY PO SCH (18:00)
[2022-02-14] MEDS ORDERED: ACYCLOVIR 400 MG TABLET (ZOVIRAX) PO SCH (21:00)
[2022-02-14] MEDS ORDERED: ACYCLOVIR 200 MG PO SCH (21:00)
[2022-02-14] MEDS ORDERED: lisINopril 5 MG (PRINIVIL) TABLET PO SCH (21:00)
[2022-02-15] VITALS (9 sets, daily range): BP systolic 108–140; BP diastolic 44–69
[2022-02-15 06:27] LABS: HEMATOCRIT 38 % (35-52); HEMOGLOBIN 12.5 g/dL (11.5-16.0); MEAN CORPUSCULAR HEMOGLOBIN 33 pg (25-34); MEAN CORPUSCULAR HGB CONC 33 g/dL (32-36); MEAN CORPUSCULAR VOLUME 98 fL (80-99); MEAN PLATELET VOLUME 9.3 fL (9.0-12.2); PLATELET COUNT 267 10^3/uL (130-400); WHITE BLOOD COUNT 8.4 10^3/uL (4.3-11.0)
[2022-02-15] MEDS ORDERED: LEVOTHYROXINE 112 MCG (LEVOTHROID) TAB PO SCH (06:30)
[2022-02-15 06:49] LABS: POTASSIUM 3.7 MMOL/L (3.6-5.0)
[2022-02-15 06:50] LABS: CALCIUM 8.8 MG/DL (8.5-10.1)
[2022-02-15 06:54] LABS: CREATININE SERUM 0.79 MG/DL (0.60-1.30)
[2022-02-15] MEDS ORDERED: MULTIVIT W/MINERALS TAB (THERAGRAN M) PO SCH (07:00)
[2022-02-15] MEDS ORDERED: MAGNESIUM OXIDE (MAG-OX)400 MG TAB PO SCH (08:00)
[2022-02-15] MEDS ORDERED: fentaNYL INJ 100 MCG/2 ML AMP ONE ×2 (08:21→09:50)
[2022-02-15] MEDS ORDERED: NS IV 1000 ML 1,000 ML ONE (08:22)
[2022-02-15] MEDS ORDERED: HEParin (CATH LAB) 2,000 ML IV ONE (08:22)
[2022-02-15] MEDS ORDERED: LIDOCAINE 1% INJ 20 ML VIAL ONE ×2 (08:22→09:49)
[2022-02-15] MEDS ORDERED: MIDAZOLAM 5 MG/5 ML (VERSED) VIAL ONE (08:22)
[2022-02-15] MEDS ORDERED: NITRO DRIP 25000 MCG/D5W 0 ML IV ONE (08:31)
--- NOTE | 2022-02-15 08:39 | Conscious Sedation/ASA ---
Conscious Sedation Pre-Proced Time 08:39 ASA Score 3 For ASA 3 and 4: Consider anesthesia and medical clearance. Also, for patients with a history of failed moderate sedation consider anesthesia. Airway Lungs Heart ASA score ASA 1: a normal healthy patient ASA 2: a patient with a mild systemic disease (mid diabetes, controlled hypertension, obesity x ASA 3: a patient with a severe systemic disease that limits activity (angina, COPD, prior Myocardial infarction) ASA 4: a patient with an incapacitating disease that is a constant threat to life (CHF, renal failure) ASA 5: a moribund patient not expected to survive 24 hrs. (ruptured aneurysm) ASA 6: a declared brain- patient whose organs are being harvested. For emergent operations, add the letter E after the classification Mallampati Classification Grade 3 Sedation Plan Analgesia, Amnesia, Plan communicated to team members, Discussed options with patient/fam, Discussed risks with patient/fam The patient is an appropriate candidate to undergo the planned procedure, sedation, and anesthesia. The patient immediately re-assessed prior to indication. JESSIE ESPINAL MD Feb 15, 2022 08:39
[2022-02-15] MEDS ORDERED: OMEGA 3 (FISH OIL) 1000 MG CAP PO SCH (09:00)
[2022-02-15] MEDS ORDERED: GABAPENTIN 600 MG (NEURONTIN) TAB PO SCH (09:00)
[2022-02-15] MEDS ORDERED: MULTIVITAMIN PO SCH (09:00)
[2022-02-15] MEDS ORDERED: CLOPIDOGREL 75 MG (PLAVIX) TABLET PO SCH (09:00)
[2022-02-15] MEDS ORDERED: NON-FORMULARY MEDICATION 1 EA EA (Omega-3 Fatty Acids/Fish Oil (Fish Oil 1,200 mg Softgel) PO SCH (09:00)
[2022-02-15] MEDS ORDERED: ASPIRIN E.C. 81 MG (ECOTRIN) TAB PO SCH (09:00)
[2022-02-15] MEDS ORDERED: PIOGLITAZONE 30MG (ACTOS) TAB PO SCH (09:00)
[2022-02-15] MEDS ORDERED: FERROUS SULF 325 MG (IRON) TAB PO SCH (09:00)
[2022-02-15] MEDS ORDERED: NON-FORMULARY MEDICATION 1 EA EA (Levothyroxine Sodium (Levothyroxine) 112 MCG) PO SCH (09:00)
[2022-02-15] MEDS ORDERED: MAGNESIUM OXIDE 250 MG PO SCH (09:00)
[2022-02-15] MEDS ORDERED: MIDAZOLAM 2 MG/2 ML (VERSED) VIAL ONE (09:51)
[2022-02-15] MEDS ORDERED: HEParin 1000 UNIT/ML (10ML VIAL) FOR BOLUS ONE (10:04)
--- NOTE | 2022-02-15 10:25 | Discharge Inst-Post CATH ---
Discharge Inst-CATH/EP Problems Reviewed?: Yes Post Cardiac Cath/EP D/C Inst Follow Up/Plan Appointment with Dr. Vallejo's office in 2 to 4 weeks <b>CARDIAC CATH/EP PROCEDURE DISCHARGE INSTRUCTIONS</b> ACTIVITY * Go Home directly and rest. * Limit activity of the leg (or wrist if it was used) for 7 days including aer obics, swimming, jogging, bicycling, etc. * Restrict stair-climbing for 7 days if possible, if not, climb up with your non-cath leg, then bring together on the same step. * Avoid lifting, pushing, pulling or excessive movement of the affected extremi ty for 7 days. * Customary sexual activity may be resumed after 2 days-use caution not to use a position that strains or causes pain to the affected extremity. * No driving for 24 hours. * NO SMOKING. * Avoid straining for bowel movements for 7 days. * Gentle walking on level ground is allowed. * Returning to work will depend on the type of procedure and the results. Your doctor will discuss this with you. CALL YOUR DOCTOR FOR ANY OF THE FOLLOWING: *If bleeding from the puncture site occurs- Apply gentle pressure to site with clean cloth and call your doctor or EMS. * If a knot or lump forms under the skin, increases in size, or causes pain. * If bruising appears to be worsening or moving further down your leg instead of disappearing. * Temperature above 101 F. CARE OF YOUR GROIN INCISION; * Bruising or purple discoloration of the skin near the puncture site is common. * You may shower only, no bathtub bathing for 5 days. Be careful to avoid slipping as your leg may feel stiff. * If a closure device was used on your femoral artery, please see the attached guide regarding care of the device and your leg. * Leave dressing on FOR 24 hours. CARE OF YOUR WRIST INCISION; * Bruising or purple discoloration of the skin near the puncture site is common. * You may shower. * DO NOT submerge wrist. * Leave dressing on FOR 24 hours. JESSIE VALLEJO MD Feb 15, 2022 10:25
--- NOTE | 2022-02-15 10:29 | Peripheral Report ---
Peripheral Report Physician (s)/Operator Vacuum (s) Physician JESSIE ESPINAL MD Pre-Procedure Diagnosis Pre-Procedure Diagnosis: Peripheral arterial disease Post-Procedure Note Procedure Start Date: Feb 15, 2022 Name of Procedure: Abdominal aortogram Balloon angioplasty to the left SFA Findings/Procedure Note PROCEDURE NOTE: 61-year-old lady with peripheral arterial disease, underwent percutaneous intervention to the right lower extremity on February 14, 2022. She was scheduled for percutaneous intervention. After explaining the procedure to the patient, all pros and cons were explained, all questions were answered. The patient signed the consent and then she was placed on the cardiac catheterization laboratory. The patient was placed on the cardiac catheterization laboratory. Groin was prepped SL fashion local anesthesia was used. Sheath placed in the right femoral artery, rim catheter was used to cross over. A long straight sheath was placed then Storq wire was advanced and parked in the distal popliteal artery. Patient received 3000 units of heparin, I used [place] 5 x 150 with multiple inflation, angiogram showed excellent results. At the end of the procedure I proceeded with placement of a pigtail catheter in the abdominal aorta and performed abdominal aortogram evaluate the abdominal aorta and the aortic bifurcation. Sheath was exchanged to a short 6 Czech sheath then it was removed and closure device deployed FINDINGS: Abdominal aortogram showed mild atherosclerotic plaques in the abdominal aorta, normal renal arteries bilaterally, normal SMA and LITZY, aortic bifurcation and common iliac artery with mild disease. Left lower extremity: Patient had multiple stents in the left SFA, multiple area of moderate to severe stenosis, successful balloon angioplasty using [place] 5 x 150 with excellent results good flow down to the foot. CONCLUSIONS: 1. Moderate to severe in-stent restenosis in the left lower extremity, successful balloon angioplasty with [place] 5 x 150 with excellent results 2. Mild atherosclerotic plaques in the abdominal aorta, no dissection or aneurysm, normal renal arteries and aortic bifurcation and common iliac arteries DISCUSSION AND RECOMMENDATIONS: Continue to maximize medical therapy. Educated on smoking cessation Anesthesia Type: Conscious Sedation Estimated blood loss (mL): 15 ml Contrast Amount: 45 ml Total Radiation Dose: 230 mGy Post-Procedure Diagnosis Post-operative diagnosis: Claudication Peripheral arterial disease Hypertension Hyperlipidemia JESSIE ESPINAL MD Feb 15, 2022 10:29
[2022-02-15] MEDS ORDERED: NS IV 1000 ML 1,000 ML IV SCH (10:30)
[2022-02-15] MEDS ORDERED: PATIENT MAY USE OWN MEDS, ALL PO SCH (10:30)
--- NOTE | 2022-02-15 10:31 | Cardiology Progress Note ---
Subjective Date Seen by Provider: Feb 15, 2022 Time Seen by Provider: 10:29 Subjective/Events-last exam Patient was seen at bedside, laying down comfortably, denied any chest pain Review of Systems General: No Chills, No Night Sweats, No Fatigue, No Malaise, No Appetite, No Other HEENT: No Head Aches, No Visual Changes, No Eye Pain, No Ear Pain, No Dysphasia, No Sinus Congestion, No Post Nasal Drip, No Sore Throat, No Other Pulmonary: No Dyspnea, No Cough, No Pleuritic Chest Pain, No Other Cardiovascular: No: Chest Pain, Palpitations, Orthopnea, Paroxysmal Noc. Dyspnea, Edema, Lt Headedness, Other Objective-Cardiology Exam Last Set of Vital Signs Vital Signs 02/14/22 02/15/22 12:00 09:00 Temp 36.0 Pulse 70 Resp 18 B/P (MAP) 133/69 (90) Pulse Ox 97 O2 Delivery Room Air I&O Intake and Output 02/15/22 00:00 Intake Total 570 ml Output Total 650 ml Balance -80 ml Intake Oral 570 ml Output Urine Total 650 ml Daily Weight Change No General: Alert, Oriented X3, Cooperative HEENT: Atraumatic, PERRLA Neck: Supple, No JVD, No Thyromegaly Lungs: Clear to Auscultation, Normal Air Movement Heart: Regular Rate, Normal S1, Normal S2, No Murmurs Abdomen: Normal Bowel Sounds, Soft, No Tenderness, No Hepatosplenomegaly, No Masses Extremities: No Clubbing, No Cyanosis, No Edema, Normal Pulses, No Tenderness /Swelling Skin: No Rashes, No Breakdown, No Significant Lesion Neuro: Normal Gait, Normal Speech, Strength at 5/5 X4 Ext, Normal Tone, Sensation Intact Psych/Mental Status: Mental Status NL, Mood NL Results Lab Laboratory Tests 02/15/22 05:18 A/P-Cardiology Admission Diagnosis Claudication Peripheral arterial disease Hypertension Hyperlipidemia Tobaccoism Assessment/Plan Claudication, bilateral peripheral arterial disease February 14, 2022 successful balloon angioplasty for in-stent restenosis in the right SFA February 15, 2022 successful balloon angioplasty to the in-stent restenosis in the left SFA Patient is recovering well and doing well. Planning to discharge today Hypertension, continue on home medication Hyperlipidemia, continue to monitor lipid lipids Tobaccoism educated on smoking cessation JESSIE ESPINAL MD Feb 15, 2022 10:31
[2022-02-15] MEDS: GLIMEPIRIDE 4 MG (AMARYL) TAB PO SCH (11:15)
== END 2022-02-15 16:20 | disposition home or self-care (01) ==
LOC: CATH 06:59 → ICU 10:39 → CATH 02-15 16:20
PROVIDERS: ATTEND Internal Medicine Cardiovascular Disease
DX: I70.213 Atherosclerosis of native arteries of extremities with intermittent claudication, bilateral legs (principal); I10 Essential (primary) hypertension; E78.5 Hyperlipidemia, unspecified; E66.9 Obesity, unspecified; F17.210 Nicotine dependence, cigarettes, uncomplicated; I25.10 Atherosclerotic heart disease of native coronary artery without angina pectoris; I65.23 Occlusion and stenosis of bilateral carotid arteries; E03.9 Hypothyroidism, unspecified; K21.9 Gastro-esophageal reflux disease without esophagitis; M19.90 Unspecified osteoarthritis, unspecified site; J44.9 Chronic obstructive pulmonary disease, unspecified; E78.2 Mixed hyperlipidemia; Z68.28 Body mass index [BMI] 28.0-28.9, adult; Z79.82 Long term (current) use of aspirin; Z79.890 Hormone replacement therapy; Z79.899 Other long term (current) drug therapy
CPT/HCPCS: 36247; 36248; 37224 ×2; 71045; 75625; 75716; 80048; 80053; 80061; 81000; 82947; 85027 ×2; 85347; 85610; 85730; 87077; 87081; 87088; 87186; 93005; C1725 ×2; C1769 ×2; C1887 ×5; C1894 ×3; 36415

== ENCOUNTER → 2022-02-20 | Outpatient (CLI) | payer OTHER ==
[~2022-02-20] MED LIST changes: +CANA1TAB3 PO; +FERR-84 PO; +LEVO112C4 PO; +MAGN200T8 PO
== END ==
LOC: CARD 09:16
PROVIDERS: ATTEND Physician Assistant
DX: I10 Essential (primary) hypertension (principal)
CPT/HCPCS: 93306

== ENCOUNTER → 2022-03-31 | Outpatient (CLI) | payer OTHER ==
[~2022-03-31] VITALS: Ht 162 cm; Wt 77.0 kg
[~2022-03-31] MED LIST changes: +CATHETER FLUSH 10 ML SYR IVP PRN; +REGADENOSON 0.4 MG/5 ML SYR (LEXISCAN) IV ONE
[2022-03-31 08:48] VITALS: BP 105/57
--- NOTE | 2022-04-01 08:51 | Cardiology Stress Test Report ---
Stress Test Report Date of Procedure/Referring: Date of Procedure: Mar 31, 2022 PCP Marisela Gutiérrez DO Admitting Physician Admitting Physician: Attending Physician: Julisa Spears Indications: CAD Baseline Heart Rate: 71 Baseline Blood Pressure: Blood Pressure Systolic: 105 Blood Pressure Diastolic: 57 Baseline Vitals Vital Signs Date Time Temp Pulse Resp B/P (MAP) Pulse Ox O2 Delivery O2 Flow Rate FiO2 03/31/22 08:48 67 105/57 (73) 98 Baseline EKG: Baseline EKG: NSR Summary After explaining the procedure to the patient, she signed a consent and then brought to the stress nuclear laboratory. Patient received 0.4 mg Lexiscan for stress test, ECG, heart rate and blood pressure were monitored continuously. Resting and stress dose of radio tracer were injected, imaging was acquired and reviewed in short axis, horizontal long axis and vertical long axis views. TID: 1.18 SSS: 8 SDS: 0 EF: 67 1. Patient tolerated Lexiscan well 2. Fixed defect involving the mid to apical inferior wall with no reversible ischemia 3. Normal left ventricular size with normal contractility, ejection fraction 67%, inferior wall is enrique normally Copy Copies To 1: [facility]/JESSIE ESCAMILLA MD Apr 01, 2022 08:51
== END ==
LOC: CARD 07:38
PROVIDERS: ATTEND Physician Assistant
DX: I25.10 Atherosclerotic heart disease of native coronary artery without angina pectoris (principal)
CPT/HCPCS: 78452; 93017; A9502

== ENCOUNTER → 2023-01-07 | Outpatient (CLI) | payer OTHER ==
[~2023-01-07] MED LIST changes: -CATHETER FLUSH 10 ML SYR IVP PRN; -REGADENOSON 0.4 MG/5 ML SYR (LEXISCAN) IV ONE
--- NOTE | 2023-01-07 11:17 | Diagnostic Imaging Report ---
CLINICAL INDICATION: Patient with chronic shoulder pain. EXAM: MRI of the cervical spine performed without IV contrast. Sequences include sagittal T2, sagittal T1, sagittal T2 fat-sat, and axial T2. COMPARISON: None. FINDINGS: There is no acute cervical spine fracture. Limited visualization of the posterior fossa is unremarkable. There is CSF flow artifact which limits evaluation of the [place]. The visualized portions of the cervical spinal cord have normal cord caliber with no abnormal signal. There is no significant paraspinal soft tissue abnormality. There are degenerative spurs involving the cervical spine and mild facet arthropathy. C1-C2: There are degenerative spurs involving the atlantoodontoid interval anteriorly. There is no significant central canal stenosis. C2-C3: Unremarkable. C3-C4: There is mild bilateral facet arthropathy. There is mild diffuse disk bulge. There is no significant central canal or neuroforaminal narrowing. C4-C5: There is a small disk bulge anteriorly and posteriorly. There is mild bilateral facet arthropathy. There is no significant central canal or neuroforaminal narrowing. C5-C6: There is grade 1 retrolisthesis of C5 on C6. There is a diffuse disk bulge with moderate loss of disk space height and bilateral uncinate spurs. There is moderate central canal stenosis. There is severe right neuroforaminal narrowing and at least moderate left neuroforaminal narrowing. C6-C7: There is a diffuse disk bulge, moderate loss of disk space height, and bilateral uncinate spurs. There is moderate central canal stenosis. There is mild left neuroforaminal narrowing and severe right neuroforaminal narrowing. C7-T1: There is mild bilateral facet arthropathy. There is no significant central spinal canal or neuroforaminal narrowing. IMPRESSION: 1: There is no acute cervical spine fracture. 2: There is multilevel cervical spine degenerative disk disease which is worse at the C5-C6 and C6-C7 levels. Dictated by: Dictated on workstation # [id number]
--- NOTE | 2023-01-07 11:29 | Diagnostic Imaging Report ---
EXAMINATION: Magnetic resonance imaging of the right shoulder without contrast. DATE: January 07, 2023. COMPARISON: None. HISTORY: 62-year-old female, right shoulder pain. TECHNIQUE: Magnetic Resonance Imaging sequences were performed of the shoulder without contrast. FINDINGS: ROTATOR CUFF, LIGAMENTS, TENDONS, AND MUSCLES: There is a 13 mm wide full-thickness tear of the anterior aspect of the supraspinatus tendon which measures 8 mm in medial to lateral extent. Infraspinatus and teres minor tendons are intact. The scapularis tendon is intact. There is normal rotator cuff muscle bulk and signal. LONG HEAD OF BICEPS: The biceps labral attachment and long head of the biceps tendon is intact. The long head of the biceps tendon is normally positioned within the bicipital groove. GLENOHUMERAL JOINT: The humeral head is well positioned relative to the glenoid. The labrum is grossly intact. There is no identified paralabral cyst. The articular cartilage is grossly intact. There is no joint effusion. ACROMIOCLAVICULAR JOINT: The acromioclavicular joint is normally aligned. The coracoclavicular and coracoacromial ligaments are intact. There are no degenerative changes of the acromioclavicular joint. BONE: There is no os acromiale. There is no Hill-Sachs deformity. There is no acute fracture, bone contusion, or evidence of osteonecrosis. BURSAE AND SOFT TISSUES: The bursae and soft tissue surrounding the shoulder are unremarkable. IMPRESSION: 1. 13 mm wide full-thickness tear of the anterior aspect of the supraspinatus tendon measuring 8 mm in medial to lateral extent. No fatty muscle atrophy. 2. Intact acromioclavicular joint. 3. Intact proximal long head of the biceps tendon. 4. Grossly intact labrum and unremarkable additional glenohumeral joint assessment. 5. No acute fracture, bone contusion, or other notable bone marrow signal abnormality. Dictated by: Dictated on workstation # [id number]
== END ==
LOC: RAD 08:59
PROVIDERS: ATTEND Nurse Practitioner Family
DX: M50.322 Other cervical disc degeneration at C5-C6 level (principal); M50.323 Other cervical disc degeneration at C6-C7 level; M75.121 Complete rotator cuff tear or rupture of right shoulder, not specified as traumatic
CPT/HCPCS: 72141; 73221

== ENCOUNTER → 2023-04-06 | Outpatient (CLI) | payer OTHER ==
[~2023-04-06] MED LIST changes: +CATHETER FLUSH 10 ML SYR IVP PRN
--- NOTE | 2023-04-06 15:41 | Diagnostic Imaging Report ---
INDICATION: Initial staging solitary pulmonary nodule. Serum blood glucose level at the time of injection is 172 mg/dL. Patient was administered 9.8 mCi F-18 FDG intravenously in the left antecubital location and PET imaging was performed from the top of the skull to mid thighs. Noncontrast CT was also performed for attenuation correction and anatomic correlation. CORRELATION is made with outside CT study of the chest performed 03/23/2023. There is symmetric activity throughout the brain. Soft tissues of the neck are unremarkable. There is very low level activity identified in the spiculated nodule in the right right upper lobe seen on outside CT study. SUV max is 1.3. No mediastinal or hilar hypermetabolism is identified. There is physiologic activity within the gastrointestinal and genitourinary tracts of the abdomen and pelvis. No suspicious areas of hypermetabolism are identified. IMPRESSION: Unremarkable PET/CT study. There is low level activity in the spiculated nodule in the right upper lobe. Continued close interval follow-up with routine CT chest would be recommended to ensure stability. Dictated by: Dictated on workstation # [id number]
== END ==
LOC: RAD 09:40
PROVIDERS: ATTEND Nurse Practitioner Family
DX: R91.1 Solitary pulmonary nodule (principal)
CPT/HCPCS: 78815; 82947; A9552

== ENCOUNTER 2023-07-08 06:50 | Day surgery (SDC) | payer OTHER ==
[2023-07-08] VITALS (11 sets, daily range): BP systolic 91–119; BP diastolic 42–81
[~2023-07-08] VITALS: Ht 162.6 cm; Wt 90.0 kg
[~2023-07-08 06:50] MED LIST changes: -CATHETER FLUSH 10 ML SYR IVP PRN
[2023-07-08] MEDS ORDERED: HEParin (CATH LAB) 2,000 ML IV ONE (06:57)
[2023-07-08] MEDS ORDERED: NS IV 1000 ML 1,000 ML ONE (06:57)
[2023-07-08] MEDS ORDERED: LIDOCAINE 1% INJ 20 ML VIAL ONE (06:57)
[2023-07-08] MEDS ORDERED: NS IV 1000 ML 1,000 ML IV SCH ×2 (07:00→09:00)
[2023-07-08 07:22] LABS: HEMATOCRIT 30 % (35-52); HEMOGLOBIN 9.5 g/dL (11.5-16.0); MEAN CORPUSCULAR HEMOGLOBIN 32 pg (25-34); MEAN CORPUSCULAR HGB CONC 31 g/dL (32-36); MEAN CORPUSCULAR VOLUME 102 fL (80-99); MEAN PLATELET VOLUME 8.6 fL (9.0-12.2); PLATELET COUNT 304 10^3/uL (130-400); WHITE BLOOD COUNT 7.4 10^3/uL (4.3-11.0)
[2023-07-08 07:32] LABS: BACTERIA,URINE TRACE /HPF; BILIRUBIN,URINE NEGATIVE (NEGATIVE); CLARITY,URINE CLEAR; COLOR,URINE YELLOW; GLUCOSE, URINE (UA) NEGATIVE (NEGATIVE); KETONES,URINE NEGATIVE (NEGATIVE); LEUKOCYTE ESTERASE ,URINE TRACE (NEGATIVE); NITRITE,URINE NEGATIVE (NEGATIVE); PH,URINE 5.5 (5-9); PROTEIN,URINE NEGATIVE (NEGATIVE); SQUAMOUS EPITHELIAL CELL,UR 0-2 /HPF
--- NOTE | 2023-07-08 07:33 | Diagnostic Imaging Report ---
INDICATION: Peripheral arterial disease. Abnormal ankle brachial index COMPARISON: 04/18/2020 FINDINGS: Single frontal view of the chest demonstrates normal heart size and pulmonary vascularity. The lungs are well aerated and clear. No large pleural effusion or pneumothorax is seen. The visualized osseous structures show no acute abnormalities. IMPRESSION: 1. No acute cardiopulmonary process. Dictated by: Dictated on workstation # [id number]
[2023-07-08] MEDS ORDERED: ATOR40TA70 PO (07:36)
[2023-07-08] MEDS ORDERED: ASPI-1238 PO (07:36)
[2023-07-08] MEDS ORDERED: CLOP-31 PO (07:36)
[2023-07-08] MEDS ORDERED: GBPN600T PO ×2 (07:36)
[2023-07-08] MEDS ORDERED: BUPR200T2 PO (07:36)
[2023-07-08] MEDS ORDERED: SITA100T12 PO (07:36)
[2023-07-08] MEDS ORDERED: MIDAZOLAM INJ 5 MG/5 ML VIAL ONE (07:41)
[2023-07-08] MEDS ORDERED: fentaNYL INJECTION 100 MCG/2 ML VIAL ONE ×2 (07:41→08:37)
[2023-07-08 07:42] LABS: ALBUMIN 3.7 GM/DL (3.2-4.5); BILIRUBIN,TOTAL 0.3 MG/DL (0.1-1.0); CALCIUM 8.9 MG/DL (8.5-10.1); CREATININE SERUM 1.22 MG/DL (0.60-1.30); POTASSIUM 4.5 MMOL/L (3.6-5.0); TOTAL PROTEIN 7.1 GM/DL (6.4-8.2)
[2023-07-08 07:53] LABS: PROTHROMBIN TIME PATIENT 13.8 SEC (12.2-14.7)
--- NOTE | 2023-07-08 07:56 | Cardiac Procedure Note-CS/ASA ---
Pre-Procedure Note Pre-Op Procedure Note Date of Available H&P: Jun 23, 2023 Date H&P Reviewed: Jul 08, 2023 Time H&P Reviewed: 07:55 History & Physical: H&P Reviewed, Patient Examed, No changes noted Pre-Operative Diagnosis: Peripheral arterial disease Moderate Sedation PreProcedure Time 07:55 ASA Score 3 Airway Lungs Heart ASA score ASA 1: a normal healthy patient ASA 2: a patient with a mild systemic disease (mid diabetes, controlled hypertension, obesity ASA 3: a patient with a severe systemic disease that limits activity (angina, COPD, prior Myocardial infarction) ASA 4: a patient with an incapacitating disease that is a constant threat to life (CHF, renal failure) ASA 5: a moribund patient not expected to survive 24 hrs. (ruptured aneurysm) ASA 6: a declared brain- patient whose organs are being harvested. For emergent operations, add the letter E after the classification Mallampati Classification Grade 3 Sedation Plan Analgesia, Amnesia, Plan communicated to team members, Discussed options with patient/fam, Discussed risks with patient/fam The patient is an appropriate candidate to undergo the planned procedure, sedation, and anesthesia. The patient immediately re-assessed prior to indication. JESSIE ESPINAL MD Jul 08, 2023 07:55
[2023-07-08] MEDS ORDERED: HEParin 1000 UNIT/ML (10ML VIAL) FOR BOLUS ONE (08:31)
[2023-07-08] MEDS ORDERED: NITRO DRIP 25000 MCG/D5W 0 ML IV ONE (08:32)
[2023-07-08] MEDS ORDERED: ASPIRIN 325 MG TABLET ONE (08:57)
[2023-07-08] MEDS ORDERED: CLOPIDOGREL 300 MG TABLET PO ONE (08:57)
[2023-07-08] MEDS ORDERED: PATIENT MAY USE OWN MEDS, ALL PO SCH (09:00)
--- NOTE | 2023-07-08 09:02 | Discharge Inst-Post CATH ---
Discharge Inst-CATH/EP Problems Reviewed?: Yes Post Cardiac Cath/EP D/C Inst Follow Up/Plan Appointment with Dr. Vallejo's office in 1 to 2 weeks <b>CARDIAC CATH/EP PROCEDURE DISCHARGE INSTRUCTIONS</b> ACTIVITY * Go Home directly and rest. * Limit activity of the leg (or wrist if it was used) for 7 days including aer obics, swimming, jogging, bicycling, etc. * Restrict stair-climbing for 7 days if possible, if not, climb up with your non-cath leg, then bring together on the same step. * Avoid lifting, pushing, pulling or excessive movement of the affected extremi ty for 7 days. * Customary sexual activity may be resumed after 2 days-use caution not to use a position that strains or causes pain to the affected extremity. * No driving for 24 hours. * NO SMOKING. * Avoid straining for bowel movements for 7 days. * Gentle walking on level ground is allowed. * Returning to work will depend on the type of procedure and the results. Your doctor will discuss this with you. CALL YOUR DOCTOR FOR ANY OF THE FOLLOWING: *If bleeding from the puncture site occurs- Apply gentle pressure to site with clean cloth and call your doctor or EMS. * If a knot or lump forms under the skin, increases in size, or causes pain. * If bruising appears to be worsening or moving further down your leg instead of disappearing. * Temperature above 101 F. CARE OF YOUR GROIN INCISION; * Bruising or purple discoloration of the skin near the puncture site is common. * You may shower only, no bathtub bathing for 5 days. Be careful to avoid slipping as your leg may feel stiff. * If a closure device was used on your femoral artery, please see the attached guide regarding care of the device and your leg. * Leave dressing on FOR 24 hours. CARE OF YOUR WRIST INCISION; * Bruising or purple discoloration of the skin near the puncture site is common. * You may shower. * DO NOT submerge wrist. * Leave dressing on FOR 24 hours. JESSIE VALLEJO MD Jul 08, 2023 09:02
--- NOTE | 2023-07-08 09:08 | Peripheral Report ---
Peripheral Report Physician (s)/Barber Instructor (s) Physician JESSIE ESPINAL MD Pre-Procedure Diagnosis Pre-Procedure Diagnosis: Peripheral arterial disease Post-Procedure Note Procedure Start Date: Jul 08, 2023 Name of Procedure: Bilateral lower extremity runoff Third order Additional imaging Balloon angioplasty to the left SFA and popliteal artery Findings/Procedure Note PROCEDURE NOTE: 62-year-old lady with extensive peripheral arterial disease, multiple intervention in the past, has been having increasing claudication and abnormal SERGIO, peripheral angiogram was scheduled. After explaining the procedure to the patient, all pros and cons were explained, all questions were answered. The patient signed the consent and then she was placed on the cardiac catheterization laboratory. The patient was placed on the cardiac catheterization laboratory. Groin was prepped SL fashion local anesthesia was used. Sheath placed in the right femoral artery, runoff to the right leg was done through the sheath. A rim catheter was advanced and placed at the left common iliac artery and runoff to the left leg was done then I advanced a Storq wire and exchanged the catheter and placed a straight catheter at the common femoral artery and did runoff to the left leg. Patient has multiple segment of severe in-stent restenosis. Sheath was exchanged into long 6 [place] sheath. Advanced to the mid left SFA angiogram was done Command 18 wire was advanced and I proceeded with balloon angioplasty using Derwent eighteen 5 x 100, did multiple inflation within the proximal left SFA stent and the mid stent, I was satisfied with the result with no residual stenosis. Did DSA imaging to the trifurcation and tibioperoneal trunk. Sheath was exchanged again to a short 6 [place] sheath, then closure device deployed FINDINGS: Right lower extremity: Right SFA has multiple area of severe in-stent restenosis Right popliteal artery is patent, Right tibioperoneal trunk is patent with patent trifurcation Left lower extremity: Left common iliac and external iliac are patent with no obstructive disease Left common femoral artery is patent with no obstructive disease Left SFA has multiple stent with severe in-stent restenosis proximally and distally successful balloon angioplasty using Derwent 5 x 100, multiple inflation with no residual stenosis. Left tibioperoneal trunk, anterior tibial, posterior tibial and peroneal artery are patent with brisk flow post intervention CONCLUSIONS: Severe in-stent restenosis in the left SFA proximal and mid stent successful balloon angioplasty with no residual stenosis, excellent flow down to the foot on the left leg Severe in-stent restenosis in the right SFA that need to be addressed at a later point if patient became symptomatic DISCUSSION AND RECOMMENDATIONS: Continue to maximize medical therapy, educated on smoking cessation again. Anesthesia Type: Conscious Sedation Estimated blood loss (mL): 20 ml Contrast Amount: 60 ml Post-Procedure Diagnosis Post-operative diagnosis: Claudication Peripheral arterial disease Hypertension Hyperlipidemia JESSIE ESPINAL MD Jul 08, 2023 09:07
== END 2023-07-08 14:22 | disposition home or self-care (01) ==
LOC: CATH 06:50 → ICU 09:20 → CATH 14:22
PROVIDERS: ATTEND Internal Medicine Cardiovascular Disease
DX: T82.856A Stenosis of peripheral vascular stent, initial encounter (principal); I70.213 Atherosclerosis of native arteries of extremities with intermittent claudication, bilateral legs; I10 Essential (primary) hypertension; E78.5 Hyperlipidemia, unspecified; I25.10 Atherosclerotic heart disease of native coronary artery without angina pectoris; E11.9 Type 2 diabetes mellitus without complications; I65.23 Occlusion and stenosis of bilateral carotid arteries; R55 Syncope and collapse; E03.9 Hypothyroidism, unspecified; J44.9 Chronic obstructive pulmonary disease, unspecified; M19.90 Unspecified osteoarthritis, unspecified site; K21.9 Gastro-esophageal reflux disease without esophagitis; Z95.5 Presence of coronary angioplasty implant and graft; Z79.02 Long term (current) use of antithrombotics/antiplatelets; Z87.891 Personal history of nicotine dependence; Z79.890 Hormone replacement therapy; Z79.82 Long term (current) use of aspirin; Z79.899 Other long term (current) drug therapy; Z79.84 Long term (current) use of oral hypoglycemic drugs
CPT/HCPCS: 37224; 71045; 80053; 80061; 81000; 85027; 85610; 85730; 87081; 93005; C1725; C1760; C1769 ×2; C1887 ×2; C1894 ×2; 36415